=== PATIENT | female | born 1985 | race Caucasian/White ===

== ENCOUNTER 2023-10-16 02:13 | Emergency (ER) | payer SELFPAY ==
[2023-10-16] MEDS ORDERED: ZIPRASIDONE MESYLA 20 MG/VIAL IM ONE (02:52)
[2023-10-16] MEDS ORDERED: LORazepam 2 MG/ML VIAL ONE (03:14)
[2023-10-16 04:13] LABS: Absolute Basophils 0.1 K/uL (0-0.5); Absolute Lymphocytes (CBC) 1.8 K/uL (0.7-4.9); Absolute Monocytes 0.8 K/uL (0.1-1.3); Absolute Neutrophil 9.4 K/uL (1.8-8.0); Basophils % 0.6 % (0-1.3); Eosinophils % 0.3 % (0-4.4); Hematocrit 39.1 % (36.0-45.0); Hemoglobin 13.6 g/dL (12.0-15.0); MCHC 34.8 g/dL (32.0-36.0); MCV 94.9 fL (80-100); MPV 8.8 fL (7.6-11.3); Monocytes % 6.5 % (3.3-12.3); Neutrophils % 77.6 % (41.7-73.7); Platelets 242 thou/uL (152-406); RBC Red Blood Cell Count 4.12 M/uL (3.86-4.86); Red Cell Distribution Width 12.9 % (12.1-15.2)
[2023-10-16 04:16] LABS: Specific Gravity 1.014 (1.005-1.030)
[2023-10-16 04:17] LABS: PT Prothrombin Time 12.1 SECONDS (9.5-12.5); PTT, Activated Partial Thromb 27.4 SECONDS (24.3-36.9); Protime INR 1.1; Specific Gravity 1.014 (1.005-1.030); Urine Bacteria None Seen /HPF (<20); Urine Bilirubin NEGATIVE (Negative); Urine Blood Negative (Negative); Urine Clarity Extremely Turbid (Clear); Urine Color Yellow (Yellow); Urine Culture Reflex Order NOT NEEDED; Urine Glucose NEGATIVE (Negative); Urine Ketones 1+ (Negative); Urine Microscopic Reflex YN ORDER UMIC; Urine Mucus Slight /HPF (None Seen); Urine Nitrite NEGATIVE (Negative); Urine Protein NEGATIVE (Negative); Urine RBC <5 /HPF (None Seen); Urine Urobilinogen Normal (Normal); Urine WBC <5 /HPF (<5)
[2023-10-16] MEDS ORDERED: ONDANSETRON 4 MG/2 ML VIAL ONE (04:22)
[2023-10-16] MEDS ORDERED: THIAMINE 200 MG/2 ML INJ ONE (04:22)
[2023-10-16] MEDS ORDERED: NA CHLORIDE 0.9% 2,000 ML ONE (04:23)
[2023-10-16 04:29] LABS: ALT/SGPT 16 U/L (13-56); AST/SGOT 23 U/L (15-37); Alkaline Phosphatase 69 U/L (45-117); Anion Gap 11.5 mEq/L (5.0-15.0); BUN Blood Urea Nitrogen 12 mg/dL (7-18); Barbiturates NEGATIVE (NEGATIVE); Benzodiazepines NEGATIVE (NEGATIVE); Bicarbonate 22 mEq/L (21-32); Bilirubin Direct 0.2 mg/dL (0-0.2); Bilirubin Indirect, Calculated 0.6 mg/dL (0.2-0.8); Bilirubin Total 0.8 mg/dL (0.2-1.0); Cocaine NEGATIVE (NEGATIVE); Globulin 4.1 g/dL (2.3-3.5); Glomerular Filtration Rate 110 ml/min (=/>90); Glucose Level 98 mg/dL (74-106); METHAMPHETAM POSITIVE (NEGATIVE); Methadone NEGATIVE (NEGATIVE); Opiates NEGATIVE (NEGATIVE); Phencyclidine NEGATIVE (NEGATIVE); Potassium 3.5 mEq/L (3.5-5.1); Protein, Total 8.1 g/dL (6.4-8.2); Sodium Level 134 mEq/L (136-145); THC Cannibis POSITIVE (NEGATIVE)
--- NOTE | 2023-10-16 11:32 | EDPHYS ---
Physician Documentation [facility] Name: Carolyn Aguirre Age: 38 yrs Sex: Female : 1985 Arrival Date: 10/16/2023 Time: 02:13 Bed 3 Private MD: ED Physician Igor Jackson HPI: 10/15 02:18 This 38 yrs old Female presents to ER via Unassigned with complaints of sp4 confusion . 02:18 38-year-old female brought in by EMS for primary complaint of confusion. Patient was sp4 found by bystander on the study and determined to be in incoherent condition. Bystander brought patient to the police department where patient was found confused and unaware of her age. She states she is 13. Patient also states she needs a place to lay down and get some rest. Patient states she does not have a place of residence. Patient states she does not know where she came from. . Historical: - Allergies: 02:22 No Known Allergies; jj7 - PMHx: 02:15 Unable to Obtain; jj7 - Immunization history:: Client reports having NOT received the Covid vaccine. Flu vaccine is not up to date. - Infectious Disease History:: Denies. - Family history:: not pertinent. - Social history:: Smoking status: Patient reports the use of cigarette tobacco products, smokes one pack cigarettes per day. Patient uses alcohol, on a daily basis. " A LOT". ROS: 02:18 Constitutional: ROS not available secondary to disorientation and confusion sp4 02:18 All other systems are negative, 02:18 Unable to obtain ROS due to patient's inability to understand questions, Exam: 02:18 Constitutional: This is a well developed, well nourished patient who is awake, alert, sp4 appears sunburned, moderate confusion and disorientation. Oriented to self and others. Head/Face: Normocephalic, atraumatic. Eyes: Pupils equal round and reactive to light, extra-ocular motions intact. Lids and lashes normal. Conjunctiva and sclera are not injected. Cornea within normal limits. Periorbital areas with no swelling, redness, or edema. ENT: Nares patent. No nasal discharge, no septal abnormalities noted. Tympanic membranes are normal and external auditory canals are clear. Oropharynx with no redness, swelling, or masses, exudates, or evidence of obstruction, uvula midline. Mucous membranes moist. Neck: Trachea midline, no thyromegaly or masses palpated, and no cervical lymphadenopathy. Supple, full range of motion without nuchal rigidity, or vertebral point tenderness. Chest/axilla: Normal chest wall appearance and motion. Nontender with no deformity. No lesions are appreciated. Cardiovascular: Regular rate and rhythm with a normal S1 and S2. No gallops, murmurs, or rubs. Normal PMI, no JVD. No pulse deficits. Respiratory: Lungs have equal breath sounds bilaterally, clear to auscultation and percussion. No rales, rhonchi or wheezes noted. No increased work of breathing, no retractions or nasal flaring. Abdomen/GI: Soft, with normal bowel sounds. No distension or tympany. No guarding or rebound. No evidence of tenderness throughout. Back: No spinal tenderness. No costovertebral tenderness. Skin: Warm, dry with normal turgor. Normal color with no rashes, no lesions, and no evidence of cellulitis. MS/ Extremity: Pulses equal, no cyanosis. Neurovascular intact. Full, normal range of motion. Neuro: Awake and alert, GCS 14, oriented to person and to others . Cranial nerves II-XII grossly intact. Motor strength 5/5 in all extremities. Sensory grossly intact. Psych: Awake, alert, with orientation to self and others. Appears intoxicated 10:42 ECG was reviewed by the Attending Physician. rn Vital Signs: 02:15 BP 118 / 76; Pulse 95; Resp 20; Temp 98.3; Pulse Ox 100% on R/A; Weight 95 kg; Height 5 jj7 ft. 7 in. ; 07:48 BP 106 / 76; Pulse 105; Resp 16; Pulse Ox 98% ; kn 08:45 BP 100 / 74; Pulse 103; Resp 16; kn 11:55 kn 02:15 Body Mass Index 32.80 (95.00 kg, 170.18 cm) j7 11:55 pt refused vital signs Estel[place] Coma Score: 02:18 Eye Response: spontaneous(4). Motor Response: obeys commands(6). Verbal Response: sp4 confused(4). Total: 14. MDM: 02:16 Patient medically screened. sp4 07:09 Differential Diagnosis altered mental status, sepsis, flu, Intoxication . Data sp4 reviewed: vital signs, lab test result(s), CBC, electrolytes, hepatic panel. Consideration of Admission/Observation Escalation of care including admission/observation considered. Transition of care: After a detail discussion of the patient's case, care is transferred to Glenn Etienne MD. ED course: Patient was allowed to rest and relax. Acute confusion stems from methamphetamine intoxication also cannabis intoxication. . 10/15 02:15 Order name: Acetaminophen; Complete Time: 04:58 sp4 10/15 02:15 Order name: Basic Metabolic Panel; Complete Time: 04:58 sp4 10/15 02:15 Order name: CBC with Diff; Complete Time: 04:58 sp4 10/15 02:15 Order name: ETOH Level; Complete Time: 04:58 sp4 10/15 02:15 Order name: Hepatic Function; Complete Time: 04:58 sp4 10/15 02:15 Order name: PT-INR; Complete Time: 04:58 sp4 10/15 02:15 Order name: Test, Urine; Complete Time: 04:58 sp4 10/15 02:15 Order name: Ptt, Activated; Complete Time: 04:58 sp4 10/15 02:15 Order name: Salicylate; Complete Time: 04:58 sp4 10/15 02:15 Order name: Urinalysis w/ reflexes; Complete Time: 04:58 sp4 10/15 02:15 Order name: Urine Drug Screen; Complete Time: 04:58 sp4 10/15 03:01 Order name: CK; Complete Time: 04:58 sp4 10/15 03:01 Order name: TSH; Complete Time: 04:58 sp4 10/15 03:02 Order name: T4 Free; Complete Time: 04:58 sp4 10/15 02:15 Order name: EKG; Complete Time: 02:16 sp4 10/15 02:15 Order name: EKG - Nurse/Tech; Complete Time: 07:53 sp4 10/15 02:15 Order name: IV Saline Lock; Complete Time: 04:34 sp4 10/15 02:15 Order name: Labs collected and sent; Complete Time: 03:39 sp4 10/15 02:15 Order name: Suicide Screening ([place]); Complete Time: 07:53 sp4 EC:42 Rate is 95 beats/min. Rhythm is regular. QRS [place] is Normal. [place] interval is normal. QRS rn interval is normal. QT interval is normal. No Q waves. T waves are Normal. No ST changes noted. Clinical impression: Normal ECG. Interpreted by me. Reviewed by me. Administered Medications: 02:22 Drug: Geodon IM 40 mg IM once Route: IM; Site: right deltoid; rv 12:04 Follow up: Response: No adverse reaction kn 03:19 Drug: LORazepam IM 4 mg IM once Route: IM; Site: left deltoid; rv 12:03 Follow up: Response: No adverse reaction kn 04:25 Drug: Ondansetron IVP 4 mg IVP once; over 2 minutes Route: IVP; Site: right forearm; rv 12:03 Follow up: Response: No adverse reaction kn 04:25 Drug: Thiamine IV 100 mg IV at bolus once Route: IV; Rate: bolus; Site: right forearm; rv 12:02 Follow up: Response: No adverse reaction; IV Status: Completed infusion kn 04:26 Drug: NS 0.9% IV 1000 ml IV at 1 bolus Per protocol; 1000 mL bolus Route: IV; Rate: 1 rv bolus; Site: right forearm; 12:04 Follow up: Response: No adverse reaction; IV Status: Completed infusion; IV Intake: kn 1000ml 04:26 Drug: NS 0.9% IV 1000 ml IV at 1 bolus Per protocol; 1000 mL bolus Route: IV; Rate: 1 rv bolus; Site: right forearm; 12:03 Follow up: Response: No adverse reaction; IV Status: Completed infusion; IV Intake: kn 1000ml Disposition Summary: 10/16/23 11:31 Discharge Ordered Notes: Location: Home rn Problem: new rn Symptoms: have improved rn Condition: Stable rn Diagnosis - Adverse effect of amphetamines rn Followup: rn - With: Private Physician - When: As needed - Reason: Recheck today's complaints, Re-evaluation by your physician Discharge Instructions: - Discharge Summary Sheet rn - Methamphetamines Use Disorder rn Forms: - Medication Reconciliation Form rn - Thank You Letter rn - Antibiotic emergency room rn - Prescription Opioid Use rn - Patient Portal Instructions rn - Leadership Thank You Letter rn Signatures: Dispatcher [employer] Glenn Healy MD MD rn Vicente, Ronaldo, RN RN rv Johnson, Juwairiyah, RN RN jj7 Igor Jackson MD MD sp4 TAMIA GEE RN kn Corrections: (The following items were deleted from the chart) 02:16 02:16 ACETAMINOPHEN+C.LAB.BRZ ordered. EDMS EDMS 02:16 02:16 BASIC METABOLIC PANEL+C.LAB.BRZ ordered. EDMS EDMS 02:16 02:16 CBC+H.LAB.BRZ ordered. EDMS EDMS 02:16 02:16 ETHANOL+C.LAB.BRZ ordered. EDMS EDMS 02:16 02:16 HEPATIC FUNCTION+C.LAB.BRZ ordered. EDMS EDMS 02:16 02:16 PROTIME (+INR)+COAG.LAB.BRZ ordered. EDMS EDMS 02:16 02:16 Test, Urine+UC.LAB.BRZ ordered. EDMS EDMS 02:16 02:16 PTT, ACTIVATED+COAG.LAB.BRZ ordered. EDMS EDMS 02:16 02:16 SALICYLATE+C.LAB.BRZ ordered. EDMS EDMS 02:16 02:16 Urinalysis+U.LAB.BRZ ordered. EDMS EDMS 02:16 02:16 URINE DRUG SCREEN+UC.LAB.BRZ ordered. EDMS EDMS 03:02 03:02 THYROID STIMULAT HORMONE+C.LAB.BRZ ordered. EDMS EDMS
--- NOTE | 2023-10-16 11:32 | ER ---
Nurse's Notes [facility] Name: Carolyn Aguirre Age: 38 yrs Sex: Female : 1985 Arrival Date: 10/16/2023 Time: 02:13 Bed 3 Private MD: Diagnosis: Adverse effect of amphetamines Presentation: 10/15 02:15 Chief complaint: EMS states: PT WAS WAS FOUND WONDERING ON THE STREETS A [employer] jj7 TOOK HER TO THE PD OFFICE. PT CALLED EMS. PT IS CONFUSED. Coronavirus screen: At this time, the client does not indicate any symptoms associated with coronavirus-19. Ebola Screen: No symptoms or risks identified at this time. Initial Sepsis Screen: Does the patient meet any 2 criteria? No. Patient's initial sepsis screen is negative. Does the patient have a suspected source of infection? No. Patient's initial sepsis screen is negative. Risk Assessment: Do you want to hurt yourself or someone else? Unable to obtain. Onset of symptoms is unknown. 02:15 Method Of Arrival: EMS: [facility] jj7 02:15 Acuity: [place] 3 jj7 Triage Assessment: 02:15 General: Appears in no apparent distress. well groomed, Behavior is agitated, anxious, jj7 uncooperative. Pain: Denies pain. Neuro: No deficits noted. Neuro: No deficits noted. Level of Consciousness is awake, alert, confused, Oriented to person. Cardiovascular: No deficits noted. Respiratory: No deficits noted. GI: No deficits noted. : No deficits noted. Historical: - Allergies: :22 No Known Allergies; jj7 - PMHx: 02:15 Unable to Obtain; jj7 - Immunization history:: Client reports having NOT received the Covid vaccine. Flu vaccine is not up to date. - Infectious Disease History:: Denies. - Family history:: not pertinent. - Social history:: Smoking status: Patient reports the use of cigarette tobacco products, smokes one pack cigarettes per day. Patient uses alcohol, on a daily basis. " A LOT". Screenin:22 [facility] ED Fall Risk Assessment (Adult) History of falling in the last 3 months, rv including since admission No falls in past 3 months (0 pts) Confusion or Disorientation Yes (5 pts) Score/Fall Risk Level 3 or more points = High Risk Oriented to surroundings, Maintained a safe environment, Educated pt \\T\\ family on fall prevention, incl call for assistance when getting out of bed, Assessed \\T\\ reinforced patient's understanding of fall precautions. Abuse screen: Denies threats or abuse. Denies injuries from another. Nutritional screening: No deficits noted. Tuberculosis screening: No symptoms or risk factors identified. Assessment: 02:15 Reassessment: SEE TRIAGE ASSESSMENT. [facility] 03:40 Reassessment: unable to establish IV, blood specimen collected and sent to lab, pt is rv refusing IV insertion at this time. 07:27 Reassessment: Pt remains sleeping, but awakens when called. cm10 07:56 Reassessment: Patient appears in no apparent distress at this time. pt able to wake up kn with verbal stimuli, is in no acute distress, vss. pt informed to be d/c soon. pt verbalizes understanding. Patient denies pain at this time. 08:15 Reassessment: Patient appears in no apparent distress at this time. Patient and/or db family updated on plan of care and expected duration. Pain level reassessed. Patient is alert, oriented x 3, equal unlabored respirations, skin warm/dry/pink. PT SITTING UP TALKING WITH STAFF. STATES IS HOMELESS. 11:59 Reassessment: Patient appears in no apparent distress at this time. Patient is alert, kn oriented x 3, equal unlabored respirations, skin warm/dry/pink. Patient states symptoms have improved. Vital Signs: 02:15 BP 118 / 76; Pulse 95; Resp 20; Temp 98.3; Pulse Ox 100% on R/A; Weight 95 kg; Height 5 jj7 ft. 7 in. ; 07:48 BP 106 / 76; Pulse 105; Resp 16; Pulse Ox 98% ; kn 08:45 BP 100 / 74; Pulse 103; Resp 16; kn 11:55 kn 02:15 Body Mass Index 32.80 (95.00 kg, 170.18 cm) [facility] 11:55 pt refused vital signs [place] Coma Score: 02:18 Eye Response: spontaneous(4). Motor Response: obeys commands(6). Verbal Response: sp4 confused(4). Total: 14. ED Course: 02:14 Patient arrived in ED. vk 02:14 Igor Jackson MD is Attending Physician. sp4 02:15 Arm band placed on right wrist. Patient placed in an exam room, on a stretcher, on jj7 pulse oximetry. 02:22 Nato Salguero, SYLVIE is Primary Nurse. rv 02:22 Triage completed. jj7 02:22 Patient has correct armband on for positive identification. Client placed on continuous rv cardiac and pulse oximetry monitoring. NIBP monitoring applied. thread grinder on. 02:22 No provider procedures requiring assistance completed. rv 03:39 T4 Free Sent. rv 03:39 TSH Sent. rv 03:39 CK Sent. rv 03:39 Acetaminophen Sent. rv 03:39 Basic Metabolic Panel Sent. rv 03:39 CBC with Diff Sent. rv 03:39 ETOH Level Sent. rv 03:39 Hepatic Function Sent. rv 03:39 PT-INR Sent. rv 03:39 Test, Urine Sent. rv 03:39 Ptt, Activated Sent. rv 03:39 Salicylate Sent. rv 03:39 Urinalysis w/ reflexes Sent. rv 03:39 Urine Drug Screen Sent. rv 03:39 Initial lab(s) drawn, by me, sent to lab. Missed attempt(s): 20 gauge in right rv antecubital area. 04:26 Inserted saline lock: 22 gauge in right forearm, using aseptic technique. rv 07:48 EKG completed in triage. Results shown to MD. kn 11:15 No apparent distress. Resting quietly. Appears to be sleeping. kn 11:59 Provided Education on: methamphetamines use disorder . kn 11:59 Accessed IV discontinued, intact, bleeding controlled, No redness/swelling at site. kn Administered Medications: 02:22 Drug: Geodon IM 40 mg IM once Route: IM; Site: right deltoid; rv 12:04 Follow up: Response: No adverse reaction kn 03:19 Drug: LORazepam IM 4 mg IM once Route: IM; Site: left deltoid; rv 12:03 Follow up: Response: No adverse reaction kn 04:25 Drug: Ondansetron IVP 4 mg IVP once; over 2 minutes Route: IVP; Site: right forearm; rv 12:03 Follow up: Response: No adverse reaction kn 04:25 Drug: Thiamine IV 100 mg IV at bolus once Route: IV; Rate: bolus; Site: right forearm; rv 12:02 Follow up: Response: No adverse reaction; IV Status: Completed infusion kn 04:26 Drug: NS 0.9% IV 1000 ml IV at 1 bolus Per protocol; 1000 mL bolus Route: IV; Rate: 1 rv bolus; Site: right forearm; 12:04 Follow up: Response: No adverse reaction; IV Status: Completed infusion; IV Intake: kn 1000ml 04:26 Drug: NS 0.9% IV 1000 ml IV at 1 bolus Per protocol; 1000 mL bolus Route: IV; Rate: 1 rv bolus; Site: right forearm; 12:03 Follow up: Response: No adverse reaction; IV Status: Completed infusion; IV Intake: kn 1000ml Medication: 02:22 VIS not applicable for this client. rv Intake: 12:03 IV: 1000ml; Total: 1000ml. kn 12:04 IV: 1000ml; Total: 2000ml. kn Outcome: 08:45 Condition: stable kn 11:31 Discharge ordered by . rn 11:59 Discharged to home kn 11:59 Discharged to home ambulatory, 11:59 Discharge instructions given to patient, 12:04 Patient left the ED. db Signatures: Glenn Etienne MD MD rn Vicente, Ronaldo RN RN Toña Shah RN RN jj7 Umu Valdes RN RN Igor Leung MD MD sp4 Emily Naik, RN RN cm10 Sandy Walker KARLENE, SYLVIE RN martha
[2023-10-16 15:06] VITALS: BP 100/74; TEMP 98.3; O2SAT 98
== END 2023-10-16 12:04 | disposition home or self-care (01) ==
LOC: ER 02:13
DX: R41.0 Disorientation, unspecified (principal); T43.625A Adverse effect of amphetamines, initial encounter
CPT/HCPCS: 36415; 80048; 80076; 80143; 80179; 80307; 81001; 81025; 82077; 82550; 84439; 84443; 85025; 85610; 85730; 93005; 96365; 96366; 96372; 96375; 99285; J2405; J3411; J3486; J7030

== ENCOUNTER 2023-10-17 22:06 | Emergency (ER) | payer SELFPAY ==
--- OUTSIDE RECORDS SUMMARY | 2023-10-17 22:10 | XMS REPORT | Continuity of Care Document ---
Author Name Unknown Address [address] [facility] [address] [place] [address] [facility] Address [address] [facility] [address] [place] [address] Care Team Providers Care Pv Design Engineer Name Role Phone PCP, PATIENT DOES NOT HAVE A Primary Care Physic sahil Unavailable Zain FERNÁNDEZ, Maicol No Attending Clinician [phone] Virgil Small MD Attending Clinician [phone] VIRGIL SMALL Attending Clinician Unavailab Ian Tripp Attending Clinician Unavaila Mervin Brown Attending Clinician Unavailable Nain Nuñez Attending Clinician Unavailable Kelly Weaver Attending Clinician Unavailable Fanta Brannon Attending Clinician Unavailable BAKARI_ Attending Clinician Unavail able PAOLA CORNELL Attending Clinician Unavailab Bandar Bell Attending Clinician Unavailable UNDEFINED Admitting Clinician Unavailable Physician, No Primary or Family Admitting Clinic sahil Unavailable BAKARI_ Admitting Clinician Unavail able PAOLA CORNELL Admitting Clinician Unavailab le Payers Payer Name Policy Type Policy Number Effective Date Expirati on Date Source [facility] [id number] [facility] (O) [id number] Problems Condition Name Condition Details Condition Category Status Onset Date Resolution Date Last Treatment Date Treating Clinician Comments Source Boil of vulva Boil of vulva Disease Active 09-26 00:00: 00 [facility] Depression Depression Disease Active 08-03 00:00: 00 Overview: Formattin g of this note might be different from the original. bipolor [facility] Morbid obesity, unspecifie d obesity type Morbid obesity, unspecifie d obesity type Disease Active 08-03 00:00: 00 [facility] Allergies, Adverse Reactions, Alerts Allergy Name Allergy Type Status Severity Reaction(s) Onset Date Inactive Date Treating Clinician Comments Source No Known Allergie s DA Active U 2022-07 0-17 00:00: 00 [facility] No Known Drug Allergie s DA Active U 4-26 00:00: 00 [facility] No Known Allergie s DA Active U 8-23 00:00: 00 [facility] No Known Allergie s DA Active U 0 8-23 00:00: 00 [facility] NO KNOWN ALLERGIE S Drug Class Active [facility] Social History Social Habit Start Date Stop Date Quantity Comments Source History of tobacco use Cigarette Smoker [facility] of Social function 2019-01-09 00:00:00 2019-01-09 00:00:00 [facility] Alcohol intake 2018-10-30 00:00:00 2018-10-30 00:00:00 Current drinker of alcohol (finding) [facility] Alcohol Comment 2017-10-26 00:00:00 2017-10-26 00:00:00 social [facility] Cigarettes smoked current (pack per day) - Reported 2016-08-03 00:00:00 2016-08-03 00:00:00 [facility] Tobacco use and exposure 2016-08-03 00:00:00 2016-08-03 00:00:00 Smokeless tobacco non-user [facility] Sex Assigned At 1985 00:00:00 1985 00:00:00 [facility] Smoking Status Start Date Stop Date Source Smokes tobacco daily 2016-08-03 00:00:00 [facility] Medications Ordered Medication Name Filled Medication Name Start Date Stop Date Current Medication? Ordering Clinician Indication Dosage Frequency Signature (SIG) Comments Components Source ALPRAZolam (XANAX) tablet 2 mg 09-24 16:15: 00 09-24 16:18 :00 No 2mg 2 mg, Oral, ONCE, 1 dose, On Sun09/25/23 at 1115, JEF [facility] nicotine (NICODERM) 21 mg/24 hr patch 1 Patch 09-24 15:15: 00 Yes 1{patch } 1 Patch, Topical, Administer over 24 Hours, Q24H, First dose on Sun09/25/23 at 1015, Until Discontinu ed, Routine [facility] hydrOXYzine (ATARAX) tablet 50 mg 09-24 15:00: 00 09-24 15:12 :00 No 50mg 50 mg, Oral, ONCE, 1 dose, On Sun09/25/23 at 1000, JEF [facility] LURASIDONE HCL (LATUDA ORAL) 10-30 13:49: 15 Yes Take by mouth. [facility] hydrOXYzine 50 mg tablet 10-30 13:49: 15 Yes 837 50mg Take 50 mg by mouth daily. [facility] medroxyPROG ESTERone (DEPO-PROVE RA) injection 150 mg 10-26 16:15: 00 Yes [id number] 150mg [facility] Immunizations Ordered Immunization Name Filled Immunization Name Date Status Comments Source Influenza Virus Vaccine Quad .5 mL IM 6+ MO (FLUZONE/FLULAVAL/FL UARIX) Unknown Completed [facility] Vital Signs Vital Name Observation Time Observation Value Comments S nicky Systolic blood pressure 2023-09-26 08:43:00 136 mm[Hg] [facility] Diastolic blood pressure 2023-09-26 08:43:00 78 mm[Hg] [facility] Heart rate 2023-09-26 08:43:00 84 /min [facility] Respiratory rate 2023-09-26 08:43:00 20 /min [facility] Oxygen saturation in Arterial blood by Pulse oximetry 2023-09-26 08:43:00 99 /min [place] [facility] Body temperature 2023-09-25 23:20:00 36.67 Rossy [facility] Body weight 2023-09-25 08:57:00 98.884 kg [facility] BMI 2023-09-25 08:57:00 36.28 kg/m2 [facility] Procedures Procedure Date / Time Performed Performing Clinician Source POCT TEST 2023-09-25 10:41:00 David Pittman [facility] URINALYSIS 2023-09-25 10:30:00 Maicol Pittman Un [facility] URINE DRUG (IMMUNOASSAY) - COMPREHENSIVE DRUG SCREEN W/O REFLEX 2023-09-25 10:30:00 Maicol Pittman [facility] COMP. METABOLIC PANEL ([id number]) 2023-09-25 10:18:00 Maicol Pittman [facility] SALICYLATE 2023-09-25 10:18:00 [facility] 2023-09-25 10:18:00 Maicol Pittman Un [facility] COVID-19 (ID NOW RAPID TESTING) 2023-09-25 10:18:00 Maicol Pittman [facility] LAB ONLY COVID INTERPRETATION 2023-09-25 10:18:00 Maicol Pittman [facility] Encounters Start Date/Time End Date/Time Encounter Type Admission Type Attending Clinicians Care Facility Care Department Encounter ID Source 2021-10-25 20:50:00 Inpatient [facility] [id number] [facility] 2021-10-25 20:50:00 Inpatient [facility] [id number] [facility] 2023-09-25 03:59:00 2023-09-26 03:59:00 Emergency Maicol Pittman Lynda [facility] [id number] [facility] 2023-09-25 03:59:00 2023-09-26 03:59:00 Emergency X VIRGIL SMALL [facility] ERT [id number] [facility] 2023-04-17 14:38:00 2023-04-19 11:18:00 Emergency EM Ian Llanes [facility] [id number] [facility] 2023-03-19 13:30:05 2023-03-19 13:30:05 Outpatient [facility] [id number] [place] 2023-01-04 11:17:49 2023-01-04 11:17:49 Outpatient [facility] [id number] [place] 2023-01-01 15:12:05 2023-01-01 15:12:05 Outpatient [facility] [id number] Han Gerald [place] 2022-11-26 17:44:00 2022-11-27 09:04:00 Emergency EM Mervin Tadeo [facility] [id number] [facility] 2022-09-21 06:59:00 2022-09-21 07:50:00 Emergency EM Nain Nuñez [facility] [id number] 23 [facility] 2022-09-20 23:00:00 2022-09-21 04:30:00 Emergency EM Kelly Weaver [facility] [id number] 68 [facility] 2022-09-20 17:22:00 2022-09-20 18:45:00 Emergency EM Fanta Brannon [facility] [id number] [facility] 2021-11-16 05:24:00 2021-11-16 05:24:00 Outpatient MARTITA_DO HOPKINS__ [facility] [id number] [facility] 2021-11-16 05:24:00 2021-11-16 05:24:00 Outpatient ELZA HOPKINS__ [facility] [id number] [facility] 2021-10-26 00:00:00 2021-10-26 00:00:00 Outpatient R PAOLA CORNE[address] [facility] [id number] [facility] 2021-02-21 14:27:00 2021-02-24 20:00:00 Emergency EM [id number] [facility] Results Test Description Test Time Test Comments Results Result Comments Source Salicylate 10:47:14 SALICYLATE<10mg/L2023 5:47 AM [facility] LABORATORY SERVICESTherapeutic Range: ? Analgesic and Antipyretic Use ? 20-100 mg/L ? ? Anti-Inflammatory Use ? 100-250 mg/L Toxic Range: ? Greater than 300 mg/L [facility] ETHANOL 10:47:09 ALCOHOL<10mg/dL09/25/19 5:47 AM [facility] LABORATORY SERVICESToxic Greater than or equal to 80 mg/dL. NOTE: Whole blood values are approximately 10% to 15% lower than serum and plasma. [facility] ([id number][facility]2023-09-25 10:46:48* Test Item Value Reference Range Interpretation Comme nts NA (test code = 8183174594) 137 mmol/L 135-145 K (test code = 4502741131) 3.6 mmol/L 3.5-5.0 CL (test code = 2106320212) 101 mmol/L 98-108 CO2 TOTAL (test code = 0228685004) 26 mmol/L 23-31 AGAP (test code = 9011915581) 10 2-16 BUN (test code = 6940372379) 5 mg/dL 7-23 L GLUCOSE (test code = 4171120113) 93 mg/dL 70-110 CREATININE (test code = 2160-0) 0.64 mg/dL 0.50-1.04 TOTAL BILI (test code = 4823020975) 0.7 mg/dL 0.1-1.1 CALCIUM (test code = 0561750641) 10.0 mg/dL 8.6-10.6 T PROTEIN (test code = 2119885799) 8.0 g/dL 6.3-8.2 ALBUMIN (test code = 2612394835) 5.0 g/dL 3.5-5.0 ALK PHOS (test code = 3060658451) 58 U/L 34-122 ALTv (test code = 1742-6) 15 U/L 5-35 AST(SGOT) (test code = 5124665003) 32 U/L 13-40 eGFR (test code = 20131-6) 116.9 mL/min/1.73m2 CKD-EPI eGFR (2020). Assuming creatinine has been stable day-to-day for at least three months, the eGFR indicates Category G1 (>= 90 mL/min/1.73 m2) Lab Interpretation (test code = 56333-9) Abnormal [facility] [id number] 10:43:00* Test Item Value Reference Range Interpretation Comme nts POCT PREG (test code = 1605) Negative On board controls acceptable with C Line (test code = 3574) Yes POCT PREG LOT # (test code = 3575) [id number] POCT PREG TEST DATE ( test code = 3576) 08/06/2024 Lab Interpretation (test cod e = 45628-2) Normal [facility] [id number] 18:48:00* Test Item Value Reference Range Interpretation Comme nts COVID 19 INHOUSE AG (test co de = [id number]) NEGATIVE NEGATIVE URINALYSIS [id number] 16:30:00* Test Item Value Reference Range Interpretation Comme nts UA COLOR (test code = COLU) Light-Yellow YELLOW UA APPEARANCE (test code = APPU) Cloudy CLEAR A IS THE SAMPLE FROM ER OR L&D?Y IF THE ANSWER IS NO,PLEASE DOCUMENT TWO RN SIGNATURES HERE- by [email or web address] 04/17/23 1629 UA BILIRUBIN DIPSTICK (test code = BILU) NEGATIVE mg/dL NEGATIVE UA SPECIFIC GRAVITY (test code = SGU) 1.008 1.001-1.035 UA PH DIPSTICK (test code = BILLY) 5.5 5.0-8.0 UA UROBILINIOGEN DIPSTICK (test code = URO) Normal mg/dL NEGATIVE UA NITRITE DIPSTICK (test code = RANDA) NEGATIVE NEGATIVE UA LEUKOCYTE ESTERASE W REFLEX (test code = LEUUR) 25 Alicia/uL (Trace) Alicia/uL NEGATIVE A UA WBC (test code = WBCU) 0-5 per HPF 0-5 UA RBC (test code = RBCU) 0-2 #/HPF 0-5 UA EPITHELIAL CELLS (test code = EPIU) MOD per HPF FEW UA BACTERIA (test code = BACU) NONE SEEN #/HPF NONE UA GLUCOSE DIPSTICK (test code = DGLUU) NEGATIVE mg/dL NEGATIVE UA KETONE DIPSTICK (test code = KETU) NEGATIVE mg/dL NEGATIVE UA BLOOD DIPSTICK (test code = MARTINEZ) Negative mg/dL NEGATIVE UA PROTEIN DIPSTICK (test code = PROU) NEGATIVE mg/dL NEGATIVE UA MUCUS (test code = MUCU) FEW #/LPF FEW Urine Source? Clean CatchUR HCG [id number] 16:30:00* Test Item Value Reference Range Interpretation Comme nts UR HCG QUAL (test code = HCGQLU) NEGATIVE This HCGQL test is NOT applicable for MALE patients.Check with nurse about probable order error.If Tumor Marker Test needed, nurse should order test "HCGTU"(Test #550.83142) Urine Source? Clean CatchDRUGS OF ABUSE SCREEN [id number] 16:30:00* Test Item Value Reference Range Interpretation Comme nts URN COCAINE (test code = COCAURN) NEGATIVE See_Comment [Automated kidthing] The system which generated this result transmitted reference range: <300 ng/mL. The reference range was not used to interpret this result as normal/abnormal. URN CANNABINOIDS (test code = CANNABURN) NEGATIVE See_Comment [Automated [employer]] The system which generated this result transmitted reference range: <50 ng/mL. The reference range was not used to interpret this result as normal/abnormal. URN AMPHETAMINE (test code = AMPHETURN) NEGATIVE See_Comment [Automated mes jv] The system which generated this result transmitted reference range: <1000 ng/mL. The reference range was not used to interpret this result as normal/abnormal. URN BARBITURATE (test code = BARBITURN) NEGATIVE See_Comment [Automated [employer] jv] The system which generated this result transmitted reference range: <200 ng/mL. The reference range was not used to interpret this result as normal/abnormal. URN BENZODIAZEPINE (test code = BENZOURN) NEGATIVE See_Comment [Automated mess age] The system which generated this result transmitted reference range: <200 ng/mL. The reference range was not used to interpret this result as normal/abnormal. URN OPIATES (test code = OPIATURN) NEGATIVE See_Comment [Automated [employer] ge] The system which generated this result transmitted reference range: <300 ng/mL. The reference range was not used to interpret this result as normal/abnormal. URN PHENCYCLIDINE (PCP) (test code = PHENCURN) NEGATIVE See_Comment [Automate d message] The system which generated this result transmitted reference range: <25 ng/mL. The reference range was not used to interpret this result as normal/abnormal. URN METHADONE (test code = METHAURN) NEGATIVE See_Comment [Automated messa ge] The system which generated this result transmitted reference range: <300 ng/mL. The reference range was not used to interpret this result as normal/abnormal. Urine Source? Clean CatchBASIC METABOLIC [id number] 16:07:00* Test Item Value Reference Range Interpretation Comme nts SODIUM (test code = NA) 138 mmol/L 136-145 N POTASSIUM (test code = K) 3.7 mmol/L 3.5-5.1 N CHLORIDE (test code = CL) 109.0 mmol/L 98-107 H CARBON DIOXIDE (test code = CO2) 21.0 mmol/L 21-32 N ANION GAP (test code = GAP) 11.7 10-20 N GLUCOSE (test code = GLU) 72 mg/dL 74-106 L BLOOD UREA NITROGEN (test code = BUN) < 5 mg/dL 7-18 L GLOMERULAR FILTRATION RATE (test code = GFR) > 60 mL/min >=60 The Glomerular Filtration Rate is a calculated parameterbased on serum Creatinine, patient age and sex. GFR valuesless than 60 mL/min/1.73 square meters are indicative ofChronic Kidney Disease. Values less than 15 mL/min/1.73square meters indicate Kidney failure. The calculation forGFR is based on the CKD-EPI (2020) calculation. This formulais race indifferent and is the recommended formula for GFRby the National Kidney Foundation for Adults.The GFR will not calculate if the sex is unknown or if thepatient's age is <18 years. CREATININE (test code = CREAT) 0.70 mg/dL 0.55-1.02 N Note change in reference range due to change in reagent. BUN/CREATININE RATIO (test code = BUN/CREA) 6.8 10-20 L CALCIUM (test code = CA) 8.9 mg/dL 8.5-10.1 N HEPATIC FUNCTION [id number] 16:07:00* Test Item Value Reference Range Interpretation Comme nts TOTAL PROTEIN (test code = PROT) 7.7 gram/dL 6.4-8.2 N ALBUMIN (test code = ALB) 3.8 g/dL 3.4-5.0 N GLOBULIN (test code = GLOB) 3.9 gram/dL 2.7-4.2 N ALBUMIN/GLOBULIN RATIO (test code = A/G) 1.0 0.75-1.50 N BILIRUBIN TOTAL (test code = BILT) 0.40 mg/dL 0.0-1.0 N BILIRUBIN DIRECT (test code = BILD) 0.10 mg/dL 0.0-0.20 N SGOT/AST (test code = AST) 30 IUnit/L 15-37 N SGPT/ALT (test code = ALT) 27 IUnit/L 12-78 N ALKALINE PHOSPHATASE TOTAL (test code = ALKP) 51 IUnit/L 45-117 N Note change in reference range due to change in reagent. [id number] 16:07:00* Test Item Value Reference Range Interpretation Comme nts ALCOHOL (test code = ALC) 26 mg/dL 0.0-3.0 H -INTERPRE TIVE DATA NOTE: POSITIVE SCREENING RESULTS SHOULD BE CONSIDERED PRESUMPTIVE.WHEN COLLECTED FOR MEDICAL PURPOSES ONLY. SPECIMEN WILL NOTBE COLLECTED BY CHAIN OF CUSTODY.IF A CONFIRMATION OF POSITIVE RESULTS IS DESIRED, ACONFIRMATION TEST MUST BE REQUESTED BY THE PHYSICIAN AT ANADDITIONAL CHARGE TO THE PATIENT. CBC W/O [id number] 15:53:00* Test Item Value Reference Range Interpretation Comme nts WHITE BLOOD CELL (test code = WBC) 6.9 K/mm3 4.5-12.5 N RED BLOOD CELL (test code = RBC) 4.50 mill/mm3 3.7-5.2 N HEMOGLOBIN (test code = HGB) 15.5 gram/dL 11.5-15.5 N HEMATOCRIT (test code = HCT) 46.1 % 36.0-46.0 H MEAN CELL VOLUME (test code = MCV) 102.4 fL 80-98 H MEAN CELL HGB (test code = MCH) 34.4 picogram 27.0-33.0 H MEAN CELL HGB CONCETRATION (test code = MCHC) 33.6 gram/dL 33.0-36.0 N RED CELL DISTRIBUTION WIDTH (test code = RDW) 12.6 % 11.6-16.2 N PLATELET COUNT (test code = PLT) 228 K/mm3 150-450 N MEAN PLATELET VOLUME (test c ode = MPV) 10.0 fL 6.7-11.0 N VAGINAL PATHOGENS DNA [id number] 14:00:43* Test Item Value Reference Range Interpretation Comme nts BROOKE SPECIES (test code = 73606) NEGATIVE NEGATIVE G. VAGINALIS (test code = 60432) POSITIVE NEGATIVE A T. VAGINALIS (test code = 66563) NEGATIVE NEGATIVE Note: The [facility] VPIII Microbial Identification Testis a DNA probe test intended for use in the detectionand identification of Brooke species, Gardnerellavaginalis and Trichomonas vaginalis nucleic acid. UNLESS OTHERWISE INDICATED, ALL TESTING PERFORMED AT [facility] [address] [place] [address], [place] [address] SHELL FREEZING MACHINE OPERATOR: FINN CUEVAS M.D. CLIA NUMBER [id number] [facility] [place] [id number] HEPATIC FUNCTION [id number] 19:32:00* Test Item Value Reference Range Interpretation Comme nts TOTAL PROTEIN (test code = PROT) 8.1 G/DL 6.4-8.2 N ALBUMIN (test code = ALB) 3.4 G/DL 3.4-5.0 N BILIRUBIN TOTAL (test code = BILT) 0.40 MG/DL 0.2-1.2 N BILIRUBIN DIRECT (test code = BILD) 0.10 MG/DL 0.00-0.30 N BILIRUBIN INDIRECT (test cod e = BILIND) 0.30 MG/DL 0.2-1.2 N SGOT/AST (test code = AST) 19 Unit/L 15-37 N SGPT/ALT (test code = ALT) 53 Unit/L 12-78 N ALKALINE PHOSPHATASE TOTAL ( test code = ALKP) 65 Unit/L 45-117 N [id number] 19:32:00* Test Item Value Reference Range Interpretation Comme nts ALCOHOL (test code = ALC) < 3 MG/DL 0-10 N BASIC METABOLIC [id number] 19:32:00* Test Item Value Reference Range Interpretation Comme nts SODIUM (test code = NA) 135 mmol/L 134-147 N POTASSIUM (test code = K) 4.4 mmol/L 3.4-5.0 N CHLORIDE (test code = CL) 104 mmol/L 100-108 N CARBON DIOXIDE (test code = CO2) 29 mmol/L 21-32 N ANION GAP (test code = GAP) 2.0 GAP calc 4.0-15.0 L GLUCOSE (test code = GLU) 191 MG/DL 70-110 H BLOOD UREA NITROGEN (test code = BUN) 26 MG/DL 7-18 H GLOMERULAR FILTRATION RATE (test code = GFR) >=60 max estimate estGFR >60 The Glomerular Filtration Rate is a calculated parameterbased on serum Creatinine, patient age and sex. GFR valuesless than 60 mL/min/1.73 square meters are indicative ofChronic Kidney Disease. Values less than 15 mL/min/1.73square meters indicate Kidney failure. The calculation forGFR is based on the CKD-EPI (2020) calculation. This formulais race indifferent and is the recommended formula for GFRby the National Kidney Foundation for Adults.The GFR will not calculate if the sex is unknown or if thepatient's age is <18 years. CREATININE (test code = CREAT) 0.9 MG/DL 0.6-1.0 N CALCIUM (test code = CA) 8.9 MG/DL 8.5-10.1 N UA RFLX MICR CULT IF [id number] 19:23:00* Test Item Value Reference Range Interpretation Comme nts UA COLOR (test code = COLU) STRAW discript YEL/STRAW UA APPEARANCE (test code = APPU) CLEAR discript CLEAR UA GLUCOSE DIPSTICK (test code = DGLUU) NEGATIVE mg/dL NEG UA BILIRUBIN DIPSTICK (test code = BILU) NEGATIVE mg/dL NEG UA KETONE DIPSTICK (test code = KETU) NEGATIVE mg/dL NEG UA SPECIFIC GRAVITY (test code = SGU) <=1.005 SG 1.005-1.030 UA BLOOD DIPSTICK (test code = MARTINEZ) NEGATIVE mg/DL NEG UA PH DIPSTICK (test code = BILLY) 6.5 pH UNITS 5.0-7.0 UA PROTEIN DIPSTICK (test code = PROU) NEGATIVE mg/dL NEG UA UROBILINIOGEN DIPSTICK (test code = URO) 0.2 mg/dL <2.0 UA NITRITE DIPSTICK (test code = RANDA) NEGATIVE SCREEN NEG UA LEUKOCYTE ESTERASE DIPSTICK (test code = LEUU) NEGATIVE Leuk/mcL NEGATIVE Indication for culture: Gross HematuriaSOURCE OF URINE: CLEAN CATCHDRUGS OF ABUSE SCREEN [id number] 19:23:00* Test Item Value Reference Range Interpretation Comme nts URN COCAINE (test code = COCAURN) NEGATIVE SCcutoff See_Comment UNCONFIRMED SCREENING RESULTS SHOULD NOT BE USED FORNON-MEDICAL PURPOSES. [Automated message] The system which generated this result transmitted reference range: <300 NG/ML. The reference range was not used to interpret this result as normal/abnormal. URN CANNABINOIDS (test code = CANNABURN) NEGATIVE SCcutoff See_Comment UNCONFIRMED SCREENING RESULTS SHOULD NOT BE USED FORNON-MEDICAL PURPOSES. [Automated message] The system which generated this result transmitted reference range: <50 NG/ML. The reference range was not used to interpret this result as normal/abnormal. URN AMPHETAMINE (test code = AMPHETURN) NEGATIVE SCcutoff See_Comment UNCONFIRMED SCREENING RESULTS SHOULD NOT BE USED FORNON-MEDICAL PURPOSES. [Automated message] The system which generated this result transmitted reference range: <1000 NG/ML. The reference range was not used to interpret this result as normal/abnormal. URN BARBITURATE (test code = BARBITURN) NEGATIVE SCcutoff See_Comment UNCONFIRMED SCREENING RESULTS SHOULD NOT BE USED FORNON-MEDICAL PURPOSES. [Automated message] The system which generated this result transmitted reference range: <200 NG/ML. The reference range was not used to interpret this result as normal/abnormal. URN BENZODIAZEPINE (test code = BENZOURN) NEGATIVE SCcutoff See_Comment UNCONFIRMED SCREENING RESULTS SHOULD NOT BE USED FORNON-MEDICAL PURPOSES. [Automated message] The system which generated this result transmitted reference range: <200 NG/ML. The reference range was not used to interpret this result as normal/abnormal. URN OPIATES (test code = OPIATURN) POSITIVE SCcutoff See_Comment A UNCONFIRMED SCREENING RESULTS SHOULD NOT BE USED FORNON-MEDICAL PURPOSES. [Automated message] The system which generated this result transmitted reference range: <300 NG/ML. The reference range was not used to interpret this result as normal/abnormal. URN PHENCYCLIDINE (PCP) (test code = PHENCURN) NEGATIVE SCcutoff See_Comment UNCONFIRMED SCREENING RESULTS SHOULD NOT BE USED FORNON-MEDICAL PURPOSES. [Automated message] The system which generated this result transmitted reference range: <25 NG/ML. The reference range was not used to interpret this result as normal/abnormal. URN METHADONE (test code = METHAURN) NEGATIVE SCcutoff See_Comment UNCONFIRMED SCREENING RESULTS SHOULD NOT BE USED FORNON-MEDICAL PURPOSES. [Automated message] The system which generated this result transmitted reference range: <300 NG/ML. The reference range was not used to interpret this result as normal/abnormal. Indication for culture: Gross HematuriaSOURCE OF URINE: CLEAN CATCHHCG SERUM 2022-11-26 19:10:00* Test Item Value Reference Range Interpretation Comme nts HCG SERUM (test code = HCG) < 1 mi-IU/ML 0-6 N 0 - 6 NOT PREGNA NT > 6 SUGGESTIVE OF EARLY RISES TWO FOLD EVERY 2 DAYS; SUGGEST RECONFIRMING AFTER 2 DAYS. 150,000-200,[address] TRIME[address] 10,000 - 50,000 2ND & 3RD TRIMESTER [id number] 19:10:00* Test Item Value Reference Range Interpretation Comme nts MAGNESIUM (test code = MAG) 1.7 MG/DL 1.8-2.4 L CBC W/AUTO [id number] 18:58:00* Test Item Value Reference Range Interpretation Comme nts WHITE BLOOD CELL (test code = WBC) 10.1 K/mm3 3.5-11.0 N RED BLOOD CELL (test code = RBC) 4.16 M/mm3 4.70-6.10 L HEMOGLOBIN (test code = HGB) 13.6 G/DL 10.4-14.9 N HEMATOCRIT (test code = HCT) 38.8 % 31.5-44.1 N MEAN CELL VOLUME (test code = MCV) 93.3 Fl 84.5-98.6 N MEAN CELL HGB (test code = MCH) 32.7 pg 27.0-34.2 N MEAN CELL HGB CONCETRATION (test code = MCHC) 35.1 G/DL 31.5-34.0 H RED CELL DISTRIBUTION WIDTH (test code = RDW) 12.3 SD 11.5-14.5 N PLATELET COUNT (test code = PLT) 245 K/mm3 150-450 N MEAN PLATELET VOLUME (test c ode = MPV) 10.50 fL 7.0-10.5 N NEUTROPHIL % (test code = NT%) 71.6 % 40-76 N IMMATURE GRANULOCYTE % (test code = IG%) 0.3 % 0.0-5.0 N LYMPHOCYTE % (test code = LY%) 22.0 % 20.5-51.1 N MONOCYTE % (test code = MO%) 5.4 % 1.7-9.3 N EOSINOPHIL % (test code = EO%) 0.4 % 0.0-6.0 N BASOPHIL % (test code = BA%) 0.3 % 0.0-2.0 N NUCLEATED RBC % (test code = NRBC%) 0.0 /100WBC% 0.0-1.0 N NEUTROPHIL # (test code = NT#) 7.3 K/mm3 1.8-7.6 N IMMATURE GRANULOCYTE # (test code = IG#) 0.03 x10 3/uL 0.00-0.03 N LYMPHOCYTE # (test code = LY#) 2.2 K/mm3 0.6-3.2 N MONOCYTE # (test code = MO#) 0.6 K/mm3 0.3-1.1 N EOSINOPHIL # (test code = EO#) 0.0 K/mm3 0.0-0.4 N BASOPHIL # (test code = BA#) 0.0 K/mm3 0.0-0.1 N NUCLEATED RBC # (test code = NRBC#) 0.0 K/mm3 0.0-0.1 N MANUAL DIFF REQUIRED (test c ode = MDIFF) NO DIFF/SCN CRITERIA - CT HEAD/BRAIN W/O [id number] 02:38:[address] [facility] [place] LUIS ENRIQUE MARSHALL : 1985 Sex: F Patient Name: LUIS ENRIQUE MARSHALL Unit No: [id number] EXAMS: CPT CODE: [id number] CT HEAD/BRAIN W/O CONT [id number]: - CT HEAD/BRAIN W/O CONT HISTORY: Headache. TECHNIQUE: Axial tomograms through the brain were obtained without intravenous contrast. This exam was performed according to our departmental dose-optimization program, which includes automated exposure control, adjustment of the mA and/or kV accor ding to patient size and/or use of iterative reconstruction technique. COMPARISON: None available time of interpretation. FINDINGS: There is no intracranial hemorrhage, or mass effect. The ventricular system and sulci are age-appropriate. The osseous structures and orbits, show no significant abnor malities. The visualized sinuses are relatively clear. The soft tissues are unremarkable. IMPRESSION: No evidence of acute intracranial abnormality or hemorrhage. at 0238 Reported and signed by: Temo Bowden MD CC: Kelly Weaver MD Technologist: Jim Hurd CTDI: DLP: Trnscrpt: 09/21/2022 (0238) [email or web address] [facility] NAME: LUIS ENRIUQE MARSHALL [id number] PHYS: SHUN. [place] [address] : 1985 AGE: 36SEX: F LOC: [facility] PHONE #: [phone] EXAM DATE: 09/21/2022 STATUS: REG ER FAX #: [phone] RAD #: D/C DT PAGE 1 Signed Report Patient Name: LUIS ENRIQUE MARSHALL Unit No: [id number] EXAMS: CPT CODE: [id number] CT HEAD/BRAIN W/O CONT 99911 (Continued) Orig Print D/T: S: 09/21/2022 (0241) [facility] NAME: LUIS ENRIQUE MARSHALL [id number] PHYS: SHUN. [place] [address] : 1985 AGE: 36 SEX: F LOC: [facility] PHONE #: [phone] EXAM DATE: 09/21/2022 STATUS: REG ER FAX #: [phone] RAD #: D/C DT PAGE 2 Signed ReportComplete Blood Count Auto [id number] 23:10:00* Test Item Value Reference Range Interpretation Comme nts White Blood Count (test code = WBCT) 8.9 x10 3/uL 4.4-10.5 N Red Blood Count (test code = RBC) 4.36 x10 6/uL 3.75-5.20 N Hemoglobin (test code = HGBT) 14.3 g/dL 12.2-14.8 N Hematocrit (test code = HCTT) 42.1 % 36.5-44.4 N Mean Corpuscular Volume (kalpana t code = MCV) 96.60 fL 80.00-100.00 N Mean Corpuscular Hemoglobin (test code = MCH) 32.8 pg 27.0-32.5 H Mean Corpuscular HGB Conc (test code = MCHC) 34.00 g/dL 32.00-37.50 N RDW Coefficient of Variation (test code = RDWCV) 12.0 % 11.5-14.5 N Platelet Count (test code = PLTT) 248.0 x10 3/uL 140.0-440.0 N Mean Platelet Volume (test code = MPV) 10.4 fL Immature Granulocytes % (Aut o) (test code = IMMGRAN%) 0.2 % 0.0-5.0 N Neutrophils % (Auto) (test code = NE%) 70.7 % 36.0-70.0 H Lymphocytes % (Auto) (test code = LY%) 21.9 % 12.0-44.0 N Monocytes % (Auto) (test cod e = MO%) 5.9 % 0.0-11.0 N Eosinophils % (Auto) (test code = EO%) 0.9 % 0.0-7.0 N Basophils % (Auto) (test cod e = BA%) 0.4 % 0.0-2.0 N Immature Granulocytes # (Aut o) (test code = IMMGRAN#) 0.02 x10 3/uL Neutrophils # (Auto) (test code = NE#) 6.3 x10 3/uL 1.6-7.4 N Lymphocytes # (Auto) (test code = LY#) 1.96 x10 3/uL 0.50-4.60 N Monocytes # (Auto) (test cod e = MO#) 0.53 x10 3/uL 0.00-1.20 N Eosinophils # (Auto) (test code = EO#) 0.08 x10 3/uL 0.00-0.74 N Basophils # (Auto) (test cod e = BA#) 0.04 x10 3/uL 0.00-0.21 N nRBC Abs (test code = NRBCA) 0 nRBC Pct (test code = NRBCP) 0 % Comprehensive Metabolic [id number] 23:10:00* Test Item Value Reference Range Interpretation Comme nts SODIUM (test code = NA) 143.0 mmol/L 136.0-145.0 N Potassium,K (test code = K) 3.3 mmol/L 3.0-5.1 N Chloride (test code = CL) 107 mmol/L 98-107 N Carbon Dioxide (test code = CO2) 29 mmol/L 20-31 N Anion Gap (test code = GAP) 7 mmol/L 5-15 N Blood Urea Nitrogen (test co de = BUN) 18 mg/dL 9-23 N Creatinine (test code = CREATT) 0.86 mg/dL 0.55-1.02 N Creatinine Clr Calc Pharmacy (test code = CRCLPHA) 84.18 mL/min Estimated GFR ( Amer[place] ca (test code = EGFRAA) > 60 mL/min/1.73m2 Estimated GFR (Non Afr Amer[place] ca (test code = EGFRNAA) > 60 mL/min/1.73m2 BUN/Creatinine Ratio (test c ode = BCRATIO) 21 ratio 10-20 H Glucose (test code = GLU) 99 mg/dL 74-106 N Osmolality,Calculated (test code = OSMOC) 297.4 Calcium (test code = CA) 9.4 mg/dL 8.3-10.6 N Bilirubin,Total (test code = BILIT) 0.3 mg/dL 0.2-1.1 N Aspartate Amino Transferase (test code = AST) 11 U/L 0-34 N Alanine Aminotransferase (te st code = ALT) 12 U/L 10-49 N Total Protein (test code = TP) 6.6 g/dL 5.7-8.2 N Albumin Level (test code = ALB) 4.2 g/dL 3.2-4.8 N Globulin (test code = GLOB) 2.4 mg/dL 2.3-3.5 N Albumin/Globulin Ratio (test code = AGRATIO) 1.8 ratio 0.8-2.0 N Alkaline Phosphatase (test c ode = ALP) 56 U/L 46-116 N [id number] 23:10:00* Test Item Value Reference Range Interpretation Comme nts Acetaminophen (test code = ACET) < 0.2 mg/dL Interpretive Com ment: Therapeutic range: 1.0-2.0 mg/dl Toxic concentration 4 hours post ingestion: >15.0 mg/dl Toxic concentration 12 hours post ingestion: >4.0 mg/dl Ethanol [id number] 23:10:00* Test Item Value Reference Range Interpretation Comme nts Ethanol (test code = ETOH) 4 mg/dL The pharmacologi jonn response to blood alcohol levels mayvary from individual to individual. The fatal concentrationhas been reported to be >400mg/dL. [id number] 23:10:00* Test Item Value Reference Range Interpretation Comme nts Salicylate (test code = ELOY) < 3.0 mg/dL 0.3-10.0 N Salicylate is to xic above 30 mg/dL for adults. UA, Urinalysis Rflx Cult/[id number] 22:42:00* Test Item Value Reference Range Interpretation Comme nts Color,Urine (test code = UCOL) Yellow Yellow Clarity,Urine (test code = UCLAR) Clear Clear Ph, Urine (test code = UPH) 6.5 5.0-9.0 N Specific [place],Urine (test code = USG) >= 1.030 1.005-1.030 N Blood,Urine (test code = UBLD) Negative mg/dL Negative Protein,Urine (test code = UPRO) Trace mg/dL Negative A Glucose,Urine (UA) (test cod e = UGLU) Negative mg/dL Negative Ketones,Urine (test code = UKET) Trace mg/dL Negative A Nitrate,Urine (test code = UNIT) Negative Negative Bilirubin,Urine (test code = UBIL) Negative mg/dL Negative Urobilinogen,Urine (test cod e = UURO) 1.0 E.U./dL Normal Leukocyte Esterase,Urine (te st code = ULEU) Small mg/dL Negative A UF REFLEXUF REFLEXHCG, Urine Qual (LAB)[id number] 22:42:00* Test Item Value Reference Range Interpretation Comme nts HCG, Urine, Qual (test code = HCGU) Negative Negative Urine [id number] 22:42:00* Test Item Value Reference Range Interpretation Comme nts RBC,Urine (test code = URBCUF) None Seen /HPF 0-2 WBC,Urine (test code = UWBCUF) 6-10 /HPF 0-5 A Epithelial Cell,Urine (test code = UECUF) 0-5 /HPF 0-5 Casts,Urine (test code = UCASTUF) 0-5 /LPF None Seen Bacteria,Urine (test code = UBACTUF) None Seen /hpf None Seen UF REFLEXUF REFLEXDrug Screen,[id number] 22:42:00* Test Item Value Reference Range Interpretation Comme nts PCP Phencyclidine Screen,Uri ne (test code = PCPU) Negative Negative Amphetamine Screen,Urine (te st code = AMPU) Negative Negative Methadone Screen,Urine (test code = METHU) Negative Negative Opiate Screen,Urine (test co de = UOPIS) Negative Negative Barbituates Screen,Urine (te st code = BARBU) Negative Negative Benzodiazepines Screen,Urine (test code = UBENZS) Negative Negative Cocaine Screen,Urine (test c ode = UCOCS) Negative Negative Cannabinoid Screen,Urine (te st code = UTHCS) Negative Negative Propoxyphene Screen, Urine ( test code = UPROP) Negative Negative Sars-CoV-2/FLU A/B RSV [id number] 20:38:00* Test Item Value Reference Range Interpretation Comme nts Sars-CoV-2/FLU A/B RSV PCR (test code = SARSFLURSVPCR) For use under Emergency Use Authorization (EUA) only. Sars-CoV-2/FLU A/B RSV PCR (test code = SARSFLURSVPCR1.1) Reference Range: Negative Influenza A PCR: (test code = Influenza A PCR:) Negative by Nucleic Acid Amplification Influenza B PCR: (test code = Influenza B PCR:) Negative by Nucleic Acid Amplification RSV PCR Result: (test code = RSV PCR Result:) Negative by Nucleic Acid Amplification SARS-CoV-2 PCR Result: (test code = SARS-CoV-2 PCR Result:) Negative by RT-PCR COVID 19 INHOUSE [id number] 21:02:00* Test Item Value Reference Range Interpretation Comme nts COVID 19 INHOUSE AG (test co de = [id number]) NEGATIVE NEGATIVE BASIC METABOLIC [id number] 16:13:00* Test Item Value Reference Range Interpretation Comme nts SODIUM (test code = NA) 137 mmol/L 136-145 N POTASSIUM (test code = K) 3.4 mmol/L 3.5-5.1 L CHLORIDE (test code = CL) 109.0 mmol/L 98-107 H CARBON DIOXIDE (test code = CO2) 22.0 mmol/L 21-32 N ANION GAP (test code = GAP) 9.4 10-20 L GLUCOSE (test code = GLU) 87 mg/dL 74-106 N BLOOD UREA NITROGEN (test code = BUN) 8 mg/dL 7-18 N GLOMERULAR FILTRATION RATE (test code = GFR) > 60 mL/min See_Comment Estimated GFR by using Modified MDRD formula.Chronic kidney disease is defined as either kidney damageor GFR <60 mL/min/1.73 m2 for >3 months. [Automated message] The system which generated this result transmitted reference range: >=60. The reference range was not used to interpret this result as normal/abnormal. CREATININE (test code = CREAT) 1.00 mg/dL 0.55-1.02 N Note change in reference range due to change in reagent. BUN/CREATININE RATIO (test code = BUN/CREA) 7.8 10-20 L CALCIUM (test code = CA) 8.9 mg/dL 8.5-10.1 N HEPATIC FUNCTION [id number] 16:13:00* Test Item Value Reference Range Interpretation Comme nts TOTAL PROTEIN (test code = PROT) 7.1 gram/dL 6.4-8.2 N ALBUMIN (test code = ALB) 3.9 g/dL 3.4-5.0 N GLOBULIN (test code = GLOB) 3.2 gram/dL 2.7-4.2 N ALBUMIN/GLOBULIN RATIO (test code = A/G) 1.2 0.75-1.50 N BILIRUBIN TOTAL (test code = BILT) 0.50 mg/dL 0.0-1.0 N BILIRUBIN DIRECT (test code = BILD) 0.20 mg/dL 0.0-0.20 N SGOT/AST (test code = AST) 48 IUnit/L 15-37 H SGPT/ALT (test code = ALT) 28 IUnit/L 12-78 N ALKALINE PHOSPHATASE TOTAL (test code = ALKP) 56 IUnit/L 45-117 N Note change in reference range due to change in reagent. HCG SERUM [id number] 16:13:00* Test Item Value Reference Range Interpretation Comme nts HCG SERUM QUAL (test code = HCGQL) NEGATIVE NEGATIVE This HCGQL test is NOT applicable for MALE patients.Check with nurse about probable order error.If Tumor Marker Test needed, nurse should order test "HCGTU"(Test #550.75127) [id number] 16:13:00* Test Item Value Reference Range Interpretation Comme nts ACETAMINOPHEN (test code = ACET) < 0.2 mg/dL 1.0-3.0 L [id number] 16:13:00* Test Item Value Reference Range Interpretation Comme nts SALICYLATE (test code = ELOY) < 3.0 mg/dL 2.8-20.0 N [id number] 16:13:00* Test Item Value Reference Range Interpretation Comme nts ALCOHOL (test code = ALC) 18 mg/dL 0.0-3.0 H -INTERPRE TIVE DATA NOTE: POSITIVE SCREENING RESULTS SHOULD BE CONSIDERED PRESUMPTIVE.WHEN COLLECTED FOR MEDICAL PURPOSES ONLY. SPECIMEN WILL NOTBE COLLECTED BY CHAIN OF CUSTODY.IF A CONFIRMATION OF POSITIVE RESULTS IS DESIRED, ACONFIRMATION TEST MUST BE REQUESTED BY THE PHYSICIAN AT ANADDITIONAL CHARGE TO THE PATIENT. BASIC METABOLIC [id number] 16:05:00* Test Item Value Reference Range Interpretation Comme nts SODIUM (test code = NA) mmol/L 136-145 POTASSIUM (test code = K) mmol/L 3.5-5.1 CHLORIDE (test code = CL) mmol/L 98-107 CARBON DIOXIDE (test code = CO2) mmol/L 21-32 ANION GAP (test code = GAP) 10-20 GLUCOSE (test code = GLU) mg/dL 74-106 BLOOD UREA NITROGEN (test code = BUN) mg/dL 7-18 GLOMERULAR FILTRATION RATE (test code = GFR) mL/min See_Comment [Automate d message] The system which generated this result transmitted reference range: >=60. The reference range was not used to interpret this result as normal/abnormal. CREATININE (test code = CREAT) mg/dL 0.55-1.02 BUN/CREATININE RATIO (test code = BUN/CREA) 10-20 CALCIUM (test code = CA) mg/dL 8.5-10.1 HEPATIC FUNCTION [id number] 16:05:00* Test Item Value Reference Range Interpretation Comme nts TOTAL PROTEIN (test code = PROT) gram/dL 6.4-8.2 ALBUMIN (test code = ALB) g/dL 3.4-5.0 GLOBULIN (test code = GLOB) gram/dL 2.7-4.2 ALBUMIN/GLOBULIN RATIO (test code = A/G) 0.75-1.50 BILIRUBIN TOTAL (test code = BILT) mg/dL 0.0-1.0 BILIRUBIN DIRECT (test code = BILD) mg/dL 0.0-0.20 SGOT/AST (test code = AST) IUnit/L 15-37 SGPT/ALT (test code = ALT) IUnit/L 12-78 ALKALINE PHOSPHATASE TOTAL ( test code = ALKP) IUnit/L 45-117 HCG SERUM [id number] 16:05:00* Test Item Value Reference Range Interpretation Comme nts HCG SERUM QUAL (test code = HCGQL) NEGATIVE NEGATIVE This HCGQL test is NOT applicable for MALE patients.Check with nurse about probable order error.If Tumor Marker Test needed, nurse should order test "HCGTU"(Test #550.94455) [id number] 16:05:00* Test Item Value Reference Range Interpretation Comme nts ACETAMINOPHEN (test code = ACET) mg/dL 1.0-3.0 [id number] 16:05:00* Test Item Value Reference Range Interpretation Comme nts SALICYLATE (test code = ELOY) mg/dL 2.8-20.0 [id number] 16:05:00* Test Item Value Reference Range Interpretation Comme nts ALCOHOL (test code = ALC) mg/dL 0.0-3.0 URINALYSIS [id number] 16:05:00* Test Item Value Reference Range Interpretation Comme nts UA COLOR (test code = COLU) COLORLESS YELLOW A UA APPEARANCE (test code = APPU) CLEAR CLEAR UA GLUCOSE DIPSTICK (test code = DGLUU) NEGATIVE mg/dL NEGATIVE UA BILIRUBIN DIPSTICK (test code = BILU) NEGATIVE mg/dL NEGATIVE UA KETONE DIPSTICK (test code = KETU) NEGATIVE mg/dL NEGATIVE UA SPECIFIC GRAVITY (test code = SGU) 1.001 1.001-1.035 UA BLOOD DIPSTICK (test code = MARTINEZ) 0.5 mg/dL (2+) mg/dL NEGATIVE A UA PH DIPSTICK (test code = BILLY) 6.5 5.0-8.0 UA PROTEIN DIPSTICK (test code = PROU) NEGATIVE mg/dL NEGATIVE UA UROBILINIOGEN DIPSTICK (test code = URO) Normal mg/dL NEGATIVE UA NITRITE DIPSTICK (test code = RANDA) NEGATIVE NEGATIVE UA LEUKOCYTE ESTERASE W REFLEX (test code = LEUUR) NEGATIVE Alicia/uL NEGATIVE UA WBC (test code = WBCU) 3-5 per HPF 0-5 UA RBC (test code = RBCU) 0-2 #/HPF 0-5 UA EPITHELIAL CELLS (test code = EPIU) Few (2-5/hpf) per HPF FEW UA BACTERIA (test code = BACU) FEW #/HPF NONE A Urine Source? Clean CatchDRUGS OF ABUSE SCREEN [id number] 16:05:00* Test Item Value Reference Range Interpretation Comme nts URN COCAINE (test code = COCAURN) NEGATIVE See_Comment [Automated [employer]] The system which generated this result transmitted reference range: <300 ng/mL. The reference range was not used to interpret this result as normal/abnormal. URN CANNABINOIDS (test code = CANNABURN) NEGATIVE See_Comment [Automated [employer] jv] The system which generated this result transmitted reference range: <50 ng/mL. The reference range was not used to interpret this result as normal/abnormal. URN AMPHETAMINE (test code = AMPHETURN) NEGATIVE See_Comment [Automated [employer] jv] The system which generated this result transmitted reference range: <1000 ng/mL. The reference range was not used to interpret this result as normal/abnormal. URN BARBITURATE (test code = BARBITURN) NEGATIVE See_Comment [Automated [employer] jv] The system which generated this result transmitted reference range: <200 ng/mL. The reference range was not used to interpret this result as normal/abnormal. URN BENZODIAZEPINE (test code = BENZOURN) NEGATIVE See_Comment [Automated mess age] The system which generated this result transmitted reference range: <200 ng/mL. The reference range was not used to interpret this result as normal/abnormal. URN OPIATES (test code = OPIATURN) NEGATIVE See_Comment [Automated [employer]] The system which generated this result transmitted reference range: <300 ng/mL. The reference range was not used to interpret this result as normal/abnormal. URN PHENCYCLIDINE (PCP) (test code = PHENCURN) NEGATIVE See_Comment [Automate d message] The system which generated this result transmitted reference range: <25 ng/mL. The reference range was not used to interpret this result as normal/abnormal. URN METHADONE (test code = METHAURN) NEGATIVE See_Comment [Automated [employer]] The system which generated this result transmitted reference range: <300 ng/mL. The reference range was not used to interpret this result as normal/abnormal. Urine Source? Clean CatchCBC W/O [id number] 16:01:00* Test Item Value Reference Range Interpretation Comme nts WHITE BLOOD CELL (test code = WBC) 10.4 K/mm3 4.5-12.5 N RED BLOOD CELL (test code = RBC) 4.25 mill/mm3 3.7-5.2 N HEMOGLOBIN (test code = HGB) 13.9 gram/dL 11.5-15.5 N HEMATOCRIT (test code = HCT) 43.3 % 36.0-46.0 N MEAN CELL VOLUME (test code = MCV) 101.9 fL 80-98 H MEAN CELL HGB (test code = MCH) 32.7 picogram 27.0-33.0 N MEAN CELL HGB CONCETRATION (test code = MCHC) 32.1 gram/dL 33.0-36.0 L RED CELL DISTRIBUTION WIDTH (test code = RDW) 12.8 % 11.6-16.2 N PLATELET COUNT (test code = PLT) 244 K/mm3 150-450 N MEAN PLATELET VOLUME (test c ode = MPV) 10.6 fL 6.7-11.0 N URINALYSIS [id number] 15:58:00* Test Item Value Reference Range Interpretation Comme nts UA COLOR (test code = COLU) YELLOW UA APPEARANCE (test code = APPU) CLEAR UA BILIRUBIN DIPSTICK (test code = BILU) NEGATIVE UA SPECIFIC GRAVITY (test code = SGU) 1.001-1.0 35 UA PH DIPSTICK (test code = BILLY) 5.0-8.0 UA UROBILINIOGEN DIPSTICK (t est code = URO) mg/dL 0.0-0.2 UA NITRITE DIPSTICK (test co de = RANDA) NEGATIVE UA LEUKOCYTE ESTERASE W REFL EX (test code = LEUUR) NEGATIVE UA WBC (test code = WBCU) per HPF 0-5 UA RBC (test code = RBCU) per HPF 0-5 UA EPITHELIAL CELLS (test co de = EPIU) per HPF Few UA BACTERIA (test code = BACU) per HPF NONE Urine Source? Clean CatchDRUGS OF ABUSE SCREEN [id number] 15:58:00* Test Item Value Reference Range Interpretation Comme nts URN COCAINE (test code = COCAURN) NEGATIVE See_Comment [Automated messa ge] The system which generated this result transmitted reference range: <300 ng/mL. The reference range was not used to interpret this result as normal/abnormal. URN CANNABINOIDS (test code = CANNABURN) NEGATIVE See_Comment [Automated mes jv] The system which generated this result transmitted reference range: <50 ng/mL. The reference range was not used to interpret this result as normal/abnormal. URN AMPHETAMINE (test code = AMPHETURN) NEGATIVE See_Comment [Automated mes jv] The system which generated this result transmitted reference range: <1000 ng/mL. The reference range was not used to interpret this result as normal/abnormal. URN BARBITURATE (test code = BARBITURN) NEGATIVE See_Comment [Automated mes jv] The system which generated this result transmitted reference range: <200 ng/mL. The reference range was not used to interpret this result as normal/abnormal. URN BENZODIAZEPINE (test code = BENZOURN) NEGATIVE See_Comment [Automated mess age] The system which generated this result transmitted reference range: <200 ng/mL. The reference range was not used to interpret this result as normal/abnormal. URN OPIATES (test code = OPIATURN) NEGATIVE See_Comment [Automated messa ge] The system which generated this result transmitted reference range: <300 ng/mL. The reference range was not used to interpret this result as normal/abnormal. URN PHENCYCLIDINE (PCP) (test code = PHENCURN) NEGATIVE See_Comment [Automate d message] The system which generated this result transmitted reference range: <25 ng/mL. The reference range was not used to interpret this result as normal/abnormal. URN METHADONE (test code = METHAURN) NEGATIVE See_Comment [Automated messa ge] The system which generated this result transmitted reference range: <300 ng/mL. The reference range was not used to interpret this result as normal/abnormal. Urine Source? Clean Catch Notes Date/Time Note Provider Source 2023-09-26 03:40:45 nRiKD6FQ7MhzvyHD8sCzNh/9fBVrHsptxobHD71 F+yVsMrUqeLieyENHODroZNp+1677-53-57I55: 40:45 [facility] transporting pt to [facility]. Aox4, rr even and unlabored on ra, skin warm and dry. No IV access. Ambulatory with [place] [address]-4Jzptiiqca department RfsnIV8145-50-10Z27:43:11Emergency department NoteTXT1.2.840.305322.1.13.104.2.7.2.72 7879|[id number] for patient wriw41663-2AssqFRAXOHGLAVKTbiudmwrp C-CDA narrative [id number] Leon RN[address] Zt[id number] XEEDFVUVHPOARCEODUP4221-71-82T63:43:111 .2.840.658251.1.72.3.15|1.2.840.110430. 1.13.104.2.7.2.727879_[id number] Pepe Leon RN [facility] 2023-09-26 03:05:00 x+v4rF7yUcDy/w+g7/rHF7eTt3aJB+H6MWydIvH /gNYY0DEsha7dvRDfjwteYshF5856-89-26P14: 05:00 Per [facility], [place] route 466[address]-3Wpmkvxbpn department TsgzUU0619-86-22R67:23:24[facility] NoteTXT1.2.840.830879.1.13.104.2.7.2.72 7879|[id number] for patient idfu51668-5VneeAWENHNVWCJCOshpxhmay C-CDA narrative [id number] Sethi [facility] [address] Yo[id number] SQCMQQWVWRINNDKIHFT0721-31-89V04:23:241 .2.840.065494.1.72.3.15|1.2.840.666214. 1.13.104.2.7.2.727879_[id number] Nicky Sethi RN [facility] 2023-09-25 23:12:36 kKL3NhZKoZYFw0wrO9SUlSAcyYFsFHWLbDePWgF /QVycWqLfRT0JjAEcSBiWNXSs4874-97-49L08: 12:36 Images from the original note were not included.[facility] Case Note09/25/2023 11:12 PMSigned MOT faxed to [facility] SYLVIE Pickett notified of MONICA FoxSocynthia [facility] Office [email or web address] department EpbbLV1215-87-43I57:13:03[facility] NoteTXT1.2.840.529042.1.13.104.2.7.2.72 7879|[id number] for patient xvuq97152-7Edgaarfei department NoteLNNARRATIVEFormatted C-CDA narrative [id number] Howard [address] Kl[id number] PKJHUEQXQKGHWXJOWWG3770-32-02X30:13:031 .2.840.108974.1.72.3.15|1.2.840.440113. 1.13.104.2.7.2.727879_[id number] Mina ANDERSON [facility] 2023-09-25 23:00:04 90y2uGEvrOblufAFyd0yZvjdjDSOlPkIR7xRiFm +jIg1f0BhmUWO+YV9fkjFfqvm5946-02-66G69: 00:04 Images from the original note were not included.[facility] Case Note09/25/2023 11:00 PMGEMS Updated ETA:3 HoursDeGris Segal [facility] Office [email or web address] [id number] department FitmJW0924-88-91Y62:00:21[facility] NoteTXT1.2.840.920523.1.13.104.2.7.2.72 7879|[id number] for patient mebs42955-1Pfxggqftn department NoteLNNARRATIVEFormatted C-CDA narrative text[address]Sx[id number] HMVSQKEMASKRWZGLRWC7194-99-36O76:00:211 .2.840.884976.1.72.3.15|1.2.840.795331. 1.13.104.2.7.2.727879_[id number] [facility] 2023-09-25 22:56:13 hE39VNWzsBdIj1e2hJAS5R6HXBf/kNamJC+e51Z 0Nxt5Q9kRvTP0GMFl5HpSML151270-61-55W89: 56:13 Images from the original note were not included.[facility] Case Note:09/25/2023 10:56 PMTransportation arranged via [facility] .Patient name: Luis Enrique AndersonRN: [id number] date: 09/25/2023[facility] ETA: TBDAMBULANCE SCHEDULING FORMYour current date/time is: September 25, 2023 10:50 PMPlease choose the facility where the patient is currently located: [facility] what date does the patient need to be picked up? 4Does the patient need to be picked up as soon as possible? YesWhat time would you like the patient to be picked up? ASAPPatient's Name: Luis Enrique Martinez of : 1985Patient's Weight: 218 lb (98.9 kg)Room Number: 121/121Does the patient have an appointment time that must be met? NoWhat time is their appointment? N/ADoes the patient have any special needs?(check all that apply) N/AIs the patient alert and oriented? YesDoes the patient have any isolation precautions? YesPlease list the precaution(s). (VRE, MRSA, TB, etc.) Extended RespiratoryWho may we contact to follow up on this request? Christa Locke call-back number with extension, please: [phone] is the discharge diagnosis? R45.851 Suicidal ideation (primary encounter diagnosis)[facility] the [facility] 6City / State / Zip: [place], [place] [address]Xow phone number at this location: payment DetailsPlease select your form of payment: Contract-[facility] SERVICESPhysician Certification StatementSection I - General InformationWhat is the patient's contract number?Patient's WAN (pre-authorization number)?Transport Date: 09/25/2023Origin: [facility] 121Destination: [place] [address]Eawwhlm appropriate facility: YesIf no, why is transport to more distant facility required?N/AN/AIf hosp-hosp transfer, describe services needed at 2nd facility not available at 1st facility Higher level of service: Inpt psychiatric servicesIf hospice pt, is this transport related to pt's terminal illness? N/ADescribe:N/AN/ASection II - Medical Necessity QuestionnaireNon-Emergency Ambulance ServiceAmbulance services are covered in the absence of an emergency condition in either of the two general categories of circumstances that follow:The patient being transported has, at the time of ground transport, a condition such that all other methods of ground transportation (e.g., taxi, private automobile, wheelchair van or other vehicle) are contraindicated. In this circumstance, contraindicated means that the patient cannot be transported by any other means from the origin to the destination without endangering the individual s health. All statements about the patient s medical condition must be validated in the documentation using contemporaneous objective observations and findings.Describe the Medical Condition (physical or mental) of the patient at the time of ambulance transport that requires the patient to be transported in an ambulance and why transport by other means is contraindicated by the patient s condition:N/AORThe patient is before, during and after transportation, bed-confined. Bed-confined means the patient must meet all of the following three criteria:Unable to get up from bed without assistance.Unable to ambulate.Unable to sit in a chair (including a wheelchair).Is this patient "bed confined" as defined above? NoAs stated in the bullet above, statements about the patient s bed-bound status must be validated in the record with contemporaneous objective observations and findings as to the patient s functional physical and/or mental limitations that have rendered him bed-bound.Can this patient safely be transported by car or wheelchair van (i.e., seated during transport, without a medical laboratory specialist or monitoring?) NoIn addition to completing questions 1-3 above, please select any of the following conditions that apply*:*Note: supporting documentation for any selections must be maintained in the patient s medical recordsDanger to self/otherSection III - General InformationI certify that the above information is true and correct based on my evaluation of this patient, and represent that the patient requires transport by ambulance and that other forms of transport are contraindicated. I understand that this information will be used by the Centers for Medicare and Medicaid Services (CMS) to support the determination of medical necessity for ambulance services, and I represent that I have personal knowledge of the patient s condition at the time of transport.Is patient physically or mentally incapable of signing the ambulance service s claim: NoDischarge Lan Specialist Signature: Electronically signed by MONICA Locke 09/25/2023 10:53 PMIs there anything else you'd like us to know concerning this patient?N/ADeMONICA SegalSocial [facility] Office [email or web address] department EhidDN9451-39-95G04:57:02[facility] department NoteTXT1.2.840.493418.1.13.104.2.7.2.72 7879|[id number] for patient bibn21159-9Gotzcpdhp department NoteLNNARRATIVEFormatted C-CDA narrative [address] Qn[id number] QCAXSVJJFAWSPVFBQRW5523-61-60G01:57:021 .2.840.160085.1.72.3.15|1.2.840.910967. 1.13.104.2.7.2.727879_[id number] [facility] 2023-09-25 22:33:20 o4E50JaIpQlM7Iz5vZdLQE02tU/MksguukPzyAp dwPObp64y61db/keGorTbV3v+5688-99-82R07: 33:20 Nurse to nurse given to Valeria at [facility]. Pending acceptance 54874-8Nfmntzfss department DageBN9374-84-66H67:33:54[facility] department NoteTXT1.2.840.182074.1.13.104.2.7.2.72 7879|[id number] for patient wnnx35134-0IqbgNEQLIPTBOVXQkszebvlc C-CDA narrative FitBionic[id number] XPUERVEXTYQNEHNPMCS0276-80-69V66:33:541 .2.840.418699.1.72.3.15|1.2.840.684142. 1.13.104.2.7.2.727879_[id number] [facility] 2023-09-25 19:41:34 AJDCHMDjcmvbiZfrfPHFxz/QjXBfoCoz1ZZTAD0 tCYRjQGX9kotQTF1MNnqGkFnq5641-59-48L60: 41:34 Problem: Suicide, Risk ofGoal: Absence of self-harmOutcome: Progressing as expected 21436-8Jyqs of care jnoqVM1382-45-84U92:41:38Plan of care noteTXT1.2.840.067166.1.13.104.2.7.2.72 7879|[id number] for patient gfvl04086-5BzhlGCBGJCEVHZEWucjbxmxs C-CDA narrative [id number] GLHQHCAXFINTCUEQZMA3426-21-29R01:41:381 .2.840.998614.1.72.3.15|1.2.840.079946. 1.13.104.2.7.2.727879_[id number] [facility] 2023-09-25 18:53:39 81kiajxI4boxathHDIVuBH3ugq8Z16DGWjNAxaR tS1mGCAspbCG6xuC0/O5IJKpA6106-57-05G67: 53:39 Nurse ReportReport given to SYLVIE Victoria. Chief complaint, assessment findings, infusion verify and orders reviewed. Plan of care discussed at bedside with patient and both nurses. Patient/family [place] [address]-1Snwralrei department JmliAT9271-09-72O89:53:48[facility] department NoteTXT1.2.840.679820.1.13.104.2.7.2.72 7879|[id number] for patient lbln18888-6KicsMTFSAREKRHEGrrlioxyx C-CDA narrative olwg568860013Frcrer M Martin RN[address] AtjjZtpsxagldQiiavafzqWIJI1036416609TPV PQSSLYBKNWRIPOLUNSN6499-72-62C51:53:481 .2.840.857866.1.72.3.15|1.2.840.875562. 1.13.104.2.7.2.727879_[id number] Mali Adler RN [facility] 2023-09-25 11:36:33 FtNtI7zp1UnsYrkUaEFjPw3tanuGBEt+/[facility] wiGXWsfhNmzM/fPQpnAOI2WKB7680-96-23U53: 36:33 Pt returned to room [address] [place] [address] PD explaining to pt need for staying in pt room until placement can be found. 73763-0Bjwvyiypj department NvoaMZ6963-35-47X21:37:18[facility] department NoteTXT1.2.840.296958.1.13.104.2.7.2.72 7879|[id number] for patient oflx53140-2RpuzOMNWKLRIYGITntgxeuda C-CDA narrative cjgv511006821Uqawq Anibal Ashwin RN[id number] DVTMYLXSYZCKCGVFTKF6531-08-94Z82:37:181 .2.840.838471.1.72.3.15|1.2.840.353216. 1.13.104.2.7.2.727879_[id number] Carmenza Anibal Ashwin RN [facility] 2023-09-25 11:35:34 jfLFD6gJ3xqzQF4hF9DETW1iQVGJjb49D1P7Lyv mJeXf7Vgo8LqrH2B3BXJoanTV0634-17-29H90: 35:34 Pt walked out of room into [facility] and was non verbal when advised to return to room. Due to safety concerns I was advised to not follow patient. Pt was returned to [place] by [place] police. [address]-1Tjpggjipm department DuedVZ4098-30-07H46:39:46[facility] department NoteTXT1.2.840.010771.1.13.104.2.7.2.72 7879|[id number] for patient hqwx80843-6Wwndpitei department NoteLNNARRATIVEFormatted C-CDA narrative xiwu580253085EdkqwYamel Vela[address]TXTX[address]5577555USU MPRLWFIIXQWROEGPGDB8485-46-82V44:39:461 .2.840.690520.1.72.3.15|1.2.840.270454. 1.13.104.2.7.2.727879_[id number] Yamel Fernández [facility] 2023-09-25 11:33:00 DfS5GPP17C6IPv5zX41yc5XeIGnvfhw+rgJmdLK Pk7cGEcyjrUDywkZUhyysGL3F0403-90-99X05: 33:00 Pt ambulatory out of ED room at this time, not responding to verbal redirection. Pt. Refuses to stay in ED room per [facility] policy/procedures. [place] PD aware of difficulties with pt, not able to help due to no FILOMENA in place. [address]1696-1Qqgpdrrsm department KznqTH3086-17-39N57:36:56[facility] department NoteTXT1.2.840.818216.1.13.104.2.7.2.72 7879|[id number] for patient oqnn41010-9YvbeYLHCJDINRUGJcjenuyvk C-CDA narrative text[address] UiuwZkhdwsfsiVnjpjkfkdURGU7173163205BOR YGXBBGSPAPSKPHYPPHY5162-22-50C81:36:561 .2.840.637645.1.72.3.15|1.2.840.965180. 1.13.104.2.7.2.727879_[id number] [facility] 2023-09-25 09:50:55 T3PfLmv8yBYKhAdtn6jbYxbHEhdoCUOTCen3qle uhhctDzyBhe9CIyPC9AMbcnVy4074-58-23A63: 50:55 Psychiatric Re-Evaluation NoteEmergency DepartmentDate: September 25, 2023I have reassessed the patient on this shift.The patient states or demonstrates that they are still having:Suicidal ideation or thoughts: YesHomicidal ideation or thoughts: NoAuditory and/or visual hallucinations: NoPsychosis, paranoia, or other mental instability impairing normal decision making: NoSuggested risk level of [place]: LowOn reassessment, the patient should still be transferred for psychiatric assessment and care: YesIf no, explain:The patient remains medically stable for psychiatric transfer. Yes If no, explain:The patient remains {: Voluntary for psychiatric treatment.The patient is being treated for the following medical conditions:Other nicotine withdrawalThe patient has been given or is being treated with the following medications:Orders Placed This EncounterMedicationsnicotine (NICODERM) 21 mg/24 hr patch 1 PatchhydrOXYzine (ATARAX) tablet 50 mgLynda MD Geovanny 23254-9Ydzejdeil department JphaCO8016-02-62K43:52:15[facility] department NoteTXT1.2.840.036928.1.13.104.2.7.2.72 7879|[id number] for patient ctev70098-4LxtiRLYNWCVSQYIMdrxybfar C-CDA narrative textEMCARE EMERGENCY PHYSICIAN STAFFEMCARE EMERGENCY PHYSICIAN STAFF[address] UowiEjourcclqJaapfwcstZTXF1801967856KGW KVOKMAEGTGQYFLMFEEE5773-46-73K97:52:151 .2.840.377714.1.72.3.15|1.2.840.246899. 1.13.104.2.7.2.727879_[id number] [facility] 2023-09-25 07:09:37 n7D5gOWX0S2kjQ82R97L4LeUN8pbmPUJnVJtnCM sD3QlNcyvfCFHbN1IqIOuh6Jb0611-57-96R03: 09:37 Patient and family members educated on emergency department behavioral process and precautions. Educated on need for direct observation, removal of belongings, and clearing of room for patient and staff safety. Patient and family given community resources for outpatient treatment and care. 54431-3Hiym of care imdhVR4255-89-43P23:09:44Plan of care noteTXT1.2.840.104128.1.13.104.2.7.2.72 7879|[id number] for patient ooqa65912-9RhexOOYUGOPQUXIFxaifqvxg C-CDA narrative text[address]TXTX7755577555USU VVZTWDAHBRSUYVGZQWA8362-59-53W99:09:441 .2.840.078563.1.72.3.15|1.2.840.753253. 1.13.104.2.7.2.727879_[id number] [facility] 2023-09-25 06:58:37 TZ7XIuMFHD1rkvpdbeK00FjDzMj4B4x7nBipISa elRoFczJQt6WVdFXueIVQaSha6011-59-81E75: 58:37 [place] [address]-2Chmobkvto department PzauZY9379-90-89W14:58:44[facility] department NoteTXT1.2.840.468538.1.13.104.2.7.2.72 7879|[id number] for patient ufqs34791-9YroqLIGMPGYPLBXDdxvnkzzp C-CDA narrative rgtm720423910Ysphnknikolas De Jesus RNUT[address]TXTX7755577555USU LIXBLFXYBDWODBSNULS0328-81-93R49:58:441 .2.840.641239.1.72.3.15|1.2.840.100465. 1.13.104.2.7.2.727879_[id number] Mingo De Jesus RN [facility] 2023-09-25 06:52:00 N3YHmXktTz0fM+lF6ZPKGgEVYP257f8EF5SL6OM uK4B0lmfzg0a9b+3ZYWSKNkVP9144-56-94D01: 52:00 [place] June smalls MD states patient medically cleared, stated they will send out a screener. 81999-7Qexudvuwu department SwcaBT9733-95-51Q89:56:29Emergency department NoteTXT1.2.840.871895.1.13.104.2.7.2.72 7879|[id number] for patient jept50469-5XjkvDEASRWDZUPMMifjnbhow C-CDA narrative text[address] BpbaOebhhnpgySwhmkemptLGZE0135966751JKM VHFOHFZDHVAFXQCESFS8718-49-14U71:56:291 .2.840.485432.1.72.3.15|1.2.840.617197. 1.13.104.2.7.2.727879_[id number] [facility] 2023-09-25 06:15:00 q41WKXzuHqB+2jH+mnmpf87aU7RuUTeLRM6MDgc eGnM127BQBeLnKCXfughlX/yt9312-51-57S46: 15:00 Patient with plant safety engineer within direct view one on one basis. Patient continues to be cooperative with care. No safety needs identified at this time. Patient remains in ED stretcher, resting and calm. Patient remains in stringless paper scrubs. NAD noted. 67289-1Ygbzznbya department LipdYA0307-31-02O29:20:20[facility] department NoteTXT1.2.840.689830.1.13.104.2.7.2.72 7879|[id number] for patient mcsw29611-2CzraGHPIJMHVTUWLbzwkysix C-CDA narrative text[address]TXTX7755577555USU UBEELZFHQWLPPNKCHAX8158-98-52B41:20:201 .2.840.249955.1.72.3.15|1.2.840.378716. 1.13.104.2.7.2.727879_[id number] [facility] 2023-09-25 05:02:39 XytHmWxoLMmyd8g8vPkS4Uyfrb0igWNhYbU5cPt grYjmsHQ2zwQK2gBinRVCIx2s4942-28-08F12: 02:39 PT HAS ONE LG BLACK DUFFLE BAG AND ONE BLACK BOOK BAG IN DECON AREAPT HAS PERSONAL BELONGINGS BAG IN ED SAFE 50673-2Kctinnrhb department CnnfTH2201-81-48L45:03:54[facility] NoteTXT1.2.840.736248.1.13.104.2.7.2.72 7879|[id number] for patient bfcv33734-6BnjfKANNDAYRKRLBpysedivq C-CDA narrative rhga197932206Ysemw A Jones[address]TXTX[address]5577555USU YJIMSWVUHICWOAKIANU5258-31-56L36:03:541 .2.840.811214.1.72.3.15|1.2.840.717834. 1.13.104.2.7.2.727879_[id number] Serena Deleon [facility] 2023-09-25 04:56:38 cvPxOVfEMMx9jyDhy2cOo2Siu3EkfJaOzwmb/Tq iu9mpd1CdHK0Dm0LSQbiSiC3m9485-51-73U46: 56:38 Problem: Suicide, Risk ofGoal: Absence of self-harmOutcome: Progressing as expected 08364-4Gsai of care wmajRQ1627-73-65T47:57:01Plan of care noteTXT1.2.840.799409.1.13.104.2.7.2.72 7879|[id number] for patient dwdf96396-2GfkpAQXHCQQXTUDZxnhdyskk C-CDA narrative text[address] CdiaDnvxfoepdIzduwyijpLMWE2842737819BXP OIGWDWNWXMPGDRRNGRB1780-00-30C57:57:011 .2.840.401521.1.72.3.15|1.2.840.611058. 1.13.104.2.7.2.727879_[id number] [facility] 2023-09-25 04:32:54 o+PUeNMILN+5kbXb2diw3iQVwSHesIqJ08xYP90 ynwrtyLA+Ea6EyG3vo3xCwWK50868-53-14Z60: 32:54 Suicide Risk - Assessment and PlanColumbia:1) Have you wished you were or could go to sleep and not wake up?: No2) Have you had thoughts of killing yourself?: Yes3) Have you been thinking about how you might kill yourself?: No4) Suicidal ideation with some intent?: No5) Have you worked out the details of the plan AND intend to follow through?: No6) Suicidal Behavior or preparation for suicide?: NoColumbia Score:Suggested risk level: LowSAFE-T:Current and past psychiatric diagnoses: NonePresenting symptoms: NoneFamily history: Other (see comments)Activating Events: Other (see comments)Precipitants / stressors: None identifiedProtective factors: None identifiedAccess to Lethal Means:Does patient have access to a gun or access to guns?: NoSpecific Questions of Thoughts, Plans, Intent:Frequency- how many times have you had these thought?: Less than once a week2.Duration - When you have the thoughts, how long do they last?: Fleeting, a few seconds or minutes3.Controllability - could/can you stop thinking about killing yourself or wanting to if you want to? "Is it easy, a little hard, very hard, or are you unable?": Easily able to control thoughts"4.Deterrents - are there things, anyone or anything (family, mandaeism, pain of ) that have stopped you from wanting to or acting on thoughts of committing suicide?: Does not applyReasons for ideation - What are the reasons you have for wanting to or kill yourself? Was it to end pain, stop the way you are feeling, or to get attention, or get revenge and reaction from others?: Equally to get attention, revenge or a reaction from others and to end/stop the painBehavior Assessment:1.Were there preparatory acts like buying pills, guns, giving things away, or writing suicide note?: No2.Was an attempt aborted or self - interrupted?: No3.Was an attempt interrupted by someone else?: No4.Was there an actual attempt?: No5.Is there non suicidal self injury? Cutting, biting, skin picking: No7.Is there homicidal ideation: if so, describe: NoStratification:High Suicide Risk Moderate Suicide Risk Low Suicide Risk?? Suicidal ideation with intent or intent with plan in past month (C-SSRS Suicidal Ideation #4 or #5)Or?? Suicidal behavior within past 3 months (C-SSRS Suicidal Behavior) ?? Suicidal ideation with method, WITHOUT plan, intent or behaviorin past month (C-SSRS Suicidal Ideation #3)Or?? Suicidal behavior more than 3 months ago (C-SSRS Suicidal Behavior Lifetime)Or?? Multiple risk factors and few protective factors ?? Wish to or Suicidal Ideation WITHOUT method, intent, plan or behavior (C-SSRS Suicidal Ideation #1 or #2)Or?? Modifiable risk factors and strong protective factorsOr? No reported history of Suicidal Ideation or BehaviorLocation / Risk:Outpatient / Low:Wish to or suicidal ideation without method, intent, plan or behavior and no history of suicidal behavior.a. Consider referral to behavioral health resources.b. Follow-up with Pediatric provider within 2 weeks.c. Consider developing a safety plan. 11722-5Ryprepbacf + Plan cbqjNC1290-64-17T54:33:08Evaluation + Plan noteTXT1.2.840.343071.1.13.104.2.7.2.72 7879|[id number] for patient ellk09559-7CtmhAJPIEMIQXCDRyfuffkbk C-CDA narrative textEM-EMERGENCY MEDICINE STAFFEM-EMERGENCY MEDICINE STAFF[address] ZyxuLklhzcaieWufjlseduKROQ4708490417ALC TZEWRDFOZSKSIIVWPYI7224-41-51R00:33:081 .2.840.185614.1.72.3.15|1.2.840.436540. 1.13.104.2.7.2.727879_[id number] EM-EMERGENCY MEDICINE STAFF [facility] 2023-09-25 04:25:34 dYI3ldSJRLy2WLUNanr/3bqZwDsiezZ77AImBU3 6YhK17975OtXye3rVAHbp3TE73567-64-09O84: 25:34 Patient encouraged to use the restroom, denies the need to go at this time, informed on the need for a urine sample. 36353-6Kobrmspro department OherTA6645-68-18W59:26:02[facility] NoteTXT1.2.840.044450.1.13.104.2.7.2.72 7879|[id number] for patient poym99869-7LposWVLDWWTNDYAJkczteyvj C-CDA narrative text[address]TXTX7755577555USU GMJCXHOJMYDMHEDELID8704-92-38X59:26:021 .2.840.095894.1.72.3.15|1.2.840.360110. 1.13.104.2.7.2.727879_[id number] [facility] 2023-09-25 04:15:00 z5M4k8z7kJbe1WytiwgsocVVFdWSd0BsrJPLTpl UfHBz2VS6Mu/U+2QBAQPvJEAE0266-37-45O99: 15:00 Patient educated on emergency department behavioral process and precautions. Educated on need for direct observation, removal of belongings, and clearing of room for patient and staff safety. Patient given community resources for outpatient treatment and care. Patient verbalized understanding.Patient with plant safety engineer within direct view one on one basis. Patient continues to be cooperative with care. No safety needs identified at this time. Patient remains in ED stretcher, sitting upright. Patient placed in string less paper scrubs. 79199-5Nvbhjjzwk department VbflHO5914-74-74D38:38:15[facility] NoteTXT1.2.840.965706.1.13.104.2.7.2.72 7879|[id number] for patient dhkg96431-9LehiYIBLJZYUYBFTtunrvzjl C-CDA narrative [address]TXTX7755577555USU CAVDVSRJVJKRHEKGFCJ7763-75-73J18:38:151 .2.840.798714.1.72.3.15|1.2.840.411890. 1.13.104.2.7.2.727879_[id number] [facility] 2023-09-25 04:04:40 9dtW6CtO1q77qLkgRad81lxB/dijwLkCNs2u0SG 6KkLwplhDTOxmiOenaKKRvpfA3407-15-31S87: 04:40 Luis Enrique Marshall is a 37 year old female presenting to the ED via EMS with cc of wanting to self harm for the last 3 days. Patient denies any SI plans, reports being homeless, and denies SOB, pain, or physical complaints. Patient denies hx of depression. Patient reports previously wanting to self harm, denies HI. Patient reports no plan. 05903-3Shnvtxpzr department TbupEB7643-29-96O28:07:35Emergency department NoteTXT1.2.840.896391.1.13.104.2.7.2.72 7879|[id number] for patient ogjd91940-6KxyxFGRKFLCHJUHLbcdkwemb C-CDA narrative text[address] AmhhUfskfosnpXzfllvfjjJQIN8026657668YVV LBHZLTVSNFUFQLXGVLS1170-42-47Z56:07:351 .2.840.748531.1.72.3.15|1.2.840.619343. 1.13.104.2.7.2.727879_[id number] [facility] 2023-09-25 03:55:53 g0wJyfYJT1ccGuOGh6DOrhhYIOLwfTHP4FAkl2J bX21Hm49b0jvqjwb6ApixXCy48247-39-06E34: 55:53 Luis Enrique Marshall is a 37 year old female who reports to the ER with c/o SI. [facility] reports patient had someone call at a fast food restaurant. Pt originally c/o abd pain but under further investigation, pt states"I am homeless and I have no where to go". Pt then told [facility] she is suicidal to "come off the streets".Pt denies PMH. 68366-1Sfvqjtddi department Triage tkwlUP0733-69-63G74:57:00[facility] Triage noteTXT1.2.840.350644.1.13.104.2.7.2.72 7879|[id number] for patient ynfu75224-2Vfdljlyjt department NoteLNNARRATIVEFormatted C-CDA narrative psnx405575383Fudatm Norris RNUT[address] IislHgicptwnkQgaqrtpqzZSVK4384992287LNH XVIYKHRRSHDQIIPGRNJ8072-72-85F30:57:001 .2.840.213714.1.72.3.15|1.2.840.119975. 1.13.104.2.7.2.727879_[id number] Miranda Mccallum RN [facility] 2023-04-17 16:10:00 A18464683481TGsiQG5hEE2+j30L5Lto68ScJSg 25PH4KiDQnw7OKqZxISXJqRzTbDOhdhn+o9Og20 23-04-17T16:10:00 [facility] ([facility] PROVID[facility] REPORTREPORT#:[id number] REPORT STATUS: SignedDATE:04/17/23 TIME: 1609 PATIENT: LUIS ENRIQUE MARSHALL UNIT #: [id number]#: [id number] ROOM/BED:AGE: 37 SEX: F PCP PHYS: No Primary or Family PhysicianSERVICE AUTHOR: Ian Llanes MD * ALL edits or amendments must be made on the electronic/computer document * See AddendumHPI-General Illness Free Text HPI NotesFree Text HPI NotesCase of a 37-year-old female with reported past medical history of major depression (says that she is currently taking no medications), chronic back painwho comes to the ER with complaint of depression. Patient says that she has beenfeeling very depressed, emotional and is feeling out of options. Patient denies suicidal ideas, homicidal ideas, any type of hallucinations at this moment. Patient says she feels desperate and doesn't know what to do. Says that she feels out of control. Patient once psychiatric evaluation. GeneralConfirmed Patient YesInitial Greet Date/Time 04/17/23 1443 PresentationChief Complaint DepressionHx Obtained From Patient, EMS Review of Systems ROS StatementsAll systems rev neg except as marked. Review of SystemsPsychiatricReports: Depression. Denies: Agitation, Confusion, Delusional, Hallucinations, auditory, Hallucinations, visual, Homicidal ideation, Suicidal ideation. Free Text ROS NotesFree Text ROS NotesConstitutional Denies: Chills, Fatigue, Fever, Malaise, Weakness - generalized. Eyes Denies: Blurred bilat, Discharge bilat, Eye pain bilat, Redness bilat, Swelling bilat. Ears/Nose/Throat Denies:Earache bilat, Ear drainage bilat, Hearing loss bilat, Mouth pain, Nasal congestion, Nose bleeding, Sinus problem, Sore throat. Respiratory Denies: Cough, non-productive, Cough, productive, Shortness of breath. Cardiovascular Denies: Chest pain, Edema, Palpitations, Syncope. GI Denies: Abdominal pain, Diarrhea, Nausea, Vomiting. Female Denies: Dysuria, Flank pain, Urinary frequency, Urinary urgency, Urination decreased, Urination increased, Vaginal bleeding - abnl, Vaginal discharge. Musculoskeletal Denies: Extremity pain, Extremity swelling, Joint pain, Joint swelling, Neck pain. Hematologic Denies: Adenopathy. Skin Denies: Diaphoresis, Erythema, Itching, Jaundice, Rash, Swelling. Neurologic Denies: Change LOC, Confusion, Dizziness, Focal weakness, Headache, Lightheaded, Problem walking, Seizure, Slurred speech, Syncope. Past Medical History - AdultStated Complaint BACK PAIN, DEPRESSION, NEEDS PSYCHAllergiesCoded Allergies:No Known Allergies (04/17/23) Home MedicationsActive ScriptsIBUPROFEN (MOTRIN) 600 MG PO TID PRN PRN PAIN 5 Days #15 TABS Prov: 09/20/22IBUPROFEN (MOTRIN) 600 MG PO Q8H PRN PRN PAIN/FEVER IBUPROFEN (MOTRIN) 600 MG PO Q8H PRN PRN PAIN/FEVER #20 TABS Prov: 09/21/22ONDANSETRON ODT (ZOFRAN ODT) 4 MG PO Q6H PRN PRN NAUSEA/VOMITING ONDANSETRON ODT (ZOFRAN ODT) 4 MG PO Q6H PRN PRN NAUSEA/VOMITING #15 TABS Prov: 09/21/22diphenhydrAMINE (BENADRYL) 50 MG PO Q6H PRN PRN HEADACHE diphenhydrAMINE (BENADRYL) 50 MG PO Q6H PRN PRN HEADACHE #30 CAPS Prov: 09/21/22 Additional Medical HistoryBehavioral healthSmoking status for patients 13 years old or older: Unknown,if ever smoked Physical Exam Vital SignsVital SignsFirst Documented: Result Date Time Pulse Ox 99 04/17 1439 B/P 116/80 04/17 1439 B/P Mean 92 04/17 1439 O2 Delivery Room air 04/17 1439 Temp 36.7 04/17 1439 Pulse 92 04/17 1439 Resp 16 04/17 1439 Last Documented: Result Date Time Pulse Ox 100 04/17 1940 B/P 127/78 04/17 1940 B/P Mean 94.6 04/17 1940 O2 Delivery Room air 04/17 1940 Temp 37.2 04/17 1940 Pulse 86 04/17 1940 Resp 18 04/17 1940 Review of Vital Signs Reviewed Free Text PE NotesFree Text PE NotesGeneral/Const Awake, Alert, No acute distress, Well appearing, Cooperative, Not toxic appearingMS Head NormocephalicEyes PERRL, EOMIEars/Nose/Throat Airway patent, Mucous membranes moist, Pharynx NLMS Neck Supple, No meningismus, Full range of motion, No adenopathyResp/Chest Breath sounds NL, Breath sounds = bilat, No respiratory distressCardiovascular Heart rate NL, Regular rhythm, Heart sounds NL, Cap refill not delayed, Peripheral circulation NLAbdomen/GI Soft, Non-tender, BS normoactive, No distentionMS Back Inspection NLLymphatic No gross adenopathyMS Upper Extrem Inspection NL, Full range of motion, No swellingMS Lower Extrem Inspection NL, Full range of motion, No swellingSkin Color NL, No rash, Warm, DryNeurologic Oriented X3, Speech NL, No motor deficits, No sensory deficitsPsychiatric Depressed, not suicidal, not homicidal, no hallucinations Interpretation Diagnostics Lab Results InterpretationResultsLaboratory Tests 04/17/23 1530:[Embedded Image Not Available]Laboratory Tests: 04/17 04/17 1743 1530 Serology SARS-CoV-2 Ag (Rapid) (NEGATIVE) NEGATIVE Toxicology Urine Opiates Screen (<300 ng/mL) NEGATIVE Urine Methadone Screen (<300 ng/mL) NEGATIVE Urine Barbiturates (<200 ng/mL) NEGATIVE Ur Phencyclidine Scrn (<25 ng/mL) NEGATIVE Ur Amphetamines Screen (<1000 ng/mL) NEGATIVE U Benzodiazepines Scrn (<200 ng/mL) NEGATIVE Urine Cocaine Screen (<300 ng/mL) NEGATIVE Urine Cannabinoids (<50 ng/mL) NEGATIVE 04/17 1530 Chemistry Sodium (136 - 145 mmol/L) 138 Potassium (3.5 - 5.1 mmol/L) 3.7 Chloride (98 - 107 mmol/L) 109.0 H Carbon Dioxide (21 - 32 mmol/L) 21.0 Anion Gap (10 - 20) 11.7 BUN (7 - 18 mg/dL) < 5 L Creatinine (0.55 - 1.02 mg/dL) 0.70 Glomerular Filtr Rate (>=60 mL/min) > 60 BUN/Creatinine Ratio (10 - 20) 6.8 L Glucose (74 - 106 mg/dL) 72 L Calcium (8.5 - 10.1 mg/dL) 8.9 Total Bilirubin (0.0 - 1.0 mg/dL) 0.40 Direct Bilirubin (0.0 - 0.20 mg/dL) 0.10 AST (15 - 37 IUnit/L) 30 ALT (12 - 78 IUnit/L) 27 Total Alk Phosphatase (45 - 117 IUnit/L) 51 Total Protein (6.4 - 8.2 gram/dL) 7.7 Albumin (3.4 - 5.0 g/dL) 3.8 Globulin (2.7 - 4.2 gram/dL) 3.9 Albumin/Globulin Ratio (0.75 - 1.50) 1.0 Hematology WBC (4.5 - 12.5 K/mm3) 6.9 RBC (3.7 - 5.2 mill/mm3) 4.50 Hgb (11.5 - 15.5 gram/dL) 15.5 Hct (36.0 - 46.0 %) 46.1 H MCV (80 - 98 fL) 102.4 H MCH (27.0 - 33.0 picogram) 34.4 H MCHC (33.0 - 36.0 gram/dL) 33.6 RDW (11.6 - 16.2 %) 12.6 Plt Count (150 - 450 K/mm3) 228 MPV (6.7 - 11.0 fL) 10.0 Toxicology Ethyl Alcohol (0.0 - 3.0 mg/dL) 26 H Urines Urine Color (YELLOW) Light-Yellow Urine Appearance (CLEAR) Cloudy H Urine pH (5.0 - 8.0) 5.5 Ur Specific [place] (1.001 - 1.035) 1.008 Urine Protein (NEGATIVE mg/dL) NEGATIVE Urine Glucose (UA) (NEGATIVE mg/dL) NEGATIVE Urine Ketones (NEGATIVE mg/dL) NEGATIVE Urine Blood (NEGATIVE mg/dL) Negative Urine Nitrite (NEGATIVE) NEGATIVE Urine Bilirubin (NEGATIVE mg/dL) NEGATIVE Urine Urobilinogen (NEGATIVE mg/dL) Normal Ur Leukocyte Esterase (NEGATIVE Alicia/uL) 25 Alicia/uL (Trace) H Urine RBC (0 - 5 #/HPF) 0-2 Urine WBC (0 - 5 per HPF) 0-5 Ur Epithelial Cells (FEW per HPF) MOD Urine Bacteria (NONE #/HPF) NONE SEEN Urine Mucus (FEW #/LPF) FEW Urine HCG, Qual NEGATIVE ECG #1 InterpretationText/Dict NoteNormal sinus rhythm at 91 bpm, no axis deviation, no ST elevation, no acute ischemic changes, mild QT prolongationDate 04/17/23Time 1609Interpreted by and reviewed by me Re-Evaluation MDM Free Text MDM NotesFree Text MDM NotesPatient with complaint of feeling depressed and out of options. Physical exam isunremarkable. Will request laboratory analysis for adequate medical clearance. Re-Evaluation/Progress #1Text/Dict NotePatient resting on stretcher. Labs show adequate hemoglobin and white blood cellcount, normal renal function without major electrolyte derangements. Toxicology is negative. At this moment there are no signs of severe pathology or complication that would prevent safe transfer for psychiatric evaluation and management. Patient is medically cleared. [facility] contacted and patient pending psychiatric evaluation.Time of Re-Eval 1610Re-Eval Status Improved Re-Evaluation/Progress #2Text/Dict NoteHCAT personal recommended voluntary in patient psychiatric management. Patient stable.Time of Eval 1704Re-Eval Status Improved ED CourseMedication(s) OrderedMedication(s) Ordered:Antihistamine Drugs Sig/Afua Start time Last Medication Dose Route Stop Time Status Admin Diphenhydramine HCl 25 MG Q6H PRN PRN 04/17 1630 r PO 05/17 1629 Autonomic Drugs Sig/Afua Start time Last Medication Dose Route Stop Time Status Admin Albuterol/Ipratropium 3 ML RTQ4H PRN PRN 04/17 1630 r INH 05/17 1629 Nicotine 21 MG Q24H PRN PRN 04/17 1630 CKD TRANSDERM 05/17 1629 Central Nervous System Agents Sig/Afua Start time Last Medication Dose Route Stop Time Status Admin Acetaminophen 650 MG Q6H PRN PRN 04/17 1630 AC PO 05/17 1629 Chlordiazepoxide HCl 50 MG Q6H PRN PRN 04/17 1630 AC PO 05/17 1629 Ibuprofen 600 MG Q6H PRN PRN 04/17 1630 AC PO 05/17 1629 Lorazepam 2 MG Q6H PRN PRN 04/17 1630 AC PO 05/17 1629 Quetiapine Fumarate 50 MG Q4H PRN PRN 04/17 1630 AC PO 05/17 1629 Trazodone HCl 50 MG BEDTIME PRN PRN 04/17 1630 r PO 05/17 1629 Naproxen 500 MG ONCE ONE 04/17 1545 DC 04/17 PO 04/17 1546 1712 Electrolytic, Caloric, And Jaxson Sig/Afua Start time Last Medication Dose Route Stop Time Status Admin Potassium Chloride 40 MEQ Q12H PRN PRN 04/17 1630 AC PO 05/17 1629 Gastrointestinal Drugs Sig/Afua Start time Last Medication Dose Route Stop Time Status Admin Docusate Sodium 100 MG Q12H PRN PRN 04/17 1630 AC PO 05/17 1629 Famotidine 20 MG Q12H PRN PRN 04/17 1630 AC PO 05/17 1629 Ondansetron Base 4 MG Q6H PRN PRN 04/17 1630 r PO 05/17 1629 Patient Discharge Departure Vital Signs/ConditionVital SignsFirst Documented: Result Date Time Pulse Ox 99 04/17 143 B/P 116/80 04/17 143 B/P Mean 92 04/17 143 O2 Delivery Room air 04/17 1439 Temp 36.7 04/17 1439 Pulse 92 04/17 143 Resp 16 04/17 1439 Last Documented: Result Date Time Pulse Ox 100 04/17 1940 B/P 127/78 04/17 1940 B/P Mean 94.6 04/17 1940 O2 Delivery Room air 04/17 1940 Temp 37.2 04/17 1940 Pulse 86 04/17 1940 Resp 18 04/17 1940 All vital signs available at the time of this entry have been reviewed. Condition Stable Clinical ImpressionClinical ImpressionPrimary Impression: Depression Disposition DecisionOther )( Time 1610 )( Date 04/17/23 Text/Dict NoteMedically cleared for psychiatric evaluation and management. Discharge/Care PlanCounseled Regarding Diagnosis, Lab results, Need for psych eval at 2146 Addendum 1: 04/18/23 0433 by Erika Kelly MD Behavioral Health Addendum Detailed Suicide Risk)( Pos Mark Anthony Nasreen Risk Screen? YesOverall level suicide risk: moderate risk at 0433 Addendum 2: 04/19/23 1001 by David Barajas DO Patient AddendumAddendumPatient has been evaluated by psychiatric services and discharge is recommended. Patient's comorbidities and social factors such as living arrangements were considered during disposition decision. Patient's chart and previous visits were also reviewed during this patient encounter. History was obtained from: Patient Differential diagnosis included: Depression, anxiety, suicidal and homicidal ideation Patient was started on and given prescription for: Not applicable Provider Time Updates Greet Date/TimeDate/Time Seen by Provider 04/17/23 1443 DispositionDischarge )( Discharged to Home Yes )( Time 1001 )( Date 04/19/23 at 1001RPT #:[id number] OF REPORTEDEmergency department [id number]:10:00V.[id number] for patient [id number]:46:41 [facility] 2023-04-17 16:08:00 [id number]+[id number]/[id number] 23-04-176:08:182790-9981 [facility] PATIENT NAME: LUIS ENRIQUE MARSHALL ADMIT DATE: 04/17/23ACCOUNT NO: [id number] ROOM NO: AGE: 37 REPORT TYPE: eEKG REPORT SEX: F DATE OF : 85ADMITTING PHYSICIAN: ATTENDING PHYSICIAN: Order:[id number] Reason : Test Date/Time Stamp:SunApr 17 2023 16:08:28Blood Pressure : / mmHGVent. Rate : 091 BPM Atrial Rate : 091 BPM P-R Int : 128 ms QRS Dur : 090 ms QT Int : 404 ms P-R-T Axes : 045 000 006 degrees QTc Int : 496 ms Normal sinus rhythmNonspecific T wave abnormalityProlonged QTAbnormal ECGConfirmed by MD ANA, JOSE ([id number]) on 04/18/2023 10:23:16 AM Referred By: Self Referred Confirmed by:JOSE PEREZ MD at 1023 PATIENT NAME: LUIS ENRIQUE MARSHALL .[id number] for patient [id number]:23:32 [facility] 2022-09-21 07:19:00 [id number]+20 21-09-22T07:19:[address] [facility] ([facility])EMERGENCY PROVIDER REPORTREPORT#:[id number] REPORT STATUS: SignedDATE:09/21/22 TIME: 718 PATIENT: LUIS ENRIQUE MARSHALL UNIT #: [id number]#: [id number] ROOM/BED:AGE: 36 SEX: F PCP PHYS: No Primary or Family PhysicianSERVICE AUTHOR: Nain Nuñez MD LOCATION: [facility] * ALL edits or amendments must be made on the electronic/computer document * HPI-General Illness GeneralConfirmed Patient YesInitial Greet Date/Time 09/21/22 0659 PresentationChief Complaint __ (head pain)Hx Obtained From Patient Free Text HPI NotesFree Text HPI NotesNicgaby Marshall is a 36-year-old woman who presents ER with headache. She states she is in the head months ago. She had a CT scan of her head earlier today which was unremarkable. Patient seems to be somewhat homeless and is asking for assistance to get to another part of the city. I informed patient that she could talk to the police department about to social media project manager intake as they have had some luck transporting citizens across the city. Otherwise she has not tried herself or kill herself and is not suicidal or severely depressed. She has normal gait no deficits. No findings of mass or bleeding on recent work-up. Review of Systems ROS StatementsAll systems rev neg except as marked. Review of SystemsConstitutionalReports: Fatigue. RespiratoryDenies: Cough, non-productive, Cough, productive, Dyspnea on exertion, Hemoptysis, Parox nocturnal dyspnea, Pleuritic pain, Shortness of breath, Wheezing. CardiovascularDenies: Chest pain, Dyspnea on exertion, Edema, Orthopnea, Palpitations, Parox nocturnal dyspnea, Syncope. NeurologicReports: Headache. Past Medical History - AdultStated Complaint RJM-LYCBXNLK-YPYPVHCX-COUGH-DIARRHEAAll ergiesCoded Allergies:No Known Allergies (02/21/21) Home MedicationsActive ScriptsIBUPROFEN (MOTRIN) 600 MG PO TID PRN PRN PAIN 5 Days #15 TABS Prov: 09/20/22IBUPROFEN (MOTRIN) 600 MG PO Q8H PRN PRN PAIN/FEVER IBUPROFEN (MOTRIN) 600 MG PO Q8H PRN PRN PAIN/FEVER #20 TABS Prov: 09/21/22ONDANSETRON ODT (ZOFRAN ODT) 4 MG PO Q6H PRN PRN NAUSEA/VOMITING ONDANSETRON ODT (ZOFRAN ODT) 4 MG PO Q6H PRN PRN NAUSEA/VOMITING #15 TABS Prov: 09/21/22diphenhydrAMINE (BENADRYL) 50 MG PO Q6H PRN PRN HEADACHE diphenhydrAMINE (BENADRYL) 50 MG PO Q6H PRN PRN HEADACHE #30 CAPS Prov: 09/21/22 Review of Nursing Notes Rapid assess notes revPt reports no significant: Past medical history, Past surgical history, Family historyAdditional Medical HistoryBehavioral healthSmoking status for patients 13 years old or older: Current every day smoker Physical Exam Vital SignsVital SignsFirst Documented: Result Date Time Pulse Ox 98 09/21 0702 B/P 119/78 09/21 0702 B/P Mean 91 09/21 0702 O2 Delivery Room air 09/21 0702 Temp 98.1 09/21 0702 Pulse 104 09/21 0702 Resp 18 09/21 0702 Last Documented: Result Date Time Pulse Ox 98 09/21 0702 B/P 119/78 09/21 0702 B/P Mean 91 09/21 0702 O2 Delivery Room air 09/21 0702 Temp 98.1 09/21 0702 Pulse 104 09/21 0702 Resp 18 09/21 0702 Review of Vital Signs Reviewed Basic Physical ExamBasic PE GEN: Well appearing/NAD, HEAD: Atraumatic/NC, EYES: PERRL, conj clear, ENT: Membranes moist, NECK: Supple, RESP: No resp distress, CV: Reg rate rhythm, ABD: Soft/non-tender, EXT: No gross abnormality, SKIN: No rashes, warm/dry, NEURO: alert oriented, NEURO: gross movement NL, PSYCH: NL thought content Physical ExamEars/Nose/Throat Ears/Nose/Throat Airway patent, Mucous membranes moist, Pharynx NL Right Ear/Mastoid Negative: Tympanic membrane red, Tympanic membrane bulging, Tympanic memb perforated, Tympanic memb retracted, Bullous myringitis, Fluid behind TM clear, Fluid behind TM purulent, External canal red, External spinning frame tender, Ext canal foreign body, Discharge purulent, Discharge bloody, Ext canal cerumen impact, Mastoid area red, Mastoid area tender, [place] red, [place] tender. Left Ear/Mastoid Negative: Tympanic membrane red, Tympanic membrane bulging, Tympanic memb perforated, Tympanic memb retracted, Bullous myringitis, Fluid behind TM clear, Fluid behind TM purulent, External canal red, External spinning frame tender, Ext canal foreign body, Discharge purulent, Discharge bloody, Ext canal cerumen impact, Mastoid area red, Mastoid area tender, [place] red, [place] tender. Interpretation Diagnostics Lab Results InterpretationConsiderations Reviewed prior records Re-Evaluation MDM Free Text MDM NotesFree Text MDM NotesPrior records reviewed no emergent findings. No additional work-up indicated atthis time. Normal gait no deficits. Well for discharge home. Patient Discharge Departure Vital Signs/ConditionVital SignsFirst Documented: Result Date Time Pulse Ox 98 09/21 0702 B/P 119/78 09/21 0702 B/P Mean 91 09/21 0702 O2 Delivery Room air 09/21 0702 Temp 98.1 09/21 0702 Pulse 104 09/21 0702 Resp 18 09/21 0702 Last Documented: Result Date Time Pulse Ox 98 09/21 0702 B/P 119/78 09/21 0702 B/P Mean 91 09/21 0702 O2 Delivery Room air 09/21 0702 Temp 98.1 09/21 0702 Pulse 104 09/21 0702 Resp 18 09/21 0702 All vital signs available at the time of this entry have been reviewed. Condition Stable Clinical ImpressionClinical ImpressionPrimary Impression: Chronic headacheSecondary Impressions: SOCIAL ISSUES Disposition DecisionDischarge )( Discharged to Home Yes )( Time 07 )( Date 09/21/22 Discharge/Care PlanCounseled Regarding Need for follow-up, When to return to EDPatient Instructions ED Diarrhea, Unknown Cause, ED Earwax Removal, ED Headache Unspecified, Impacted EarwaxReferralsProvider Referral: Gita Christensen MD Address: [address] [place] [address] Departure FormsWEST PCP LISTWORK/SCHOOL EXCUSE-CAREGIVER 2 at 1037RPT #:[id number] OF REPORTEDEmergency department [id number]:19:00Z.[id number] for patient [id number]:37:35 [facility] 2022-09-21 01:57:00 [id number] 21-09-22T01:57:[address] [facility] ([facility])EMERGENCY PROVIDER REPORTREPORT#:[id number] REPORT STATUS: SignedDATE:09/21/22 TIME: 0157 PATIENT: LUIS ENRIQUE MARSHALL UNIT #: [id number]#: [id number] ROOM/BED:AGE: 36 SEX: F PCP PHYS: No Primary or Family PhysicianSERVICE AUTHOR: Kelly Weaver MD LOCATION: [facility] * ALL edits or amendments must be made on the electronic/computer document * HPI-Head Prob/Injury GeneralInitial Greet Date/Time 09/20/22 7195 PresentationChief Complaint HEADACHEHx Obtained From Patient)( Onset Occurred Gradual, Days agoSymptom Duration Waxes and wanesProgression since Onset Waxes and wanesCaused by No trauma by historyLocation DIFFUSEQuality AchingRadiation Does not radiateSeverity: Onset MildSeverity: Current MildAssociated withReports: Headache, Nausea. Denies: Abdominal pain, Dizziness, Neck pain, Vomiting. Associated Other Pt denies other symptomsExacerbated by NothingRelieved by Nothing Risk-Head Prob/Injury Risk Stratification)( Estelita Coma Score: Copyright Sir Bill Romero Copyright Sir Bill Romero Eye opening: (4) Spontaneous Verbal response: (5) Oriented Best motor response: (6) Obeys commands)( Intracranial Bleed Risk factors reviewed Review of Systems ROS StatementsAll systems rev neg except as marked. (AND PER HPI) Past Medical History - AdultStated Complaint MIGRAINEAllergiesCoded Allergies:No Known Allergies (02/21/21) Home MedicationsActive ScriptsIBUPROFEN (MOTRIN) 600 MG PO TID PRN PRN PAIN 5 Days #15 TABS Prov: 09/20/22 Physical Exam Vital SignsVital SignsFirst Documented: Result Date Time Pulse Ox 100 09/21 2307 B/P 122/73 09/21 2307 B/P Mean 89 09/21 2307 O2 Delivery Room air 09/21 2307 Temp 36.8 09/21 2307 Pulse 100 09/21 2307 Resp 18 09/21 2307 Last Documented: Result Date Time Pulse Ox 100 09/21 2307 B/P 122/73 09/21 2307 B/P Mean 89 09/21 2307 O2 Delivery Room air 09/21 2307 Temp 36.8 09/21 2307 Pulse 100 09/21 2307 Resp 18 09/21 2307 Review of Vital Signs Reviewed Focused PEGeneral/Const General/Const Awake, Alert, No acute distress, Not toxic appearingMS Head Head Atraumatic, NormocephalicEyes Eyes PERRL, EOMIEars/Nose/Throat Ears/Nose/Throat Airway patent, Pharynx NLMS Neck Neck No meningismus, Non-tenderResp/Chest Respiratory/Chest Breath sounds NL, Breath sounds = bilat, No respiratory distressCardiovascular Cardiovascular Heart rate NL, Regular rhythm, Heart sounds NLSkin Skin Warm, Dry, IntactNeurologic Neurologic Oriented X3, Speech NL, No motor deficits, No sensory deficitsPsychiatric Psychiatric Not suicidal, Not homicidal Interpretation Diagnostics Lab Results InterpretationResultsRecent Impressions:CAT SCAN - CT HEAD/BRAIN W/O CONT 09/21 0215 Report Impression - Status: SIGNED Entered: 09/21/2022 0241 IMPRESSION: No evidence of acute intracranial abnormality or hemorrhage. Impression By: Candis - Temo Bowden MD Imaging StatementRadiographic studies reviewed and considered in the medical decision-making. Re-Evaluation MDM Free Text MDM NotesFree Text MDM NotesPatient wound has poor personal hygiene presents complaining of headache in no visible distress with vital signs stable. CT head will be obtained to evaluate for possible intracranial abnormalities or pathology. Patient be medicated for headache and monitored while awaiting CT results. No signs of trauma no report of traumatic injury Re-Evaluation/Progress #1Text/Dict NoteCT head is within normal limits. Patient medicated for headache and will be discharged home in stable condition with prescription.Time of Re-Eval 326Re-Eval Status Improved ED CourseMedication(s) OrderedMedication(s) Ordered:Central Nervous System Agents Sig/Afua Start time Last Medication Dose Route Stop Time Status Admin Acetaminophen 1,000 MG X1ED STA 09/21 0156 DC 09/21 PO 09/21 156 0243 Gastrointestinal Drugs Sig/Afua Start time Last Medication Dose Route Stop Time Status Admin Ondansetron HCl 4 MG X1ED STA 09/21 0156 DC 09/21 PO 09/21 156 0242 Patient Discharge Departure Vital Signs/ConditionVital SignsFirst Documented: Result Date Time Pulse Ox 100 09/20 2308 B/P 122/73 09/20 2308 B/P Mean 89 09/20 2308 O2 Delivery Room air 09/20 2308 Temp 36.8 09/20 2308 Pulse 100 09/20 2308 Resp 18 09/20 2308 Last Documented: Result Date Time Pulse Ox 100 09/20 2308 B/P 122/73 09/20 2308 B/P Mean 89 09/20 2308 O2 Delivery Room air 09/20 2308 Temp 36.8 09/20 2308 Pulse 100 09/20 2308 Resp 18 09/20 2308 All vital signs available at the time of this entry have been reviewed. Condition Stable Clinical ImpressionClinical ImpressionPrimary Impression: Headache Disposition DecisionDischarge )( Discharged to Home Yes )( Time 326 )( Date 09/21/22 Discharge/Care PlanCounseled Regarding Diagnosis, Imaging studies, Prescriptions, Need for follow-up, When to return to ED(Auto) PrescriptionsCurrent Visit ScriptsIBUPROFEN (MOTRIN) 600 MG PO Q8H PRN PRN PAIN/FEVER IBUPROFEN (MOTRIN) 600 MG PO Q8H PRN PRN PAIN/FEVER #20 TABS ONDANSETRON ODT (ZOFRAN ODT) 4 MG PO Q6H PRN PRN NAUSEA/VOMITING ONDANSETRON ODT (ZOFRAN ODT) 4 MG PO Q6H PRN PRN NAUSEA/VOMITING #15 TABS diphenhydrAMINE (BENADRYL) 50 MG PO Q6H PRN PRN HEADACHE diphenhydrAMINE (BENADRYL) 50 MG PO Q6H PRN PRN HEADACHE #30 CAPS Patient Instructions ED Headache UnspecifiedAdditional InstructionsReturn to ER for acute or worsening symptoms.Drink lots of fluids and rest as much as possible.Take prescription medications as directed and neededFollow-up with primary physician in 1 to 2 days or with physician of your choiceReferralsProvider Group: [facility] Follow-Up: 2-3 Days Address: [address] [place] [address] [place] [address] Discharge NoteI have spoken with the patient and/or caregivers. I have explained the patient'scondition, diagnoses and treatment plan based on the information available to meat this time. I have answered the patient's and/or caregiver's questions and addressed any concerns. The patient and/or caregivers have as good an understanding of the patient's diagnosis, condition and treatment plan as can beexpected at this point. The vital signs have been stable. The patient's condition is stable and appropriate for discharge from the emergency department. The patient will pursue further outpatient evaluation with the primary care physician or other designated or consulting physician as outlined in the discharge instructions. The patient and/or caregivers are agreeable to this planof care and follow-up instructions have been explained in detail. The patient and/or caregivers have received these instructions in written format and have expressed an understanding of the discharge instructions. The patient and/or caregivers are aware that any significant change in condition or worsening of symptoms should prompt an immediate return to this or the closest emergency department or a call to 911. at 0841RPT #:[id number] OF REPORTEDEmergency department [id number]:57:00Z.[id number] for patient [id number]:41:15 [facility] 18:30:00 [id number] 21-09-21T18:30:[address] [facility] ([facility])EMERGENCY PROVIDER REPORTREPORT#:[id number] REPORT STATUS: SignedDATE:09/20/22 TIME: 1829 PATIENT: LUIS ENRIQUE MARSHALL UNIT #: [id number]#: [id number] ROOM/BED:AGE: 36 SEX: F PCP PHYS: No Primary or Family PhysicianSERVICE AUTHOR: Elvis Rodrigez NP LOCATION: [facility] * ALL edits or amendments must be made on the electronic/computer document * Elvis Rodrigez 09/20/221829:HPI-Dental/Mouth Prob GeneralConfirmed Patient YesPatient Type New patientInitial Greet Date/Time 09/20/221822 PresentationChief Complaint Tooth painHx Obtained From PatientSeverity: Current Pain level 6 out of 10 ContextRecent Healthcare No recent doctor visit, No recent hospitalization Free Text HPI NotesFree Text HPI NotesThis 36-year-old female presents emergency department with complaints of upper left tooth pain with headache for the last 2 days. Patient states has not takenany medication for pain today. Patient requesting to have a Tylenol 3 or [place] for pain. Patient denies past medical history and allergies to medications. Review of Systems ROS StatementsAll systems rev neg except as marked. Focused Review of SystemsEars/Nose/ThroatReports: Toothache. Additional Review of SystemsNeurologicReports: Headache. Past Medical History - AdultStated Complaint HEADACHEAllergiesCoded Allergies:No Known Allergies (02/21/21) Pt reports no significant: Past medical history, Past surgical historyAdditional Medical HistoryBehavioral healthSmoking status for patients 13 years old or older: Unknown,if ever smoked Physical Exam Vital SignsVital SignsFirst Documented: Result Date Time Pulse Ox 100 09/20 1724 B/P 116/64 09/20 1724 B/P Mean 81 09/20 172 O2 Delivery Room air 09/20 172 Temp 36.9 09/20 172 Pulse 120 09/21 1723 Resp 16 09/21 1723 Last Documented: Result Date Time Pulse Ox 100 09/21 1723 B/P 116/64 09/21 1723 B/P Mean 81 09/21 1723 O2 Delivery Room air 09/21 1723 Temp 36.9 09/21 1723 Pulse 120 09/21 1723 Resp 16 09/21 1723 Review of Vital Signs Reviewed Focused PEGeneral/Const General/Const Awake, Alert, No acute distress, Well appearing, Well developed, Well hydrated, Well nourished, Cooperative, Not toxic appearingEars/Nose/Throat Ears/Nose/Throat Atraumatic, Airway patent, Mucous membranes moist, Pharynx NL, Tympanic membs NL Dental/Gums Dental caries present, Dentition poor. Negative: Gum bleeding present, Gum swelling, Gum ulcers present. MS Neck Neck Atraumatic, Supple, No meningismus, Full range of motionResp/Chest Respiratory/Chest Atraumatic, Breath sounds NL, Breath sounds = bilat, No respiratory distress, No rales, No rhonchi, No wheezing, No retractions, No stridor, No chest tenderness, No chest wall deformity, No crepitusCardiovascular Cardiovascular Heart rate NL, Regular rhythm, Heart sounds NLNeurologic Neurologic Oriented X3, Speech NL Interpretation Diagnostics Point of Care TestingPulse Oximetry Pulse Ox % 100 On: Room air Interpretation Interpreted by , Pulse oximetry normal Time 1723 Re-Evaluation MDM Free Text MDM NotesFree Text MDM Notes The patient is discharged home with supportive care, a plan for symptom management/medication(s), and follow-up instructions that detail what to expect over the next 48 hours and what symptoms should prompt immediate return to the ED. Follow-up instructions have been explained in detail to the patient, and theinstructions have been provided in written format. The patient is comfortable with the plan of care and has expressed an understanding of the discharge instructions. The patient and/or caregivers are aware that any significant change in condition or worsening of symptoms should prompt an immediate return to this or the closest emergency department or a call to 911. ED CourseMedication(s) OrderedMedication(s) Ordered:Central Nervous System Agents Sig/Afua Start time Last Medication Dose Route Stop Time Status Admin Ibuprofen 600 MG X1ED STA 09/20 1829 DC 09/20 PO 03/22 1831 1833 Patient Discharge Departure Vital Signs/ConditionVital SignsFirst Documented: Result Date Time Pulse Ox 100 09/20 1724 B/P 116/64 09/20 1724 B/P Mean 81 09/20 1724 O2 Delivery Room air 09/20 1724 Temp 36.9 09/20 1724 Pulse 120 09/20 1724 Resp 16 09/20 1724 Last Documented: Result Date Time Pulse Ox 100 09/20 1724 B/P 116/64 09/20 1724 B/P Mean 81 09/20 1724 O2 Delivery Room air 09/20 172 Temp 36.9 09/20 1724 Pulse 120 09/20 1724 Resp 16 09/20 172 All vital signs available at the time of this entry have been reviewed. Condition Stable Clinical ImpressionClinical ImpressionPrimary Impression: Dental cariesSecondary Impressions: Pain, dental Disposition DecisionDischarge )( Discharged to Home Yes )( Time 1842 )( Date 09/20/22 Discharge/Care PlanCounseled Regarding Diagnosis, Prescriptions, Need for follow-up, When to returnto ED(Auto) PrescriptionsCurrent Visit ScriptsIBUPROFEN (MOTRIN) 600 MG PO TID PRN PRN PAIN 5 Days #15 TABS Prescriptions Reviewed Risks, Benefits, Alternative treatmentPatient Instructions ED Dental Cavity, ED Dental PainDeparture FormsLOW COST OR [facility]ICSPENOB[facility] Discharge NoteI have spoken with the patient and/or caregivers. I have explained the patient'scondition, diagnoses and treatment plan based on the information available to meat this time. I have answered the patient's and/or caregiver's questions and addressed any concerns. The patient and/or caregivers have as good an understanding of the patient's diagnosis, condition and treatment plan as can beexpected at this point. The vital signs have been stable. The patient's condition is stable and appropriate for discharge from the emergency department. The patient will pursue further outpatient evaluation with the primary care physician or other designated or consulting physician as outlined in the discharge instructions. The patient and/or caregivers are agreeable to this planof care and follow-up instructions have been explained in detail. The patient and/or caregivers have received these instructions in written format and have expressed an understanding of the discharge instructions. The patient and/or caregivers are aware that any significant change in condition or worsening of symptoms should prompt an immediate return to this or the closest emergency department or a call to 911. Quality MeasuresBP F/U for HTN Referred for BP f/u < 4wk Fanta Brannon 09/22/227:Past Medical History - AdultHome MedicationsActive ScriptsIBUPROFEN (MOTRIN) 600 MG PO Q8H PRN PRN PAIN/FEVER IBUPROFEN (MOTRIN) 600 MG PO Q8H PRN PRN PAIN/FEVER #20 TABS Prov: 09/21/22ONDANSETRON ODT (ZOFRAN ODT) 4 MG PO Q6H PRN PRN NAUSEA/VOMITING ONDANSETRON ODT (ZOFRAN ODT) 4 MG PO Q6H PRN PRN NAUSEA/VOMITING #15 TABS Prov: 09/21/22diphenhydrAMINE (BENADRYL) 50 MG PO Q6H PRN PRN HEADACHE diphenhydrAMINE (BENADRYL) 50 MG PO Q6H PRN PRN HEADACHE #30 CAPS Prov: 09/21/22 Patient Discharge Departure Discharge/Care PlanReferralsResource Referral: [facility] Address: [address] [place] [address] Supervising Physician Note MidLv Saw Pt AloneI have reviewed the PA/CNA HOSPICE's note and plan of care. I was available for consultation as needed at all times during the patient's visit in the emergency department. I agree with the clinical impression, plan and disposition. at [phone] at 2208RPT #:[id number] OF REPORTEDEmergency department [id number] for patient [id number] HCAWU
[2023-10-17] MEDS ORDERED: LORazepam 2 MG/ML VIAL ONE (23:05)
[2023-10-17] MEDS ORDERED: LORAZEPAM 1 MG TABLET ONE (23:20)
[2023-10-18] MEDS ORDERED: ZIPRASIDONE MESYLA 20 MG/VIAL IM ONE ×2 (00:22→00:23)
[2023-10-18] MEDS ORDERED: WATER FOR INJ,STERILE 10 ML ONE (00:23)
[2023-10-18] MEDS ORDERED: MULTIVITAMINS 10 ML VIAL (INJ) IV ONE (00:56)
[2023-10-18] MEDS ORDERED: THIAMINE 200 MG/2 ML INJ ONE (00:56)
[2023-10-18] MEDS ORDERED: FOLIC ACID 5 MG/ML VIAL ONE (00:56)
[2023-10-18] MEDS ORDERED: NA CHLORIDE 0.9% 2,000 ML ONE (00:57)
[2023-10-18 01:11] LABS: Absolute Basophils 0.1 K/uL (0-0.5); Absolute Lymphocytes (CBC) 2.9 K/uL (0.7-4.9); Absolute Monocytes 0.5 K/uL (0.1-1.3); Absolute Neutrophil 7.1 K/uL (1.8-8.0); Basophils % 1.3 % (0-1.3); Eosinophils % 0.4 % (0-4.4); Hematocrit 40.2 % (36.0-45.0); Lymphocytes % 26.9 % (15.3-44.8); MCH 33.5 pg (27.0-35.0); MCHC 34.7 g/dL (32.0-36.0); MCV 96.4 fL (80-100); MPV 9.2 fL (7.6-11.3); Neutrophils % 66.4 % (41.7-73.7); Platelets 296 thou/uL (152-406); RBC Red Blood Cell Count 4.17 M/uL (3.86-4.86); Red Cell Distribution Width 13.1 % (12.1-15.2)
[2023-10-18 01:12] LABS: PT Prothrombin Time 11.1 SECONDS (9.5-12.5); PTT, Activated Partial Thromb 21.3 SECONDS (24.3-36.9); Protime INR 1.01
[2023-10-18 01:26] LABS: ALT/SGPT 27 U/L (13-56); AST/SGOT 33 U/L (15-37); Albumin 4.1 g/dL (3.4-5.0); Albumin/Globulin Ratio 0.9 (1.1-1.8); Alkaline Phosphatase 75 U/L (45-117); Anion Gap 11.3 mEq/L (5.0-15.0); BUN Blood Urea Nitrogen 9 mg/dL (7-18); Bicarbonate 23 mEq/L (21-32); Bilirubin Direct 0.1 mg/dL (0-0.2); Bilirubin Indirect, Calculated 0.4 mg/dL (0.2-0.8); Bilirubin Total 0.5 mg/dL (0.2-1.0); Globulin 4.6 g/dL (2.3-3.5); Glomerular Filtration Rate 94 ml/min (=/>90); Glucose Level 76 mg/dL (74-106); Potassium 3.3 mEq/L (3.5-5.1); Protein, Total 8.7 g/dL (6.4-8.2); Sodium Level 135 mEq/L (136-145)
--- NOTE | 2023-10-18 07:23 | EDPHYS ---
Physician Documentation [facility] Name: Carolyn Aguirre Age: 38 yrs Sex: Female : 1985 Arrival Date: 10/17/2023 Time: 22:06 Bed 5 Private MD: ED Physician Chaz Maloney HPI: 10/16 22:26 This 38 yrs old Female presents to ER via Unassigned with complaints of Psych sp4 Problem. 10/17 01:11 Patient is 38-year-old female with history of bipolar disorder and methamphetamine sp4 abuse who presents with police escort. Police brought patient with FILOME[place] stating that patient was wandering streets aimlessly and walking [place] and [place]. She is not able to state where she is going and not able to state her name and not able to state her age. Appears intoxicated and mildly agitated. Historical: - Allergies: 10/16 22:30 No Known Allergies; vc1 - Home Meds: 22:30 None [Active]; vc1 - PMHx: 22:30 Bipolar disorder; vc1 - PSHx: 22:30 Unable to Obtain; vc1 - Immunization history:: Adult Immunizations unknown. - Infectious Disease History:: Denies. - Social history:: Smoking status: Patient reports the use of cigarette tobacco products, smokes one pack cigarettes per day. - Family history:: not pertinent. ROS: 10/17 01:11 Constitutional: ROS not available secondary to agitation and intoxication sp4 All other systems are negative, Unable to obtain ROS due to patient being uncooperative, Exam: 01:11 Constitutional: This is a well developed, well nourished patient who is awake, patient sp4 is visibly intoxicated and agitated secondary to stimulant intoxication. Patient appears homeless and unkempt Head/Face: Normocephalic, atraumatic. Eyes: Pupils equal round and reactive to light, extra-ocular motions intact. Lids and lashes normal. Conjunctiva and sclera are not injected. Cornea within normal limits. Periorbital areas with no swelling, redness, or edema. ENT: Nares patent. No nasal discharge, no septal abnormalities noted. Tympanic membranes are normal and external auditory canals are clear. Oropharynx with no redness, swelling, or masses, exudates, or evidence of obstruction, uvula midline. Mucous membranes moist. Neck: Trachea midline, no thyromegaly or masses palpated, and no cervical lymphadenopathy. Supple, full range of motion without nuchal rigidity, or vertebral point tenderness. Chest/axilla: Normal chest wall appearance and motion. Nontender with no deformity. No lesions are appreciated. Cardiovascular: Regular rate and rhythm with a normal S1 and S2. No gallops, murmurs, or rubs. Normal PMI, no JVD. No pulse deficits. Respiratory: Lungs have equal breath sounds bilaterally, clear to auscultation and percussion. No rales, rhonchi or wheezes noted. No increased work of breathing, no retractions or nasal flaring. Abdomen/GI: Soft, with normal bowel sounds. No distension or tympany. No guarding or rebound. No evidence of tenderness throughout. Back: No spinal tenderness. No costovertebral tenderness. Skin: Warm, dry with normal turgor. Normal color with no rashes, no lesions, and no evidence of cellulitis. MS/ Extremity: Pulses equal, no cyanosis. Neurovascular intact. Full, normal range of motion. Neuro: Awake and alert, GCS 15, oriented to person, place, time, and situation. Cranial nerves II-XII grossly intact. Motor strength 5/5 in all extremities. Sensory grossly intact. Psych: Awake, alert, with orientation to person, place and time. Behavior, mood, and affect are within normal limits 01:11 ECG was reviewed by the Attending Physician. EKG at 0032 normal sinus rhythm at a rate of 94 prolonged QT otherwise normal Vital Signs: 10/16 22:28 BP 98 / 73; Pulse 101; Resp 14; Temp 97.3; Pulse Ox 98% ; Weight 82.5 kg; vc1 18 03:00 BP 132 / 182; Pulse 97; Resp 16; Pulse Ox 99% ; vc1 04:00 BP 99 / 66; Pulse 94; Resp 14; Pulse Ox 99% ; vc1 05:00 BP 89 / 61; Pulse 87; Resp 14; Pulse Ox 99% ; vc1 06:00 BP 98 / 70; Pulse 87; Resp 15; Pulse Ox 97% ; vc1 08:18 BP 106 / 81 LA Supine (auto/reg); Pulse 83 MON; Resp 15 S; Pulse Ox 99% on R/A; jg11 10:51 BP 119 / 76; Pulse 84; Resp 18; Temp 98(TE); Pulse Ox 100% on R/A; ld1 Estelita Coma Score: 01:11 Eye Response: spontaneous(4). Motor Response: obeys commands(6). Verbal Response: sp4 confused(4). Total: 14. MDM: 10/16 22:36 Patient medically screened. sp4 10/17 01:11 Differential diagnosis: drug withdrawal. acute psychotic break, depression, psychosis sp4 secondary to non-compliance. Data reviewed: vital signs, nurses notes, old medical records, lab test result(s), EKG. ED course: Patient manifested with persistent significant agitation and had to be given Geodon 40 IM. Patient was here for the same problem on 10/16/2023 and was released from the emergency room after she improved. Patient has been found positive for methamphetamine and THC. . 07:11 Transition of care: After a detail discussion of the patient's case, care is sp4 transferred to Chaz Maloney MD. 10/16 22:24 Order name: Acetaminophen; Complete Time: 03:21 sp4 10/16 22:24 Order name: Basic Metabolic Panel; Complete Time: 03:21 sp4 10/16 22:24 Order name: CBC with Diff; Complete Time: 01:23 sp4 10/16 22:24 Order name: ETOH Level; Complete Time: 03:21 sp4 10/16 22:24 Order name: Hepatic Function; Complete Time: 03:21 sp4 10/16 22:24 Order name: PT-INR; Complete Time: 01:23 sp4 10/16 22:24 Order name: Ptt, Activated; Complete Time: 01:23 sp4 10/16 22:24 Order name: Salicylate; Complete Time: :23 sp4 10/16 22:24 Order name: EKG; Complete Time: 22:25 sp4 10/16 22:24 Order name: EKG - Nurse/Tech; Complete Time: :18 sp4 10/16 22:24 Order name: IV Saline Lock; Complete Time: :18 sp4 10/16 22:24 Order name: Labs collected and sent; Complete Time: :18 sp4 10/16 22:24 Order name: Suicide Screening ([place]); Complete Time: 06:21 sp4 EC:11 Rate is 94 beats/min. Rhythm is regular, Normal Sinus Rhythm. QRS [place] is Normal. [place] sp4 interval is normal. QRS interval is normal. QT interval is prolonged. No Q waves. T waves are Normal. No ST changes noted. Clinical impression: No evidence of ischemia. Interpreted by me. Reviewed by me. Administered Medications: 10/16 23:40 CANCELLED (Patient Refused): lorazepam4 mg IM once vc1 23:40 Drug: LORazepam PO 4 mg PO once Route: PO; vc1 10/17 06:18 Follow up: Response: No adverse reaction; Marked relief of symptoms vc1 00:20 Drug: Geodon IM 40 mg IM once Route: IM; Site: right vastus lateralis; vc1 06:18 Follow up: Response: No adverse reaction; Marked relief of symptoms vc1 01:15 Drug: NS 0.9% IV 1000 ml IV at 1 bolus Per protocol; 1000 mL bolus Route: IV; Rate: 1 vc1 bolus; Site: right wrist; 01:20 Follow up: Rate change bolus; IV Status: IV infiltrated vc1 01:16 Drug: Banana Bag - (Multivitamin IV 1 amp, NS 0.9% IV 1000 ml, Thiamine IV 100 mg, vc1 foLIC Acid IVPB 1 mg) IV at calculated rate once Route: IV; Rate: calculated rate; Site: right wrist; 01:20 Follow up: IV Status: IV infiltrated vc1 Disposition Summary: 10/18/23 10:30 Discharge Ordered Notes: Location: Home garry Problem: new(10/18/23 10:30) garry Symptoms: have improved(10/18/23 10:30) garry Condition: Stable(10/18/23 10:30) garry Diagnosis - Abuse of other non-psychoactive substances(10/18/23 10:30) garry - Adverse effect of amphetamines(10/18/23 10:30) garry - Bipolar disorder, unspecified(10/18/23 10:30) garry - Homelessness(10/18/23 10:30) garry Followup: garry - With: Private Physician - When: 2 - 3 days - Reason: Recheck today's complaints, Continuance of care, Re-evaluation by your physician Followup: garry - With: Brian Plata MD - When: 2 - 3 days - Reason: Recheck today's complaints, Re-evaluation by your physician Discharge Instructions: - Discharge Summary Sheet garry - Finding Treatment for Addiction garry - Substance Use Disorder garry - Supporting Someone With an Addiction garry - Methamphetamines Use Disorder garry - Managing Bipolar Disorder garry - Supporting Someone With Bipolar Disorder garry - Substance Use Disorder and Mental Illness garry Forms: - Medication Reconciliation Form garry - Thank You Letter garry - Antibiotic Education garry - Prescription Opioid Use garry - Patient Portal Instructions garry - Leadership Thank You Letter garry Signatures: Dispatcher [employer] EDMS Chaz Maloney MD MD cha Calcote, Vanessa, RN RN vc1 Igor Jackson MD MD sp4 Corrections: (The following items were deleted from the chart) 10/16 23:40 22:24 LORazepam IM 4 mg IM once ordered. sp4 vc1 10/17 07:22 10/16 22:25 Test, Urine+UC.LAB.BRZ ordered. EDNJ EDNJ 10/17 07:22 10/16 22:25 Urinalysis+U.LAB.BRZ ordered. EDNJ EDNJ 10/17 07:23 10/16 22:25 URINE DRUG SCREEN+UC.LAB.BRZ ordered. EDNJ EDNJ 10/17 10:27 07:23 to psych garry garry 10:27 07:23 [facility] garry garry 10:27 07:23 Higher level of care garry garry 10:27 07:23 Stable garry garry 10:27 07:23 new garry garry 10:27 07:23 have improved garry garry 10:27 07:23 Bipolar disorder, unspecified garry garry 10:27 07:23 Suicidal ideations garry garry 10:27 07:23 Homelessness garry garry 10:27 07:23 Abuse of other non-psychoactive substances garry garry 10:27 07:23 Adverse effect of amphetamines garry garry
--- NOTE | 2023-10-18 07:23 | ER ---
Nurse's Notes [facility] Name: Carolyn Aguirre Age: 38 yrs Sex: Female : 1985 Arrival Date: 10/17/2023 Time: 22:06 Bed 5 Private MD: Diagnosis: Abuse of other non-psychoactive substances;Adverse effect of amphetamines;Bipolar disorder, unspecified;Homelessness Presentation: 10/16 22:28 Chief complaint: [place] [employer]; Pt found walking through apartment complex could not vc1 remember her name or birthday, or what year it is. Coronavirus screen: At this time, the client does not indicate any symptoms associated with coronavirus-19. Coronavirus screen: Vaccine status:. Ebola Screen: Patient negative for fever greater than or equal to 101.5 degrees Fahrenheit, and additional compatible Ebola Virus Disease symptoms Patient denies exposure to infectious person. Patient denies travel to an Ebola-affected area in the 21 days before illness onset. No symptoms or risks identified at this time. Initial Sepsis Screen: Does the patient meet any 2 criteria? No. Patient's initial sepsis screen is negative. Does the patient have a suspected source of infection? No. Patient's initial sepsis screen is negative. Risk Assessment: Do you want to hurt yourself or someone else? Patient reports no desire to harm self or others. Onset of symptoms is unknown. Care prior to arrival: None. Activity prior to arrival: confused. Mechanism of Injury: No Mechanism of Injury. Transition of care: patient was not received from another setting of care. 22:28 Method Of Arrival: Law Enforcement: Alexy KINNEY vc1 22:28 Acuity: [place] 2 vc1 Triage Assessment: 22:35 General: Appears in no apparent distress. Behavior is flat, uncooperative, Smells of vc1 alcohol. Pain: Denies pain. EENT: No deficits noted. No signs and/or symptoms were reported regarding the EENT system. Historical: - Allergies: 22:30 No Known Allergies; vc1 - Home Meds: 22:30 None [Active]; vc1 - PMHx: 22:30 Bipolar disorder; vc1 - PSHx: 22:30 Unable to Obtain; vc1 - Immunization history:: Adult Immunizations unknown. - Infectious Disease History:: Denies. - Social history:: Smoking status: Patient reports the use of cigarette tobacco products, smokes one pack cigarettes per day. - Family history:: not pertinent. Screenin:19 [facility] ED Fall Risk Assessment (Adult) History of falling in the last 3 months, vc1 including since admission No falls in past 3 months (0 pts) Confusion or Disorientation No (0 pts) Intoxicated or Sedated No (0 pts) Impaired Gait No (0 pts) Mobility Assist Device Used No (0 pt) Altered Elimination No (0 pt) Score/Fall Risk Level 0 - 2 = Low Risk Oriented to surroundings, Maintained a safe environment, Educated pt \\T\\ family on fall prevention, incl call for assistance when getting out of bed. Abuse screen: Denies threats or abuse. Nutritional screening: No deficits noted. Tuberculosis screening: No symptoms or risk factors identified. Assessment: 10/17 00:18 General: Pt refuses IV or blood work. Pt refuse to stay in room. Pt would like vc1 something to relax.. 01:00 Reassessment: Patient appears in no apparent distress at this time. No changes from vc1 previously documented assessment. Pt refuses vitals. 01:20 Reassessment: Pt IV infiltrated. Pt refuses new IV. Provider notified, no IV needed. vc1 02:00 Reassessment: Patient appears in no apparent distress at this time. No changes from vc1 previously documented assessment. Patient and/or family updated on plan of care and expected duration. Pain level reassessed. Pt refuses vitals.. 03:00 Reassessment: Patient appears in no apparent distress at this time. No changes from vc1 previously documented assessment. Patient and/or family updated on plan of care and expected duration. Pain level reassessed. PT resting comfortable. Allowed aide to take blood pressure and put pulse ox back on her finger. 04:00 Reassessment: Patient appears in no apparent distress at this time. No changes from vc1 previously documented assessment. Patient and/or family updated on plan of care and expected duration. Pain level reassessed. 05:00 Reassessment: Patient appears in no apparent distress at this time. No changes from vc1 previously documented assessment. Patient and/or family updated on plan of care and expected duration. Pain level reassessed. 06:00 Reassessment: Patient appears in no apparent distress at this time. No changes from vc1 previously documented assessment. Patient and/or family updated on plan of care and expected duration. Pain level reassessed. 07:00 Reassessment: Patient appears in no apparent distress at this time. Patient and/or ko1 family updated on plan of care and expected duration. Pain level reassessed. patient is sleeping, awakens easily, answers some questions, refused to urinate for labs. 08:00 Reassessment: Patient appears in no apparent distress at this time. No changes from ko1 previously documented assessment. Patient and/or family updated on plan of care and expected duration. Pain level reassessed. Patient is alert, oriented x 3, equal unlabored respirations, skin warm/dry/pink. 09:00 Reassessment: Patient appears in no apparent distress at this time. No changes from ko1 previously documented assessment. Patient and/or family updated on plan of care and expected duration. Pain level reassessed. Patient is alert, oriented x 3, equal unlabored respirations, skin warm/dry/pink. 10:00 Reassessment: Patient appears in no apparent distress at this time. No changes from ko1 previously documented assessment. Patient and/or family updated on plan of care and expected duration. Pain level reassessed. Patient is alert, oriented x 3, equal unlabored respirations, skin warm/dry/pink. 10:51 Reassessment: Patient appears in no apparent distress at this time. No changes from ld1 previously documented assessment. Patient and/or family updated on plan of care and expected duration. Pain level reassessed. Psych: 10/16 22:19 Berger Suicide Severity Screening: In the past month, have you wished you were vc1 or wished you could go to sleep and not wake up? Patient responds "No." "In the past month, have you actually had any thoughts of killing yourself?" Patient responds "no." "In your lifetime, have you ever done anything, started to do anything, or prepared to do anything to end your life?" Patient responds "no.". 22:19 Subjective: Patient's mood is irritable, Delusions are denied, Hallucinations are vc1 denied. Objective: Patient is uncooperative, guarded, irritable, Speech is soft. Interventions: Removed personal items and placed in bag. Searched person for dangerous items. Safety Checks: Personal items have not been removed. Door is open. No visitors are present at this time. Patient uses Patient uses methamphetamines. Commitment: Patient will be an involuntary commitment. Commitment papers completed. Vital Signs: 22:28 BP 98 / 73; Pulse 101; Resp 14; Temp 97.3; Pulse Ox 98% ; Weight 82.5 kg; vc1 18 03:00 BP 132 / 182; Pulse 97; Resp 16; Pulse Ox 99% ; vc1 04:00 BP 99 / 66; Pulse 94; Resp 14; Pulse Ox 99% ; vc1 05:00 BP 89 / 61; Pulse 87; Resp 14; Pulse Ox 99% ; vc1 06:00 BP 98 / 70; Pulse 87; Resp 15; Pulse Ox 97% ; vc1 08:18 BP 106 / 81 LA Supine (auto/reg); Pulse 83 MON; Resp 15 S; Pulse Ox 99% on R/A; [id number] 10:51 BP 119 / 76; Pulse 84; Resp 18; Temp 98(TE); Pulse Ox 100% on R/A; ld1 [place] Coma Score: 01:11 Eye Response: spontaneous(4). Motor Response: obeys commands(6). Verbal Response: sp4 confused(4). Total: 14. ED Course: 10/16 22:19 Patient arrived in ED. wm 22:19 Arm band placed on right wrist. vc1 22:19 Patient has correct armband on for positive identification. Bed in low position. Call vc1 light in reach. Pulse ox on. NIBP on. 22:19 No provider procedures requiring assistance completed. vc1 22:24 Igor aJckson MD is Attending Physician. sp4 22:30 Triage completed. vc1 10/17 00:19 Jing Juan RN informed me to call [facility]. Officer en route. wm 07:07 Christen Cruz, RN is Primary Nurse. ko1 07:11 Report given to CHRISTEN MERCER. [email or web address] 07:15 Attending Physician role handed off by Igor Jackson MD garry 07:15 Chaz Maloney MD is Attending Physician. garry 08:31 contacted [facility] to have a screener evaluate pt. bd 09:53 faxed chart to jadwin . bd 10:28 Brian Plata MD is Referral Physician. garry 10:50 Provided Education on: safety plan. ld1 10:50 Patient did not have IV access during this emergency room visit. ld1 Administered Medications: 10/16 23:40 CANCELLED (Patient Refused): lorazepam4 mg IM once vc1 23:40 Drug: LORazepam PO 4 mg PO once Route: PO; vc1 10/17 06:18 Follow up: Response: No adverse reaction; Marked relief of symptoms vc1 00:20 Drug: Geodon IM 40 mg IM once Route: IM; Site: right vastus lateralis; vc1 06:18 Follow up: Response: No adverse reaction; Marked relief of symptoms vc1 01:15 Drug: NS 0.9% IV 1000 ml IV at 1 bolus Per protocol; 1000 mL bolus Route: IV; Rate: 1 vc1 bolus; Site: right wrist; 01:20 Follow up: Rate change bolus; IV Status: IV infiltrated vc1 01:16 Drug: Banana Bag - (Multivitamin IV 1 amp, NS 0.9% IV 1000 ml, Thiamine IV 100 mg, vc1 foLIC Acid IVPB 1 mg) IV at calculated rate once Route: IV; Rate: calculated rate; Site: right wrist; 01:20 Follow up: IV Status: IV infiltrated vc1 Medication: 06:20 VIS not applicable for this client. vc1 Outcome: 07:23 ER care complete, transfer ordered by MD. garry 10:30 Discharge ordered by . garry 10:50 Discharged to home ambulatory, ld1 10:50 Condition: stable 10:50 Discharge instructions given to patient, Instructed on discharge instructions, follow up and referral plans. Demonstrated understanding of instructions, follow-up care, 10:52 Patient left the ED. ld1 Signatures: Elizabeth Rubin Corey, MD MD cha Sims, Lauren RN RN ld1 Regi Waddell Jing Juan RN RN vc1 Christen Cruz RN RN ko1 Toña Yan RN RN [email or web address] Igor Jackson MD MD sp4 Ryan Patterson [email or web address] Corrections: (The following items were deleted from the chart) 04: 04 22:55 Arm band placed on right wrist. vc1 vc1 10/17 07:22 07:10 Test, Urine+UC.LAB.BRZ drawn and sent. ko1 EDMS 07:22 07:10 Urinalysis+U.LAB.BRZ drawn and sent. allison EDMS 07:23 07:10 URINE DRUG SCREEN+UC.LAB.BRZ drawn and sent. tristen1 EDMS 07:38 07:36 Reassessment: Patient appears in no apparent distress at this time. Patient ko1 and/or family updated on plan of care and expected duration. Pain level reassessed. patient is sleeping, awakens easily, answers some questions, refused to urinate for labs. ko1
[2023-10-18 16:25] VITALS: BP 119/76; TEMP 98; O2SAT 100
== END 2023-10-18 10:52 | disposition home or self-care (01) ==
LOC: ER 22:06
DX: F31.9 Bipolar disorder, unspecified (principal); R45.851 Suicidal ideations; F55.8 Abuse of other non-psychoactive substances; T43.625A Adverse effect of amphetamines, initial encounter; Z59.00 Homelessness unspecified
CPT/HCPCS: 36415; 80048; 80076; 80143; 80179; 82077; 85025; 85610; 85730; 93005; J3411; J3486; J7030

== ENCOUNTER 2023-10-18 23:03 | Emergency (ER) | payer SELFPAY ==
--- OUTSIDE RECORDS SUMMARY | 2023-10-18 23:07 | XMS REPORT | Continuity of Care Document ---
Author Name Unknown Address [address] [facility] [place] [address] [facility] Address [address] [facility] [place] [address] Care Team Providers Care Continuous Improvement Coach Name Role Phone PCP, PATIENT DOES NOT HAVE A Primary Care Physic sahil Unavailable Maicol Pittman MD Attending Clinician [phone] Virgil Small MD Attending Clinician [phone] VIRGIL SMALL Attending Clinician Unavailab Ian Tripp Attending Clinician UnavailMervin Jennings Attending Clinician Unavailable Nain Nuñez Attending Clinician Unavailable Kelly Weaver Attending Clinician Unavailable Fanta Brannon Attending Clinician Unavailable SOFY ARITA Attending Clinician Unavaila olga GIBSON__ Attending Clinician Unavail able PAOLA CORNELL Attending Clinician Unavailab AMILCAR Mckinney Attending Clinician UnavailBandar Devi Attending Clinician Unavailable ELY BOCANEGRA Attending Clinician Un available BELKYS LOPEZ Attending Clinician Unavail able SHAREE MIDDLETON Attending Clinician Unavailable BERHANE DUENAS Attending Clinician Unava ilable ORLIN BURTON Attending Clinician Unavailab DOE Graf Attending Clinician Unava ilable SANDEE STEPHEN Attending Clinician Unava ilable JAYCE IRWIN Attending Clinician Unavailable UNDEFINED Admitting Clinician Unavailable Physician, No Primary or Family Admitting Clinic sahil Unavailable MARTITA_WALLACE__ Admitting Clinician Unavail able PAOLA CORNELL Admitting Clinician Unavailab DUNCAN John Admitting Clinician Unavailable Payers Payer Name Policy Type Policy Number Effective Date Expirati on Date Source [facility] [id number] [facility] [id number] Problems Condition Name Condition Details Condition Category Status Onset Date Resolution Date Last Treatment Date Treating Clinician Comments Source Boil of vulva Boil of vulva Disease Active 09-26 00:00: 00 [facility] Depression Depression Disease Active 08-03 00:00: 00 Overview: Formattin g of this note might be different from the original. bipolor [facility] Morbid obesity, unspecifie d obesity type Morbid obesity, unspecifie d obesity type Disease Active 08-03 00:00: 00 [facility] Allergies, Adverse Reactions, Alerts Allergy Name Allergy Type Status Severity Reaction(s) Onset Date Inactive Date Treating Clinician Comments Source No Known Allergie s DA Active U 2022-07 017 00:00: 00 [facility] No Known Drug Allergie s DA Active U 10-25 00:00: 00 [facility] No Known Allergie s DA Active U 02-21 00:00: 00 [facility] No Known Allergie s DA Active U 02-21 00:00: 00 [facility] NO KNOWN ALLERGIE S Drug Class Active [facility] Social History Social Habit Start Date Stop Date Quantity Comments Source History of tobacco use Cigarette Smoker [facility] of Social function 2019-01-09 00:00:00 2019-01-09 00:00:00 [facility] Alcohol intake 2018-10-30 00:00:00 2018-10-30 00:00:00 Current drinker of alcohol (finding) [facility] Alcohol Comment 2017-10-26 00:00:00 2017-10-26 00:00:00 social [facility] Cigarettes smoked current (pack per day) - Reported 2016-08-03 00:00:00 2016-08-03 00:00:00 [facility] Tobacco use and exposure 2016-08-03 00:00:00 2016-08-03 00:00:00 Smokeless tobacco non-user [facility] Sex Ass[birth year] At 1985 00:00:00 1985 00:00:00 [facility] Smoking Status Start Date Stop Date Source Smokes tobacco daily 2016-08-03 00:00:00 [facility] Medications Ordered Medication Name Filled Medication Name Start Date Stop Date Current Medication? Ordering Clinician Indication Dosage Frequency Signature (SIG) Comments Components Source ALPRAZolam (XANAX) tablet 2 mg 09-24 16:15: 00 09-24 16:18 :00 No 2mg 2 mg, Oral, ONCE, 1 dose, On Sun09/25/23 at 1115, JEF [facility] nicotine (NICODERM) 21 mg/24 hr patch 1 Patch 09-24 15:15: 00 Yes 1{patch } 1 Patch, Topical, Administer over 24 Hours, Q24H, First dose on Sun09/25/23 at 1015, Until Discontinu ed, Routine [facility] hydrOXYzine (ATARAX) tablet 50 mg 09-24 15:00: 00 09-24 15:12 :00 No 50mg 50 mg, Oral, ONCE, 1 dose, On Sun09/25/23 at 1000, JEF [facility] LURASIDONE HCL (LATUDA ORAL) 10-30 13:49: 15 Yes Take by mouth. [facility] hydrOXYzine 50 mg tablet 10-30 13:49: 15 Yes 837 50mg Take 50 mg by mouth daily. [facility] medroxyPROG ESTERone (DEPO-PROVE RA) injection 150 mg 10-26 16:15: 00 Yes [id number] 150mg [facility] Immunizations Ordered Immunization Name Filled Immunization Name Date Status Comments Source Influenza Virus Vaccine Quad .5 mL IM 6+ MO (FLUZONE/FLULAVAL/FL UARIX) Unknown Completed [facility] Vital Signs Vital Name Observation Time Observation Value Comments S lilian Systolic blood pressure 2023-09-26 08:43:00 136 mm[Hg] [facility] Diastolic blood pressure 2023-09-26 08:43:00 78 mm[Hg] [facility] Heart rate 2023-09-26 08:43:00 84 /min [facility] Respiratory rate 2023-09-26 08:43:00 20 /min [facility] Oxygen saturation in Arterial blood by Pulse oximetry 2023-09-26 08:43:00 99 /min [facility] Body temperature 2023-09-25 23:20:00 36.67 Rossy [facility] Body weight 2023-09-25 08:57:00 98.884 kg [facility] BMI 2023-09-25 08:57:00 36.28 kg/m2 [facility] Procedures Procedure Date / Time Performed Performing Clinician Source POCT TEST 2023-09-25 10:41:00 David Pittman [facility] URINALYSIS 2023-09-25 10:30:[address] [facility] URINE DRUG (IMMUNOASSAY) - COMPREHENSIVE DRUG SCREEN W/O REFLEX 2023-09-25 10:30:00 Maicol Pittman [facility] COMP. METABOLIC PANEL ([id number]) 2023-09-25 10:18:00 Maicol Pittman [facility] SALICYLATE 2023-09-25 10:18:00 [facility] 2023-09-25 10:18:00 [facility] COVID-19 (ID NOW RAPID TESTING) 2023-09-25 10:18:00 Maicol Pittman [facility] LAB ONLY COVID INTERPRETATION 2023-09-25 10:18:00 Maicol Pittman [facility] Encounters Start Date/Time End Date/Time Encounter Type Admission Type Attending [facility] Care Department Encounter ID Source 2021-10-25 20:50:00 Inpatient [facility] [id number] [facility] 2021-10-25 20:50:00 Inpatient [facility] [id number] [facility] 2023-09-25 03:59:00 2023-09-26 03:59:00 Emergency Maicol Pittman [facility] [id number] [facility] 2023-09-25 03:59:00 2023-09-26 03:59:00 Emergency X VIRGIL SMALL [facility] ERT [id number] [facility] 2023-04-17 14:38:00 2023-04-19 11:18:00 Emergency EM Ian Llanes [facility] [id number] [facility] 2023-03-19 13:30:05 2023-03-19 13:30:05 Outpatient SFA SFA [id number] Han Hardy 2023-01-04 11:17:49 2023-01-04 11:17:49 Outpatient SFA SFA [id number] Han Hardy 2023-01-01 15:12:05 2023-01-01 15:12:05 Outpatient SFA SFA [id number] Han Hardy 2022-11-26 17:44:00 2022-11-27 09:04:00 Emergency EM Mervin Tadeo [facility] KAI [id number] [facility] 2022-09-21 06:59:00 2022-09-21 07:50:00 Emergency EM Nain Nuñez [facility] [id number] [facility] 2022-09-20 23:00:00 2022-09-21 04:30:00 Emergency EM Kelly Weaver [facility] [id number] [facility] 2022-09-20 17:22:00 2022-09-20 18:45:00 Emergency EM Fanta Brannon [facility] [id number] [facility] 2022-09-19 21:59:00 2022-09-20 06:49:00 Emergency E SOFY REED [facility] [id number] [facility] 2021-11-16 05:24:00 2021-11-16 05:24:00 Outpatient MARTITA_DO [facility] [id number] [facility] 2021-11-16 05:24:00 2021-11-16 05:24:00 Outpatient GONZALEZ_DO SANDEEP__ [facility] [id number] [facility] 2021-10-26 00:00:00 2021-10-26 00:00:00 Outpatient PAOLA COLBERT [facility] [id number] [facility] 2021-08-11 23:37:00 2021-08-12 12:17:00 Emergency E AMILCAR RYAN [facility] [id number] [facility] 2021-02-21 14:27:00 2021-02-24 20:00:00 Emergency [facility] [id number] [facility] 2021-02-18 17:31:00 2021-02-18 18:33:00 Emergency E ELY BOCANEGRA [facility] [id number] [facility] 2021-02-17 18:45:00 2021-02-17 22:21:00 Emergency E BELKYS LOPEZ [facility] 7525 [facility] 2020-11-27 07:31:00 2020-11-27 10:45:00 Emergency E SHAREE MIDDLETON [facility] 7523 [facility] 2020-08-26 08:19:00 2020-08-26 10:57:00 Emergency E BERHANE DUENAS BL [facility] 7522 [facility] 2020-08-02 09:11:00 2020-08-02 15:53:00 Emergency E ORLIN BURTON BL [address] 75[address] [facility] 2020-04-04 09:44:00 2020-04-04 13:26:00 Emergency E DOE OGDEN BL [facility] 7520 [facility] 2019-11-21 09:08:00 2019-11-21 09:40:00 Emergency E SANDEE STEPHEN [facility] 7519 [facility] 2019-11-20 15:16:00 2019-11-20 19:11:00 Emergency E JAYCE IRWIN BL BL 75[address] [facility] 2019-11-04 13:36:00 2019-11-04 15:40:00 Emergency E JAYCE IRWIN [facility] 7517 [facility] 2019-08-11 10:44:00 2019-08-11 10:44:00 Emergency E BL [facility] 7516 [facility] 2019-02-04 08:19:00 2019-02-04 08:19:00 Emergency E [facility] 7515 [facility] 2019-01-14 10:54:00 2019-01-14 10:54:00 Emergency E BL BL 7514 [facility] 2018-10-29 08:32:00 2018-10-29 08:32:00 Emergency E [facility] 7513 [facility] Results Test Description Test Time Test Comments Results Result Comments Source Salicylate 10:47:14 SALICYLATE<10mg/L2023 5:47 AM CDTUTMB LABORATORY SERVICESTherapeutic Range: ? Analgesic and Antipyretic Use ? 20-100 mg/L ? ? Anti-Inflammatory Use ? 100-250 mg/L Toxic Range: ? Greater than 300 mg/L [facility] ETHANOL 10:47:09 ALCOHOL<10mg/dL09/25/19 5:47 AM CDTUTMB LABORATORY SERVICESToxic Greater than or equal to 80 mg/dL. NOTE: Whole blood values are approximately 10% to 15% lower than serum and plasma. [facility] ([id number])2023-09-25 10:46:48* Test Item Value Reference Range Interpretation Comme nts NA (test code = 6310073365) 137 mmol/L 135-145 K (test code = 9453129334) 3.6 mmol/L 3.5-5.0 CL (test code = 3828424578) 101 mmol/L 98-108 CO2 TOTAL (test code = 5829191474) 26 mmol/L 23-31 AGAP (test code = 3160490434) 10 2-16 BUN (test code = 3777184217) 5 mg/dL 7-23 L GLUCOSE (test code = 6032766780) 93 mg/dL 70-110 CREATININE (test code = 2160-0) 0.64 mg/dL 0.50-1.04 TOTAL BILI (test code = 0558199787) 0.7 mg/dL 0.1-1.1 CALCIUM (test code = 5359790728) 10.0 mg/dL 8.6-10.6 T PROTEIN (test code = 3910286892) 8.0 g/dL 6.3-8.2 ALBUMIN (test code = 8291088273) 5.0 g/dL 3.5-5.0 ALK PHOS (test code = 4604616852) 58 U/L 34-122 ALTv (test code = 1742-6) 15 U/L 5-35 AST(SGOT) (test code = 7405179929) 32 U/L 13-40 eGFR (test code = 76179-8) 116.9 mL/min/1.73m2 CKD-EPI eGFR (2020). Assuming creatinine has been stable day-to-day for at least three months, the eGFR indicates Category G1 (>= 90 mL/min/1.73 m2) Lab Interpretation (test code = 45108-3) Abnormal [facility] [id number] 10:43:00* Test Item Value Reference Range Interpretation Comme nts POCT PREG (test code = 1605) Negative On board controls acceptable with C Line (test code = 3574) Yes POCT PREG LOT # (test code = 3579) 130451 POCT PREG TEST DATE ( test code = 3576) 08/06/2024 Lab Interpretation (test cod e = 41792-7) Normal [facility] [id number] 18:48:00* Test Item Value Reference Range Interpretation Comme nts COVID 19 INHOUSE AG (test co de = [id number]) NEGATIVE NEGATIVE URINALYSIS [id number] 16:30:00* Test Item Value Reference Range Interpretation Comme nts UA COLOR (test code = COLU) Light-Yellow YELLOW UA APPEARANCE (test code = APPU) Cloudy CLEAR A IS THE SAMPLE FROM ER OR L&D?Y IF THE ANSWER IS NO,PLEASE DOCUMENT TWO RN SIGNATURES HERE- by WERNER.LL 04/17/23 1629 UA BILIRUBIN DIPSTICK (test code [...] #/LPF FEW Urine Source? Clean CatchUR HCG [id number] 16:30:00* Test Item Value Reference Range Interpretation Comme nts UR HCG QUAL (test code = HCGQLU) NEGATIVE This HCGQL test is NOT applicable for MALE patients.Check with nurse about probable order error.If Tumor Marker Test needed, nurse should order test "HCGTU"(Test #550.09695) Urine Source? Clean CatchDRUGS OF ABUSE SCREEN [id number] 16:30:00* Test Item Value Reference Range Interpretation Comme nts URN COCAINE (test code = COCAURN) NEGATIVE See_Comment [Automated Pocket Videoa ge] The system which generated this result [...] (test code = OPIATURN) NEGATIVE See_Comment [Automated [employer]ocket Video[employer] ge] The system which generated this result [...] as normal/abnormal. Urine Source? Clean CatchBASIC METABOLIC [id number] 16:07:00* Test Item Value Reference Range Interpretation [...] calculation forGFR is based on the CKD-EPI (202) calculation. This formulais race indifferent and is [...] CA) 8.9 mg/dL 8.5-10.1 N HEPATIC FUNCTION [id number] 16:07:00* Test Item Value Reference Range Interpretation [...] reference range due to change in reagent. [id number] 16:07:00* Test Item Value Reference Range Interpretation [...] ANADDITIONAL CHARGE TO THE PATIENT. CBC W/O [id number] 15:53:00* Test Item Value Reference Range Interpretation [...] 10.0 fL 6.7-11.0 N VAGINAL PATHOGENS DNA [id number] 14:00:43* Test Item Value Reference Range Interpretation Comme nts BROOKE SPECIES (test code = ) NEGATIVE NEGATIVE G. VAGINALIS (test code = ) POSITIVE NEGATIVE A T. VAGINALIS (test code = ) NEGATIVE NEGATIVE Note: The BD Counts Include [facility] irm VPIII Microbial Identification Testis a DNA probe test intended for use in the detectionand identification of Brooke species, Gardnerellavaginalis and Trichomonas vaginalis nucleic acid. UNLESS OTHERWISE INDICATED, ALL TESTING PERFORMED AT [facility] [address] [place] [address] DATA WAREHOUSE ADMINISTRATOR: FINN CUEVAS M.D. CLIA NUMBER [id number] [facility] [place]. [id number] HEPATIC FUNCTION [id number] 19:32:00* Test Item Value Reference Range Interpretation [...] code = ALKP) 65 Unit/L 45-117 N [id number] 19:32:00* Test Item Value Reference Range Interpretation Comme nts ALCOHOL (test code = ALC) < 3 MG/DL 0-10 N BASIC METABOLIC [id number] 19:32:00* Test Item Value Reference Range Interpretation [...] 8.5-10.1 N UA RFLX MICR CULT IF [id number] 19:23:00* Test Item Value Reference Range Interpretation [...] OF URINE: CLEAN CATCHDRUGS OF ABUSE SCREEN [id number] 19:23:00* Test Item Value Reference Range Interpretation [...] 10,000 - 50,000 2ND & 3RD TRIMESTER [id number] 19:10:00* Test Item Value Reference Range Interpretation Comme nts MAGNESIUM (test code = MAG) 1.7 MG/DL 1.8-2.4 L CBC W/AUTO [id number] 18:58:00* Test Item Value Reference Range Interpretation [...] NO DIFF/SCN CRITERIA - CT HEAD/BRAIN W/O [id number] 02:38:00 [facility] 1985 Sex: F Patient Name: MARSHALL,LUIS ENRIQUE Unit No: [id number] EXAMS: CPT CODE: [id number] CT HEAD/BRAIN W/O CONT 25170HMJF: - CT HEAD/BRAIN W/O CONT HISTORY: Headache. TECHNIQUE: Axial tomograms through the brain wereobtained without intravenous contrast. This exam was performed according to our departmental dose-optimization program, which includes automated exposure control, adjustment of the mA and/or kV according to patient size and/or use of iterative reconstruction technique. COMPARISON: None available time of interpretation. FINDINGS: There is no intracranial hemorrhage, or mass effect. The ventricularsystem and sulci are age-appropriate. The osseous structures and orbits, show no significant abnormalities. The visualized sinuses are relatively clear. The soft tissues are unremarkable. IMPRESSION:No evidence of acute intracranial abnormality or hemorrhage. at 0238 Reported and signed by: Temo Bowedn MD CC: Kelly Weaver MD Technologist: Jim Hurd CTDI: DLP: Trnscrpt: 09/21/2022 (0238) t.SDR.MKM4 [facility] NAME: LUIS ENRIQUE MARSHALL41 [address] PHYS: SHUN. - Kelly Weaver MD [place] [id number] : 1985 AGE: 36 SEX: F LOC: [facility] PHONE #: [phone] EXAM DATE: 09/21/2022 STATUS: REG ER FAX #: [phone] RAD #: D/C DT PAGE 1 Signed Report Patient Name: LUIS ENRIQUE MARSHALL Unit No: [id number] EXAMS: CPT CODE: [id number] CT HEAD/BRAIN W/O CONT 89446 (Continued) Orig Print D/T: S: 09/21/2022 (0241) [facility] NAME: LUIS ENRIQUE MARSHALL [id number] [address] PHYS: SHUN. [place] [address] : 1985 AGE: 36 SEX: F LOC: [facility] PHONE #: [phone] EXAM DATE: 09/21/2022 STATUS: REG ER FAX #: [phone] RAD #: D/C DT PAGE 2 Signed ReportComplete Blood Count Auto Diff 2021-10-25 23:10:00* Test Item Value Reference Range Interpretation [...] code = NRBCP) 0 % Comprehensive Metabolic [id number] 23:10:00* Test Item Value Reference Range Interpretation [...] ode = ALP) 56 U/L 46-116 N [id number] 23:10:00* Test Item Value Reference Range Interpretation Comme nts Acetaminophen (test code = ACET) < 0.2 mg/dL Interpretive Com ment: Therapeutic range: 1.0-2.0 mg/dl Toxic concentration 4 hours post ingestion: >15.0 mg/dl Toxic concentration 12 hours post ingestion: >4.0 mg/dl Ethanol [id number] 23:10:00* Test Item Value Reference Range Interpretation Comme nts Ethanol (test code = ETOH) 4 mg/dL The pharmacologi jonn response to blood alcohol levels mayvary from individual to individual. The fatal concentrationhas been reported to be >400mg/dL. [id number] 23:10:00* Test Item Value Reference Range Interpretation Comme nts Salicylate (test code = ELOY) < 3.0 mg/dL 0.3-10.0 N Salicylate is to xic above 30 mg/dL for adults. UA, Urinalysis Rflx [id number] 22:42:00* Test Item Value Reference Range Interpretation Comme nts Color,Urine (test code = UCOL) Yellow Yellow Clarity,Urine (test code = UCLAR) Clear Clear Ph, Urine (test code = UPH) 6.5 5.0-9.0 N Specific [place],Urine (test code = USG) >= 1.030 1.005-1.030 [...] (test code = HCGU) Negative Negative Urine [id number] 22:42:00* Test Item Value Reference Range Interpretation Comme nts RBC,Urine (test code = URBCUF) None Seen /HPF 0-2 WBC,Urine (test code = UWBCUF) 6-10 /HPF 0-5 A Epithelial Cell,Urine (test code = UECUF) 0-5 /HPF 0-5 Casts,Urine (test code = UCASTUF) 0-5 /LPF None Seen Bacteria,Urine (test code = UBACTUF) None Seen /hpf None Seen UF REFLEXUF REFLEXDrug Screen,[id number] 22:42:00* Test Item Value Reference Range Interpretation [...] = UPROP) Negative Negative Sars-CoV-2/FLU A/B RSV [id number] 20:38:00* Test Item Value Reference Range Interpretation [...] Result:) Negative by RT-PCR COVID 19 INHOUSE [id number] 21:02:00* Test Item Value Reference Range Interpretation Comme nts COVID 19 INHOUSE AG (test co de = [id number]) NEGATIVE NEGATIVE BASIC METABOLIC [id number] 16:13:00* Test Item Value Reference Range Interpretation [...] CA) 8.9 mg/dL 8.5-10.1 N HEPATIC FUNCTION [id number] 16:13:00* Test Item Value Reference Range Interpretation [...] due to change in reagent. HCG SERUM [id number] 16:13:00* Test Item Value Reference Range Interpretation Comme nts HCG SERUM QUAL (test code = HCGQL) NEGATIVE NEGATIVE This HCGQL test is NOT applicable for MALE patients.Check with nurse about probable order error.If Tumor Marker Test needed, nurse should order test "HCGTU"(Test #550.38669) [id number] 16:13:00* Test Item Value Reference Range Interpretation Comme nts ACETAMINOPHEN (test code = ACET) < 0.2 mg/dL 1.0-3.0 L [id number] 16:13:00* Test Item Value Reference Range Interpretation Comme nts SALICYLATE (test code = ELOY) < 3.0 mg/dL 2.8-20.0 N [id number] 16:13:00* Test Item Value Reference Range Interpretation [...] ANADDITIONAL CHARGE TO THE PATIENT. BASIC METABOLIC [id number] 16:05:00* Test Item Value Reference Range Interpretation [...] code = CA) mg/dL 8.5-10.1 HEPATIC FUNCTION [id number] 16:05:00* Test Item Value Reference Range Interpretation [...] code = ALKP) IUnit/L 45-117 HCG SERUM [id number] 16:05:00* Test Item Value Reference Range Interpretation Comme nts HCG SERUM QUAL (test code = HCGQL) NEGATIVE NEGATIVE This HCGQL test is NOT applicable for MALE patients.Check with nurse about probable order error.If Tumor Marker Test needed, nurse should order test "HCGTU"(Test #550.99279) [id number] 16:05:00* Test Item Value Reference Range Interpretation Comme nts ACETAMINOPHEN (test code = ACET) mg/dL 1.0-3.0 [id number] 16:05:00* Test Item Value Reference Range Interpretation Comme nts SALICYLATE (test code = ELOY) mg/dL 2.8-20.0 [id number] 16:05:00* Test Item Value Reference Range Interpretation Comme nts ALCOHOL (test code = ALC) mg/dL 0.0-3.0 URINALYSIS [id number] 16:05:00* Test Item Value Reference Range Interpretation [...] Urine Source? Clean CatchDRUGS OF ABUSE SCREEN [id number] 16:05:00* Test Item Value Reference Range Interpretation Comme nts URN COCAINE (test code = COCAURN) NEGATIVE See_Comment [Automated messa ge] The system which generated this result transmitted reference range: <300 ng/mL. The reference range was not used to interpret this result as normal/abnormal. URN CANNABINOIDS (test code = CANNABURN) NEGATIVE See_Comment [Automated [employer] jv] The system which generated this result transmitted reference range: <50 ng/mL. The reference range was not used to interpret this result as normal/abnormal. URN AMPHETAMINE (test code = AMPHETURN) NEGATIVE See_Comment [Automated [employer] vj] The system which generated this result transmitted reference range: <1000 ng/mL. The reference range was not used to interpret this result as normal/abnormal. URN BARBITURATE (test code = BARBITURN) NEGATIVE See_Comment [Automated [employer] jv] The system which generated this result [...] (test code = OPIATURN) NEGATIVE See_Comment [Automated [employer] ge] The system which generated this result [...] this result as normal/abnormal. Urine Source? [facility] W/O [id number] 16:01:00* Test Item Value Reference Range Interpretation [...] = MPV) 10.6 fL 6.7-11.0 N URINALYSIS [id number] 15:58:00* Test Item Value Reference Range Interpretation [...] Urine Source? Clean CatchDRUGS OF ABUSE SCREEN [id number] 15:58:00* Test Item Value Reference Range Interpretation Comme nts URN COCAINE (test code = COCAURN) NEGATIVE See_Comment [Automated [email or web address]] The system which generated this result transmitted reference range: <300 ng/mL. The reference range was not used to interpret this result as normal/abnormal. URN CANNABINOIDS (test code = CANNABURN) NEGATIVE See_Comment [[email or web address]] The system which generated this result transmitted [...] Notes Date/Time Note Provider Source 2023-09-26 03:40:45 tZyCH4XG0FjccdGB3kAgAn/0cHJcUsyuhgvLU41 F+yVsMrUqeLieyENHODroZNp+9089-15-45T05: 40:45 [facility] transporting pt to [facility]. Aox4, rr even and unlabored on ra, skin warm and dry. No IV access. Ambulatory with steady gait [place] [address]-8Psdtuexmw department QeixMQ2592-60-60X88:43:11[facility] NoteTXT1.2.840.216400.1.13.104.2.7.2.72 7879|[id number] for patient atbn95635-9YcotVCCIISZYJWBNjrdubhco C-CDA narrative [id number]'Nikwa T Dumes RN[id number] KRZWKWJFVLCVVGZCGCV6449-84-46C87:43:111 .2.840.151087.1.72.3.15|1.2.840.671721. 1.13.104.2.7.2.727879_[id number] Pepe Lara Iglesiatylor RN [facility] 2023-09-26 03:05:00 x+m3tO0kRoQh/w+g7/iRK8kCp7kNX+U9CDlrTuM /qEPK4LYxgm2mlGFucsrfFcsU3174-11-06S08: 05:00 Per [facility], ambulance is in route 35466-8Mwjzbolvx department SzolFN8342-84-15Y35:23:24Emergency department NoteTXT1.2.840.784355.1.13.104.2.7.2.72 7879|[id number] for patient fdjc09427-7SrzjWKJXFMWWEWUQfrtpdadg C-CDA narrative ikwc399529593Vmgak D Peterson RN[id number] VQVMRBFKHEBXCEGTCBD0781-02-02C46:23:241 .2.840.907845.1.72.3.15|1.2.840.380982. 1.13.104.2.7.2.727879_[id number] Nicky Sethi RN [facility] 2023-09-25 23:12:36 xGA8VwKRpSGYk4mrO8QSiUDfkRSkJQIMcNaLNoA /TSoiLlBqJI8FeRRsDQuOTVBd5429-83-68D18: 12:36 Images from the original note were not included.[facility] Case Note09/25/2023 11:12 PMSigned MOT faxed to [facility] SYLVIE Pickett notified of [facility] [email or web address] [address]-2Szdttvrpi department EzjqRJ6065-46-24V02:13:03[facility] department NoteTXT1.2.840.465377.1.13.104.2.7.2.72 7879|[id number] for patient fvpo59248-3Jlklvncin department NoteLNNARRATIVEFormatted C-CDA narrative giaj683710169Sazgyji Howard [address] VfuaSomxgzktlSkrklssttJHBC7838186936LLS XACURARYSVEKDDTPSEL1100-38-44T30:13:031 .2.840.820575.1.72.3.15|1.2.840.087772. 1.13.104.2.7.2.727879_[id number] Mina Modi [facility] 2023-09-25 23:00:04 77j1eQUgdTiprdQGfg4yTfgguXMVeOyQA4lZdNn +wCm2y0KacCGF+OD8qdiKbzmw4504-37-56Y74: 00:04 Images from the original note were not included.[facility] Case Note09/25/2023 11:00 PMGEMS Updated ETA:3 HoursMONICA LockeSocial [facility] Office [email or web address] [address]-4Lpvdyqokq department TeqaWZ0648-54-37C54:00:21[facility] department NoteTXT1.2.840.160852.1.13.104.2.7.2.72 7879|[id number] for patient pmal13079-4Jmgtsctrq department NoteLNNARRATIVEFormatted C-CDA narrative [address] WsbkJcsmfwheqGgpawpdlzKRLS5583712128FDV ZEQTNOVNAPUVYTNQZQM2953-76-69O28:00:211 .2.840.396143.1.72.3.15|1.2.840.236107. 1.13.104.2.7.2.727879_[id number] [facility] 2023-09-25 22:56:13 aF41DBFpoQoQv5r0zWPP9J7IAAr/kNamJC+e51Z 3Tiy3R3iRwTI8DGQq8EtMAA450325-26-66C29: 56:13 Images from the original note were not included.[facility] Case Note:09/25/2023 10:56 PMTransportation arranged via GEMS .Patient name: Luis Enrique AndersonRN: [id number] date: 09/25/2023GEMS ETA: TBDAMBULANCE SCHEDULING FORMYour current date/time is: September 25, 2023 10:50 PMPlease choose the facility where the patient is currently located: [facility] what date does the patient need to be picked up? 09/25/2023oes the patient need to be picked up [...] Christa Locke call-back number with extension, please: [phone] is the discharge diagnosis? R45.851 Suicidal ideation (primary encounter diagnosis)Where is the [facility] ([facility] [address] [place] [address] 6City / State / Zip: [place] [phone] phone number at this location: payment DetailsPlease select your form of payment: Contract-[facility] Hollywoodsician Certification StatementSection I - General InformationWhat is the patient's contract number?Patient's WAN (pre-authorization number)?Transport Date: 09/25/2023Origin: [facility] 121Destination: [employer] [address] [address]Faskjlh appropriate facility: YesIf no, why is transport [...] (i.e., seated during transport, without a medical staff services manager or monitoring?) NoIn addition to completing questions [...] signing the ambulance service s claim: NoDischarge Auxiliary Plant Operator Signature: Electronically signed by MONICA Locke 09/25/2023 10:53 PMIs there anything else you'd like us to know concerning this patient?N/MONICA RamirezSocial [facility] Office [email or web address] [address]-8Wrpkyftrg department NpzhOU0809-58-92B59:57:02[facility] NoteTXT1.2.840.658023.1.13.104.2.7.2.72 7879|[id number] for patient rfnx32170-2Dydqrmegw department NoteLNNARRATIVEFormatted C-CDA narrative text[id number] QCUQMTIVJPKZBGEPXDL3377-57-76A36:57:021 .2.840.983727.1.72.3.15|1.2.840.942709. 1.13.104.2.7.2.727879_[id number] [facility] 2023-09-25 22:33:20 b0E66BaPjJrZ0Ux2zXrMYG54dD/MksguukPzyAp erZLoy61s65zs/mcLyiHnO5u+2202-32-34U38: 33:20 Nurse to nurse given to Valeria at [facility]. Pending acceptance 69599-1Kgxfmptvj department TyyfSI0174-06-81K56:33:54[facility] NoteTXT1.2.840.322104.1.13.104.2.7.2.72 7879|[id number] for patient vpug76540-8ZbvcDDLAHHXXFMHKgsdpcvvj C-CDA narrative text[id number] KJUQIZINERNTKSEIDIS5727-72-84K32:33:541 .2.840.451077.1.72.3.15|1.2.840.375415. 1.13.104.2.7.2.727879_[id number] [facility] 2023-09-25 19:41:34 AJDCHMDjcmvbiZfrfPHFxz/OkANqiZhj0TLMEH0 jHJNtVNV4wuwJWX1OAyxNlIqr5115-01-88H71: 41:34 Problem: Suicide, Risk ofGoal: Absence of self-harmOutcome: Progressing as expected 40149-3Bphn of care enkbAU7188-92-10Q44:41:38Plan of care noteTXT1.2.840.427843.1.13.104.2.7.2.72 7879|[id number] for patient luxy61584-1GxweRSSAHHGOIYPRfxezjrll C-CDA narrative textUT[address] BngaNcgcundkqLjgucckhaRAUD1227351302JGR NVBCZAEAHOWCHROBFDT8054-45-45F54:41:381 .2.840.177156.1.72.3.15|1.2.840.830546. 1.13.104.2.7.2.727879_[id number] [facility] 2023-09-25 18:53:39 69jlovyQ3cxbbqcMQJPxGO7gdb2D01RZCqJImyH jW5wENManuTN6qhP0/S5CTJvB4368-08-46G93: 53:39 Nurse ReportReport given to SYLVIE Victoria. Chief complaint, assessment findings, infusion verify and orders reviewed. Plan of care discussed at bedside with patient and both nurses. Patient/family [place] [address]-3Ktmorkjiy department OamuIW0388-41-34A04:53:48Emergen department NoteTXT1.2.840.899177.1.13.104.2.7.2.72 7879|[id number] for patient pdkv44589-3GtvtLMMSBRJEBYMRyofytqyk C-CDA narrative yozt599035110Oaffwp Anibal Vitor RN[id number] GDZTUHPKSMIHZHSAISV0406-76-97W59:53:481 .2.840.838755.1.72.3.15|1.2.840.879038. 1.13.104.2.7.2.727879_[id number] Mali Adler RN [facility] 2023-09-25 11:36:33 RsKrN5yc7DhaWbfNiQVxXz3taxkDLIg+JOYCE/rTHh wiGXWsfhNmzM/iGLtwJRK0RZJ8814-39-09J52: 36:33 Pt returned to room 121 [address] [place] [address] PD explaining to pt need for staying in pt room until placement can be found. 24716-6Seymuldyn department DrwtEO7050-49-98X76:37:18Emermcgehee hospitalcy department NoteTXT1.2.840.591925.1.13.104.2.7.2.72 7879|[id number] for patient nljy31048-1YcsbBCSHWMMAITGCqncvqnoc C-CDA narrative mczq205677959Qvadw M McCoy RNUT[address] [id number] POJGSDMDBJTKALDFUTQ8258-73-78F47:37:181 .2.840.413658.1.72.3.15|1.2.840.982196. 1.13.104.2.7.2.727879_[id number] Carmenza Christopher RN [facility] 2023-09-25 11:35:34 sqOQE2wS3absGL6fX6VEJK5aOVBViw64C5B7Yfc gBsOe9Xku5LzdF0E2BZTsguEO7652-69-76M55: 35:34 Pt walked out of room into lobby and was non verbal when advised to return to room. Due to safety concerns I was advised to not follow patient. Pt was returned to room by [place] police. [address]-8Bvcxze[address] VyvvKC1080-71-75V72:39:46[facility] department NoteTXT1.2.840.300968.1.13.104.2.7.2.72 7879|[id number] for patient xlkp61923-0Rtdbzcrvl[address] [place] [address] NoteLNNARRATIVEFormatted C-CDA narrative jxec715132701Ofnif C Marque[address] LkodGkwfyrjkzJxmsvorqqMOFL5134627445BXN VMNEEMFGGTYMIHEVFQM1755-04-16Y80:39:461 .2.840.658744.1.72.3.15|1.2.840.684200. 1.13.104.2.7.2.727879_[id number] Yamel Fernández [facility] 2023-09-25 11:33:00 XhS3XVS37H0VJw3hN89ol5YbDJztpvb+rgJmdLK Wi6zQKytslKFvvbAQmltuCM8V1354-62-09M72: 33:00 Pt ambulatory out of ED room at this time, not responding to verbal redirection. Pt. Refuses to stay in ED room per [facility] policy/procedures. [place] PD aware of difficulties with pt, not able to help due to no FILOMENA in place. [address]-8Ltwelsbmj[address] GwirXA6555-96-36B61:36:56[facility] department NoteTXT1.2.840.802813.1.13.104.2.7.2.72 7879|[id number] for patient ebmj01722-1VhadUKKHLDANXZMIbqrovfap C-CDA narrative textUT[address] TpabStzksqhcuGjdmgkyazMDYH3260817895IZT UKKRBUUZOVKDQBRNNNH0147-76-75D14:36:561 .2.840.692939.1.72.3.15|1.2.840.167444. 1.13.104.2.7.2.727879_[id number] [facility] 2023-09-25 09:50:55 B5QgKme5dFPBzDggm7kiVkkPFatxMDKOZhk1zmo evnuhKeiSdu8ZFfMF7LRspiGv7398-51-35T45: 50:55 Psychiatric Re-Evaluation NoteEmergency DepartmentDate: September 25, 2023I have reassessed the patient on this shift.The patient states or demonstrates that they are still having:Suicidal ideation or thoughts: YesHomicidal ideation or thoughts: NoAuditory and/or visual hallucinations: NoPsychosis, paranoia, or other mental instability impairing normal decision making: NoSuggested risk level of [place]: LowOn reassessment, the patient should still be [...] PatchhydrOXYzine (ATARAX) tablet 50 mgLynda MD Geovanny 15014-1Mzwkftwjx department WqlnDL5735-03-69J86:52:15[facility] department NoteTXT1.2.840.387220.1.13.104.2.7.2.72 7879|[id number] for patient fywa88912-9KemeTLULJGVNUAFHqckxzffq C-CDA narrative textEMCARE EMERGENCY PHYSICIAN STAFFEMCARE EMERGENCY PHYSICIAN STAFFUT07 [address]ala [id number] ECGVWJYVYLPRDOODCLN1008-19-11Z69:52:151 .2.840.214755.1.72.3.15|1.2.840.728237. 1.13.104.2.7.2.727879_[id number] [facility] 2023-09-25 07:09:37 x4F5eXJU3D2cpR61S57M0IrFG2kuxRKUeSQfsHE wN6OfXfdueHYVcT4CaZWqy9Ba9543-89-73U03: 09:37 Patient and family members educated on emergency department behavioral process and precautions. Educated on need for direct observation, removal of belongings, and clearing of room for patient and staff safety. Patient and family given community resources for outpatient treatment and care. 29969-7Nvkw of care plzaLF4934-63-28R55:09:44Plan of care noteTXT1.2.840.189874.1.13.104.2.7.2.72 7879|[id number] for patient enbi36945-3BzscXFCIEIMZGSMCifpihkod C-CDA narrative text[address]TXTX[address]5577555USU IGGHGEUVLSOUGUZHJSZ3211-85-57X56:09:441 .2.840.092070.1.72.3.15|1.2.840.144613. 1.13.104.2.7.2.727879_[id number] [facility] 2023-09-25 06:58:37 UB9HSdCQZE4zbhmngdD73UaOzEf6A5i9pHewROm lxGlXreIUs8VIsZEoyVQNvNfa1589-22-59Y95: 58:37 Report given to Mali MERCER 07586-8Vpedhhayx department VerrDJ3077-89-02B47:58:44[facility] department NoteTXT1.2.840.556673.1.13.104.2.7.2.72 7879|[id number] for patient endm42601-7PenvVITXVTRKTPHUdvdbqvru C-CDA narrative apyb275766524Mqduplnikolas De Jesus RN[address] WzbcHvwdtvygcHadvxzsneFMCK4653525438LNC GGIKQCNQRMSCVEYMBXU2606-13-64Z33:58:441 .2.840.758988.1.72.3.15|1.2.840.227035. 1.13.104.2.7.2.727879_[id number] Mingo De Jesus RN [facility] 2023-09-25 06:52:00 R6SNhNqyIq7jH+mO7EWWZmPMNZ910b6EO3CU5DK yK0H2caanq0r6k+7NQMUIKqUZ9868-95-39F99: 52:00 Jp smalls MD states patient medically cleared, stated they will send out a screener. 35102-6Axlwjqybi department MfkeSY0591-93-01T70:56:29[facility] department NoteTXT1.2.840.419616.1.13.104.2.7.2.72 7879|[id number] for patient qija15633-3IbkyVZAQFTQSMRVFxdkhowkx C-CDA narrative text[address]TXTX7755577555USU SEQYOEEJUPTXZBDNUCH6660-64-53U06:56:291 .2.840.645363.1.72.3.15|1.2.840.451967. 1.13.104.2.7.2.727879_[id number] [facility] 2023-09-25 06:15:00 h91VOAqyCeO+2jH+shyfq05aV7UzEAmXQV0YZwu vKlS909EUJhAjSEOoemsdO/ej2242-69-13M90: 15:00 Patient with campus safety officer within direct view one on one basis. Patient continues to be cooperative with care. No safety needs identified at this time. Patient remains in ED stretcher, resting and calm. Patient remains in stringless paper scrubs. NAD noted. 06827-8Xsyozysks department FvqkUT9893-18-19T10:20:20Emergency department NoteTXT1.2.840.642840.1.13.104.2.7.2.72 7879|[id number] for patient mvba07134-0RcrlVGZDSALGCRBSlweywuhc C-CDA narrative text[address]TXTX[address]5577555USU WZVWBTIJUGIFYWOKYWU5912-79-23Q50:20:201 .2.840.425093.1.72.3.15|1.2.840.404458. 1.13.104.2.7.2.727879_[id number] [facility] 2023-09-25 05:02:39 KuyZnZfzTRyqa1v8kVgY2Lorks6inYUrWuV4dUr ijWoxwKV2rtOV6dDqxBRSLo5y4423-08-99Z34: 02:39 PT HAS ONE LG BLACK DUFFLE BAG AND ONE BLACK BOOK BAG IN DECON AREAPT HAS PERSONAL BELONGINGS BAG IN ED SAFE 94604-1Ckgmnqvud department VsewEJ2067-73-47N95:03:54[facility] department NoteTXT1.2.840.726527.1.13.104.2.7.2.72 7879|[id number] for patient gaac63913-3MdysYBMSZVDAMIEBfylcpfgw C-CDA narrative ckbp192829123Veiyo Jb [id number] TFJOMUGFBVPHXKOAIGU4458-79-93Y37:03:541 .2.840.229584.1.72.3.15|1.2.840.742405. 1.13.104.2.7.2.727879_[id number] Serena Deleon [facility] 2023-09-25 04:56:38 ldTtTHgETLe6flEpk4yPr1Smc2KazFcVzvrx/Tq ia4qds1ZmIC6Vg8DFShaRsJ2l8155-25-16V76: 56:38 Problem: Suicide, Risk ofGoal: Absence of self-harmOutcome: Progressing as expected 73342-3Oqjm of care xlszRI4559-80-89A06:57:01Plan of care noteTXT1.2.840.808750.1.13.104.2.7.2.72 7879|[id number] for patient mxyj34189-8SxgoMWPGGOFMBLESnirzdyvz C-CDA narrative text[address]TXTX[address]5577555USU JYABFSXUZEACVQINJGP9453-56-39O44:57:011 .2.840.719974.1.72.3.15|1.2.840.164594. 1.13.104.2.7.2.727879_[id number] [facility] 2023-09-25 04:32:54 o+PUeNMILN+4lsPe4xul0oEYwIRamLwO09fPD87 ynwrtyLA+Pm7JdE9gf0cYyUM17041-17-34C74: 32:54 Suicide Risk - Assessment and PlanColumbia:1) [...] are there things, anyone or anything (family, cheondoism, pain of ) that have stopped you [...] 2 weeks.c. Consider developing a safety plan. 09915-2Adzplzcwgl + Plan rbqdTS4998-56-97P17:33:08Evaluation + Plan noteTXT1.2.840.745680.1.13.104.2.7.2.72 7879|[id number] for patient frkp07177-7ClwySNNKEQVFNMIIkbvtmyzs C-CDA narrative textEM-EMERGENCY MEDICINE STAFFEM-EMERGENCY MEDICINE STAFFUTMBSheltering Arms Hospital301 University AulyFfroobsakFbabgscteDXWW3426770894DKP MAIIKTOCHXTUYFIOAVP7081-37-78Y82:33:081 .2.840.447453.1.72.3.15|1.2.840.145136. 1.13.104.2.7.2.727879_[id number] EM-EMERGENCY MEDICINE STAFF [facility] 2023-09-25 04:25:34 pQV1mwNKRLo4CXJCbcy/2nzLsQtoybZ59ZBqWN8 6IfY73123ViJfv9jYRImd7SO94578-19-95F76: 25:34 Patient encouraged to use the restroom, denies the need to go at this time, informed on the need for a urine sample. 97018-3Qniesmbzz department QaxcPH9422-57-85K53:26:02Emer[facility] department NoteTXT1.2.840.126141.1.13.104.2.7.2.72 7879|[id number] for patient jmvz87755-7XxgrQIEVEAFJGTLDsnkgvhch C-CDA narrative text[id number] EEDXYADFMNHLNWNISBD4337-32-11P40:26:021 .2.840.129648.1.72.3.15|1.2.840.162199. 1.13.104.2.7.2.727879_[id number] [facility] 2023-09-25 04:15:00 d2E1m2e2xQdt1EduyekihtYJJfQGn7DedIZUPft FiDPs5VQ9At/U+6YQOLJyGKFG1718-59-77G16: 15:00 Patient educated on emergency department behavioral process and precautions. Educated on need for direct observation, removal of belongings, and clearing of room for patient and staff safety. Patient given community resources for outpatient treatment and care. Patient verbalized understanding.Patient with campus safety officer within direct view one on one basis. Patient continues to be cooperative with care. No safety needs identified at this time. Patient remains in ED stretcher, sitting upright. Patient placed in string less paper scrubs. 29666-5Mekyhvexz department BixmRH2766-64-40U94:38:15[facility] department NoteTXT1.2.840.981475.1.13.104.2.7.2.72 7879|[id number] for patient plqf19118-3LjqiJMZRYHWMLIMRsfoprcbu C-CDA narrative textUT[address] ByhgKndgfcjjmInuplbgsiTGES3782099400SPH RORYJZMBMCKPCXTIEBP2572-22-37H85:38:151 .2.840.763177.1.72.3.15|1.2.840.091493. 1.13.104.2.7.2.727879_[id number] [facility] 2023-09-25 04:04:40 4iqD8RtR8h42nYgbKyj53qeW/behxNdVRz7v1IR 5FzIlxuzQTIoedIvtzDAOearX3134-10-83F06: 04:40 Luis Enrique Marshall is a 37 year old female presenting to the ED via EMS with cc of wanting to self harm for the last 3 days. Patient denies any SI plans, reports being homeless, and denies SOB, pain, or physical complaints. Patient denies hx of depression. Patient reports previously wanting to self harm, denies HI. Patient reports no plan. 41917-5Trvttmgia department IraeCA1906-17-64G05:07:35[facility] department NoteTXT1.2.840.072333.1.13.104.2.7.2.72 7879|[id number] for patient abvs06008-2WyopXPNLVWGIGGATlamkszdr C-CDA narrative text86 [address]TXTX7755577555USU YTCHCGGLJRKWPDSZNVQ2665-31-14G42:07:351 .2.840.003428.1.72.3.15|1.2.840.115423. 1.13.104.2.7.2.727879_[id number] [facility] 2023-09-25 03:55:53 x5nCalQJU8anWqSXs9MRdddKQOWrkWYW7ZQsb6L gS28Eu87u4nywfts3AgbgTVd84100-86-99L52: 55:53 Luis Enrique Marshall is a 37 year old female who reports to the ER with c/o SI. [facility] reports patient had someone call at a fast food restaurant. Pt originally c/o abd pain but under further investigation, pt states"I am homeless and I have no where to go". Pt then told [facility] she is suicidal to "come off the streets".Pt denies PMH. 17188-3Dkcvqfjek department Triage cbxyNC8145-44-29T07:57:00[facility] department Triage noteTXT1.2.840.316974.1.13.104.2.7.2.72 7879|[id number] for patient czka92056-2Tzpfcibbi department NoteLNNARRATIVEFormatted C-CDA narrative xddc156586355Zhndke Norris RNUT07 [address] StreetTXTX7755577555USU CHNNBXJEDHHDJTSDWBQ0914-66-87Z87:57:001 .2.840.987744.1.72.3.15|1.2.840.878005. 1.13.104.2.7.2.727879_[id number] Miranda Mccallum RN [facility] 2023-04-17 16:10:00 C04303086064CQzqMP5zDU1+r57D4Mpf19VgVNf 13FR2ZsWAlu2JBrYmNIKWuAbRtITctzz+o9Og20 23-04-17T16:10:00 [facility]EM[facility] PROVIDER REPORTREPORT#:[id number] REPORT STATUS: SignedDATE:04/17/23 TIME: 1610 PATIENT: LUIS ENRIQUE MARSHALL UNIT #: [id number]#: [id number] ROOM/BED:AGE: 37 SEX: F PCP PHYS: No [...] Documented: Result Date Time Pulse Ox 99 10/17 1439 B/P 116/80 04/17 1439 B/P Mean [...] pH (5.0 - 8.0) 5.5 Ur Specific [place] (1.001 - 1.035) 1.008 Urine Protein (NEGATIVE [...] 04/17 1439 O2 Delivery Room air 04/17 143 Temp 36.7 04/17 143 Pulse 92 04/17 1439 Resp 16 04/17 [...] Time 1001 )( Date 04/19/23 at 1001RPT #:[id number] OF REPORTEDEmergency department srehgu3782-65-97Q69:10:00V.[id number] -[id number] for patient fwysRWVAIVTYVCQPUQ6460-77-24B24:46:41 [facility] 2023-04-17 16:08:00 [id number] C6EoK9TDywAz7P+dbsR/2PyoAaRIVFMsc34ep96 23-04-17T16:08:[id number] [facility] PATIENT NAME: LUIS ENRIQUE MARSHALL ADMIT DATE: 04/17/23ACCOUNT NO: [id number] ROOM NO: AGE: 37 REPORT TYPE: eEKG REPORT SEX: F DATE OF : [birth year]ADMITTING PHYSICIAN: ATTENDING PHYSICIAN: Order:[id number] Reason : Test Date/Time Stamp:SunApr 17 2023 [...] at 1023 PATIENT NAME: LUIS ENRIQUE MARSHALL .[id number] for patient hpzxAIGLBWRFLOLDRF2617-38-20L76:23:32 [facility] 2022-09-21 07:19:00 [id number] a4WwNNk3ni7Ynskv1NmqqdWjEMS8bfco5DFT+20 21-09-22T07:19:00 [facility]EMERGENCY PROVIDER REPORTREPORT#:[id number] REPORT STATUS: SignedDATE:09/21/22 TIME: 07 PATIENT: LUIS ENRIQUE MARSHALL UNIT #: [id number]#: [id number] ROOM/BED:AGE: 36 SEX: F PCP PHYS: No Primary or Family PhysicianSERVICE AUTHOR: Nain Nuñez MD LOCATION: [facility] * ALL edits or amendments must be made on the electronic/computer document * HPI-General Illness GeneralConfirmed Patient YesInitial Greet Date/Time 09/21/22 0659 PresentationChief Complaint __ (head pain)Hx Obtained From Patient Free Text HPI NotesFree Text HPI NotesNicole Joanna is a 36-year-old woman who presents ER with headache. She states she is in the head months ago. She had a CT scan of her head earlier today which was unremarkable. Patient seems to be somewhat homeless and is asking for assistance to get to another part of the city. I informed patient that she could talk to the police department about to oncology social work intake as they have had some luck [...] Headache. Past Medical History - AdultStated Complaint ESP-KEABIBWL-QUWCRCFI-COUGH-DIARRHEAAll ergiesCoded Allergies:No Known Allergies (02/21/21) Home MedicationsActive [...] Result Date Time Pulse Ox 98 09/21 0602 B/P 119/78 09/21 0702 B/P Mean 91 09/21 0702 O2 Delivery Room air 09/21 701 Temp 98.1 09/21 701 Pulse 104 09/21 07 Resp 18 09/21 701 Last Documented: Result Date Time Pulse Ox 98 09/21 0702 B/P 119/78 09/21 0702 B/P Mean 91 09/21 0702 O2 Delivery Room air 09/21 701 Temp 98.1 09/21 701 Pulse 104 09/21 07 Resp 18 09/21 701 Review of Vital Signs Reviewed Basic Physical [...] behind TM purulent, External canal red, External decorating machine tender, Ext canal foreign body, Discharge purulent, Discharge bloody, Ext canal cerumen impact, Mastoid area red, Mastoid area tender, [place] red, [place] tender. Left Ear/Mastoid Negative: Tympanic membrane red, Tympanic membrane bulging, Tympanic memb perforated, Tympanic memb retracted, Bullous myringitis, Fluid behind TM clear, Fluid behind TM purulent, External canal red, External decorating machine tender, Ext canal foreign body, Discharge purulent, Discharge bloody, Ext canal cerumen impact, Mastoid area red, Mastoid area tender, [place] red, [place] tender. Interpretation Diagnostics Lab Results InterpretationConsiderations Reviewed [...] 09/21 0702 O2 Delivery Room air 09/21 701 Temp 98.1 09/21 701 Pulse 104 09/21 0702 Resp 18 09/21 0702 Last Documented: Result Date Time Pulse Ox 98 09/21 0702 B/P 119/78 09/21 0702 B/P Mean 91 09/21 0702 O2 Delivery Room air 09/21 07 Temp 98.1 09/21 07 Pulse 104 09/21 0702 Resp 18 09/21 07 All vital signs available at the time [...] Impacted EarwaxReferralsProvider Referral: Gita Christensen MD Address: [address] [place] [address] Departure FormsWEST PCP LISTWORK/SCHOOL EXCUSE-CAREGIVER 2 at 1037RPT #:[id number] OF REPORTEDEmergency department zsulyo7501-26-64D45:19:00Z.[id number] -[id number] for patient srnnKJLLSGMLHCILOW9837-85-21A77:37:35 [facility] 2022-09-21 01:57:00 [id number]+RCd+[id number] 4MqdD4YEWvky5qCDijldstqxdGD7zDs6FRYwo74 21-09-22T01:57:00 [facility] ([facility])EMERGENCY PROVIDER REPORTREPORT#:[id number] REPORT STATUS: SignedDATE:09/21/22 TIME: 156 PATIENT: LUIS ENRIQUE MARSHALL UNIT #: [id number]#: [id number] ROOM/BED:AGE: 36 SEX: F PCP PHYS: No Primary or Family PhysicianSERVICE AUTHOR: Kelly Weaver MD LOCATION: [facility] * ALL edits or amendments must be made on the electronic/computer document * HPI-Head Prob/Injury GeneralInitial Greet Date/Time 09/20/222324 PresentationChief Complaint HEADACHEHx Obtained From Patient)( Onset Occurred Gradual, Days agoSymptom Duration Waxes and wanesProgression since Onset Waxes and wanesCaused by No trauma by historyLocation DIFFUSEQuality AchingRadiation Does not radiateSeverity: Onset MildSeverity: Current MildAssociated withReports: Headache, Nausea. Denies: Abdominal pain, Dizziness, Neck pain, Vomiting. Associated Other Pt denies other symptomsExacerbated by NothingRelieved by Nothing Risk-Head Prob/Injury Risk Stratification)( Hudson Coma Score: Copyright Sir Bill Romero Copyright [...] intracranial abnormality or hemorrhage. Impression By: Candis Bowden MD Imaging StatementRadiographic studies reviewed and [...] in stable condition with prescription.Time of Re-Eval 0327Re-Eval Status Improved ED CourseMedication(s) OrderedMedication(s) Ordered:Central Nervous System Agents Sig/Afua Start time Last Medication Dose Route Stop Time Status Admin Acetaminophen 1,000 MG X1ED STA 09/21 0156 DC 09/21 PO 09/21 015 0243 Gastrointestinal Drugs Sig/Afua Start time Last Medication Dose Route Stop Time Status Admin Ondansetron HCl 4 MG X1ED STA 09/21 0156 DC 09/21 PO 09/21 156 0242 Patient Discharge Departure Vital Signs/ConditionVital SignsFirst Documented: Result Date Time Pulse Ox 100 09/20 2308 B/P 122/73 09/20 2308 B/P Mean 89 09/20 2308 O2 Delivery Room air 09/21 2307 Temp 36.8 09/21 2307 Pulse 100 09/21 2307 Resp 18 09/21 2307 Last Documented: Result Date Time Pulse Ox 100 09/21 2307 B/P 122/73 09/21 2307 B/P Mean 89 09/21 2307 O2 Delivery Room air 09/21 2307 Temp 36.8 09/21 2307 Pulse 100 09/21 2307 Resp 18 09/21 2307 All vital signs available at the time of this entry have been reviewed. Condition Stable Clinical ImpressionClinical ImpressionPrimary Impression: Headache Disposition DecisionDischarge )( Discharged to Home Yes )( Time 0327 )( Date 09/21/22 Discharge/Care PlanCounseled Regarding Diagnosis, [...] or with physician of your choiceReferralsProvider Group: [facility] Follow-Up: 2-3 Days Address: [address] [place] [address] [place] [address] Discharge NoteI have spoken with the patient [...] or a call to 911. at 0841RPT #:[id number] OF REPORTEDYakima Valley Memorial Hospital department [id number] for patient [id number]:15 [facility] 2022-09-20 18:30:00 [id number] 21-09-21T18:30:00 [facility] ([facility])EMERGENCY PROVIDER REPORTREPORT#:[id number] REPORT STATUS: SignedDATE:09/20/22 TIME: 1829 PATIENT: LUIS ENRIQUE MARSHALL UNIT #: [id number]#: [id number] ROOM/BED:AGE: 36 SEX: F PCP PHYS: No Primary or Family PhysicianSERVICE AUTHOR: Elvis Rodrigez NP LOCATION: [facility] * ALL edits or amendments must be [...] requesting to have a Tylenol 3 or [place] for pain. Patient denies past medical history [...] 120 09/20 1724 Resp 16 09/20 1724 Review of Vital Signs Reviewed Focused PEGeneral/Const [...] 100 On: Room air Interpretation Interpreted by me, Pulse oximetry normal Time 1724 Re-Evaluation MDM Free Text MDM NotesFree Text [...] Admin Ibuprofen 600 MG X1ED STA 09/20 1830 DC 09/20 PO 09/20 1831 1833 Patient Discharge Departure Vital Signs/ConditionVital [...] 120 09/20 1724 Resp 16 09/20 1724 All vital signs available at the time of this entry have been reviewed. Condition Stable Clinical ImpressionClinical ImpressionPrimary Impression: Dental cariesSecondary Impressions: Pain, dental Disposition DecisionDischarge )( Discharged to Home Yes )( Time 184 )( Date 09/20/22 Discharge/Care PlanCounseled Regarding Diagnosis, Prescriptions, Need for follow-up, When to returnto ED(Auto) PrescriptionsCurrent Visit ScriptsIBUPROFEN (MOTRIN) 600 MG PO TID PRN PRN PAIN 5 Days #15 TABS Prescriptions Reviewed Risks, Benefits, Alternative treatmentPatient Instructions ED Dental Cavity, ED Dental PainDeparture FormsLOW COST OR FREE CLINICSNORTHER[facility] Discharge NoteI have spoken with the patient [...] for BP f/u < 4wk Fanta Brannon 09/22/22 2207:Past Medical History - AdultHome MedicationsActive ScriptsIBUPROFEN (MOTRIN) [...] 09/21/22 Patient Discharge Departure Discharge/Care PlanReferralsResource Referral: [facility] Address: [address] [place] [id number] Supervising Physician Note MidLv Saw Pt AloneI have reviewed the PA/SPINNERET PERSON's note and plan of care. I was available for consultation as needed at all times during the patient's visit in the emergency department. I agree with the clinical impression, plan and disposition. at 2219 at 4018RPT #:[id number] OF REPORTEDEmernorthwest medical center department [id number]:[id number] for patient [id number] [facility]
[2023-10-18] MEDS ORDERED: DIAZEPAM 10 MG/2 ML INJ SYRINGE ONE (23:17)
[2023-10-18] MEDS ORDERED: DIPHENHYDRAMINE 50 MG/ML VIAL ONE (23:17)
[2023-10-18] MEDS ORDERED: NA CHLORIDE 0.9% 1,000 ML ONE (23:18)
[2023-10-18 23:31] LABS: Absolute Basophils 0.1 K/uL (0-0.5); Absolute Lymphocytes (CBC) 1.9 K/uL (0.7-4.9); Absolute Monocytes 0.8 K/uL (0.1-1.3); Absolute Neutrophil 10.2 K/uL (1.8-8.0); Basophils % 0.5 % (0-1.3); Eosinophils % 0.2 % (0-4.4); Hematocrit 36.1 % (36.0-45.0); Hemoglobin 12.3 g/dL (12.0-15.0); Lymphocytes % 14.5 % (15.3-44.8); MCH 33.1 pg (27.0-35.0); MCHC 34.1 g/dL (32.0-36.0); MCV 97.2 fL (80-100); MPV 8.4 fL (7.6-11.3); Monocytes % 6.1 % (3.3-12.3); Neutrophils % 78.7 % (41.7-73.7); Nucleated Red Blood Cells % 0.1 % (0-0); Platelets 314 thou/uL (152-406); RBC Red Blood Cell Count 3.72 M/uL (3.86-4.86); Red Cell Distribution Width 12.8 % (12.1-15.2)
[2023-10-18 23:45] LABS: PT Prothrombin Time 11.8 SECONDS (9.5-12.5); PTT, Activated Partial Thromb 30.2 SECONDS (24.3-36.9); Protime INR 1.07
[2023-10-18 23:50] LABS: ALT/SGPT 25 U/L (13-56); Albumin 3.6 g/dL (3.4-5.0); Albumin/Globulin Ratio 0.9 (1.1-1.8); Alkaline Phosphatase 64 U/L (45-117); BUN Blood Urea Nitrogen 8 mg/dL (7-18); Bicarbonate 21 mEq/L (21-32); Bilirubin Total 0.3 mg/dL (0.2-1.0); Globulin 3.9 g/dL (2.3-3.5); Glomerular Filtration Rate 87 ml/min (=/>90); Glucose Level 86 mg/dL (74-106); Protein, Total 7.5 g/dL (6.4-8.2); Sodium Level 136 mEq/L (136-145)
[2023-10-18 23:51] LABS: AST/SGOT 36 U/L (15-37); Bilirubin Direct < 0.1 mg/dL (0-0.2); Bilirubin Indirect, Calculated ND mg/dL (0.2-0.8)
[2023-10-18] MEDS ORDERED: KETAMINE HCL IN 0.9 % NACL 50 MG/5 ML SYRINGE IV ONE (23:51)
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
[2023-10-19] MEDS ORDERED: ACETAMINOPHEN 500 MG TAB ONE (03:45)
[2023-10-19 04:52] LABS: Specific Gravity > 1.030 (1.005-1.030); Sqamous Epithelial <5 /HPF (None Seen); Urine Bacteria None Seen /HPF (<20); Urine Bilirubin NEGATIVE (Negative); Urine Blood Negative (Negative); Urine Clarity Clear (Clear); Urine Color Light-Yellow (Yellow); Urine Culture Reflex Order NOT NEEDED; Urine Glucose NEGATIVE (Negative); Urine Ketones 1+ (Negative); Urine Microscopic Reflex YN ORDER UMIC; Urine Nitrite NEGATIVE (Negative); Urine Protein NEGATIVE (Negative); Urine RBC <5 /HPF (None Seen); Urine Urobilinogen Normal (Normal); Urine WBC <5 /HPF (<5); Urine Yeast (Budding) Trace /HPF (None Seen); Urine pH 5.5 (5.0-7.0)
[2023-10-19 04:53] LABS: Specific Gravity > 1.030 (1.005-1.030)
[2023-10-19 04:57] LABS: Barbiturates NEGATIVE (NEGATIVE); Benzodiazepines NEGATIVE (NEGATIVE); Cocaine NEGATIVE (NEGATIVE); METHAMPHETAM POSITIVE (NEGATIVE); Methadone NEGATIVE (NEGATIVE); Opiates NEGATIVE (NEGATIVE); Phencyclidine NEGATIVE (NEGATIVE); THC Cannibis NEGATIVE (NEGATIVE)
[2023-10-19 11:42] VITALS: BP 103/55; TEMP 98.5; O2SAT 100
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
--- NOTE | 2023-10-21 21:08 | RAD REPORT ---
EXAM DESCRIPTION: RAD - Ankle Left 3 View - 10/19/2023 12:05 am CLINICAL HISTORY: Injury TECHNIQUE: Frontal, lateral and oblique views of the left ankle. COMPARISON: No relevant prior studies available. FINDINGS: Bones/joints: Unremarkable. No acute fracture. No dislocation. Soft tissues: Unremarkable. IMPRESSION: No acute injury. Electronically signed by: Sharan Deshpande MD 10/19/2023 12:26 AM CDT Due to temporary technical issues with the PACS/Fluency reporting system, reports are being signed by the in house radiologists without review as a courtesy to insure prompt reporting. The interpreting radiologist is fully responsible for the content of the report.
== END 2023-10-19 07:01 | disposition home or self-care (01) ==
LOC: ER 23:03
DX: Z04.1 Encounter for examination and observation following transport accident (principal)
CPT/HCPCS: 36415; 70450; 71260; 72125; 74177; 80048; 80076; 80143; 80179; 80307; 81001; 81025; 82077; 85025; 85610; 85730; 93005; 96361; 96374; 96375; 99285; J1200; J3360; J7030; Q9967

== ENCOUNTER 2023-10-20 00:07 | Emergency (ER) | payer SELFPAY ==
--- OUTSIDE RECORDS SUMMARY | 2023-10-20 00:12 | XMS REPORT | Continuity of Care Document ---
Author Name Unknown Address [address] [facility] [address] [place] [address] [facility] thconnect Address [address] [facility]. [address] [place] [address] Care Team Providers Care Helicopter Utility Aircrewman Name Role Phone PCP, PATIENT DOES NOT HAVE A Primary Care Physic sahil Unavailable Maicol Pittman MD Attending Clinician [phone] Virgil Small MD Attending Clinician [phone] VIRGIL SMALL Attending Clinician Unavailab Ian Tripp [...] Unavail able PAOLA CORNELL Admitting Clinician Unavailab lois Payers Payer Name Policy Type Policy Number Effective Date Expirati on Date Source [facility] (PPO) [id number] [facility] [id number] Problems Condition Name Condition Details Condition Category Status Onset Date Resolution Date Last Treatment Date Treating Clinician Comments Source Boil of vulva Boil of vulva Disease Active 09-26 00:00: 00 [facility] Depression Depression Disease Active 08-03 00:00: 00 Overview: Formattin g of this note might be different from the original. bipolor [facility] Morbid obesity, unspecifie d obesity type Morbid obesity, unspecifie d obesity type Disease Active 08-03 00:00: 00 [facility] Allergies, Adverse Reactions, Alerts Allergy Name Allergy Type Status Severity Reaction(s) Onset Date Inactive Date Treating Clinician Comments Source No Known Allergie s DA Active U 2022-07 0-17 00:00: 00 [facility] No Known Drug Allergie s DA Active U 4-26 00:00: 00 [facility] No Known Allergie s DA Active U 8-23 00:00: 00 [facility] No Known Allergie s DA Active U 0 8-23 00:00: 00 [facility] NO KNOWN ALLERGIE S Drug Class Active [facility] Social History Social Habit Start Date Stop Date Quantity Comments Source History of tobacco use Cigarette Smoker [facility] History of Social function 2019-01-09 00:00:00 2019-01-09 00:00:00 [facility] Alcohol intake 2018-10-30 00:00:00 2018-10-30 00:00:00 Current drinker of alcohol (finding) [facility] Alcohol Comment 2017-10-26 00:00:00 2017-10-26 00:00:00 social [facility] Cigarettes smoked current (pack per day) - Reported 2016-08-03 00:00:00 2016-08-03 00:00:00 [facility] Tobacco use and exposure 2016-08-03 00:00:00 2016-08-03 00:00:00 Smokeless tobacco non-user [facility] Sex Assigned At 1985 00:00:00 1985 00:00:00 [facility] Smoking Status Start Date Stop Date Source Smokes tobacco daily 2016-08-03 00:00:00 [facility] Medications Ordered Medication Name Filled Medication Name Start Date Stop Date Current Medication? Ordering Clinician Indication Dosage Frequency Signature (SIG) Comments Components Source ALPRAZolam (XANAX) tablet 2 mg 09-24 16:15: 00 09-24 16:18 :00 No 2mg 2 mg, Oral, ONCE, 1 dose, On Sun09/25/23 at 1115, JEF [facility] nicotine (NICODERM) 21 mg/24 hr patch 1 Patch 09-24 15:15: 00 Yes 1{patch } 1 Patch, Topical, Administer over 24 Hours, Q24H, First dose on Sun09/25/23 at 1015, Until Discontinu ed, Routine [facility] hydrOXYzine (ATARAX) tablet 50 mg 09-24 15:00: 00 09-24 15:12 :00 No 50mg 50 mg, Oral, ONCE, 1 dose, On Sun09/25/23 at 1000, JEF [facility] LURASIDONE HCL (LATUDA ORAL) 10-30 13:49: 15 Yes Take by mouth. [facility] hydrOXYzine 50 mg tablet 10-30 13:49: 15 Yes 837 50mg Take 50 mg by mouth daily. [facility] medroxyPROG ESTERone (DEPO-PROVE RA) injection 150 mg 10-26 16:15: 00 Yes [id number] 150mg [facility] Immunizations Ordered Immunization Name Filled Immunization Name Date Status Comments Source Influenza Virus Vaccine Quad .5 mL IM 6+ MO (FLUZONE/FLULAVAL/FL UARIX) Unknown Completed [facility] Vital Signs Vital Name Observation Time Observation Value Comments Michelle saunders Systolic blood pressure 2023-09-26 08:43:00 136 mm[Hg] [facility] Diastolic blood pressure 2023-09-26 08:43:00 78 mm[Hg] [facility] Heart rate 2023-09-26 08:43:00 84 /min [facility] Respiratory rate 2023-09-26 08:43:00 20 /min [facility] Oxygen saturation in Arterial blood by Pulse oximetry 2023-09-26 08:43:00 99 /min Ovalo o f [facility] Body temperature 2023-09-25 23:20:00 36.67 Rossy [facility] Body weight 2023-09-25 08:57:00 98.884 kg [facility] BMI 2023-09-25 08:57:00 36.28 kg/m2 [facility] Procedures Procedure Date / Time Performed Performing Clinician Source POCT TEST 2023-09-25 10:41:00 David Pittman [facility] URINALYSIS 2023-09-25 10:30:00 [facility] URINE DRUG (IMMUNOASSAY) - COMPREHENSIVE DRUG SCREEN W/O REFLEX 2023-09-25 10:30:00 Maicol Pittman [facility] COMP. METABOLIC PANEL (20547) 2023-09-25 10:18:00 Maicol Pittman [facility] SALICYLATE 2023-09-25 10:18:00 [facility] ETHANOL 2023-09-25 10:18:00 Maicol Pittman Un [facility] COVID-19 (ID NOW RAPID TESTING) 2023-09-25 10:18:00 Maicol Pittman [facility] LAB ONLY COVID INTERPRETATION 2023-09-25 10:18:00 Maicol Pittman [facility] Encounters Start Date/Time End Date/Time Encounter Type Admission Type Attending Clinicians Care Facility Care Department Encounter ID Source 2021-10-25 20:50:00 Inpatient [facility] [id number] [facility] 2021-10-25 20:50:00 Inpatient [facility] [id number] [facility] 2023-09-25 03:59:00 2023-09-26 03:59:00 [facility] [id number] [facility] 2023-09-25 03:59:00 2023-09-26 03:59:00 Emergency X VIRGIL SMALL [facility] ERT [id number] [facility] 2023-04-17 14:38:00 2023-04-19 11:18:00 Emergency EM Ian Llanes [facility] [id number] [facility] 2023-03-19 13:30:05 2023-03-19 13:30:05 Outpatient [facility] [id number] [facility] [place] 2023-01-04 11:17:49 2023-01-04 11:17:49 Outpatient SFA SFA [id number] [facility] [place] 2023-01-01 15:12:05 2023-01-01 15:12:05 Outpatient SFA [facility] [id number] [facility] [place] 2022-11-26 17:44:00 2022-11-27 09:04:00 Emergency EM Mervin Tadeo HCAPM KAI [id number] [facility] 2022-09-21 06:59:00 2022-09-21 07:50:00 Emergency EM Nain Nuñez HCAWU KAI [id number] 23 [facility] 2022-09-20 23:00:00 2022-09-21 04:30:00 Emergency EM Kelly Weaver HCAWU KAI [id number] 68 [facility] 2022-09-20 17:22:00 2022-09-20 18:45:00 Emergency EM Fanta Brannon HCAWU KAI [id number] 85 [facility] 2021-11-16 05:24:00 2021-11-16 05:24:00 Outpatient [facility] [id number] [facility] 2021-11-16 05:24:00 2021-11-16 05:24:00 Outpatient [facility] [id number] [facility] 2021-10-26 00:00:00 2021-10-26 00:00:00 Outpatient [facility] [id number] [facility] 2021-02-21 14:27:00 2021-02-24 20:00:00 Emergency EM Bandar Whitt [facility] ERPSY [id number] [facility] Results Test Description Test Time Test Comments Results Result Comments Source Salicylate 10:47:14 SALICYLATE<10mg/L2023 5:47 AM [facility] SERVICESTherapeutic Range: ? Analgesic and Antipyretic Use ? 20-100 mg/L ? ? Anti-Inflammatory Use ? 100-250 mg/L Toxic Range: ? Greater than 300 mg/L [facility] ETHANOL 10:47:09 ALCOHOL<10mg/dL09/25/19 24 5:47 AM [facility] SERVICESToxic Greater than or equal to 80 mg/dL. NOTE: Whole blood values are approximately 10% to 15% lower than serum and plasma. [facility]. METABOLIC PANEL (15883)2023-09-25 10:46:48* Test Item Value Reference Range Interpretation Comme nts NA (test code = 2562534199) 137 mmol/L 135-145 K (test code = 1484914023) 3.6 mmol/L 3.5-5.0 CL (test code = 0563986773) 101 mmol/L 98-108 CO2 TOTAL (test code = 8994264468) 26 mmol/L 23-31 AGAP (test code = 6752293776) 10 2-16 BUN (test code = 0646013117) 5 mg/dL 7-23 L GLUCOSE (test code = 9538665746) 93 mg/dL 70-110 CREATININE (test code = 2160-0) 0.64 mg/dL 0.50-1.04 TOTAL BILI (test code = 6034268579) 0.7 mg/dL 0.1-1.1 CALCIUM (test code = 5263532942) 10.0 mg/dL 8.6-10.6 T PROTEIN (test code = 7896854189) 8.0 g/dL 6.3-8.2 ALBUMIN (test code = 1430014327) 5.0 g/dL 3.5-5.0 ALK PHOS (test code = 4549123017) 58 U/L 34-122 ALTv (test code = 1742-6) 15 U/L 5-35 AST(SGOT) (test code = 1169081955) 32 U/L 13-40 eGFR (test code = 71904-7) 116.9 mL/min/1.73m2 CKD-EPI eGFR (2020). Assuming creatinine has been stable day-to-day for at least three months, the eGFR indicates Category G1 (>= 90 mL/min/1.73 m2) Lab Interpretation (test code = 09299-1) Abnormal [facility] CampusPOMA [id number] 10:43:00* Test Item Value Reference Range Interpretation Comme nts POCT PREG (test code = 1605) Negative On board controls acceptable with C Line (test code = 3574) Yes POCT PREG LOT # (test code = 3575) 130314 POCT PREG TEST DATE ( test code = 3576) 08/06/2024 Lab Interpretation (test cod e = 45714-3) Normal [facility] [id number] 18:48:00* Test Item Value Reference Range Interpretation Comme nts COVID 19 INHOUSE AG (test co de = [id number]) NEGATIVE NEGATIVE URINALYSIS [id number] 16:30:00* Test Item Value Reference Range Interpretation Comme nts UA COLOR (test code = COLU) Light-Yellow YELLOW UA APPEARANCE (test code = APPU) Cloudy CLEAR A IS THE SAMPLE FROM ER OR L&D?Y IF THE ANSWER IS NO,PLEASE DOCUMENT TWO RN SIGNATURES HERE- by VSAVANAH.LL 04/17/23 1629 UA BILIRUBIN DIPSTICK (test code [...] #/LPF FEW Urine Source? Clean CatchUR HCG [id number] 16:30:00* Test Item Value Reference Range Interpretation Comme nts UR HCG QUAL (test code = HCGQLU) NEGATIVE This HCGQL test is NOT applicable for MALE patients.Check with nurse about probable order error.If Tumor Marker Test needed, nurse should order test "HCGTU"(Test #550.49046) Urine Source? Clean CatchDRUGS OF ABUSE SCREEN [id number] 16:30:00* Test Item Value Reference Range Interpretation Comme nts URN COCAINE (test code = COCAURN) NEGATIVE See_Comment [Automated GCI Com] The system which generated this result transmitted reference range: <300 ng/mL. The reference range was not used to interpret this result as normal/abnormal. URN CANNABINOIDS (test code = CANNABURN) NEGATIVE See_Comment [Automated Zuvvu] The system which generated this result transmitted [...] (test code = BARBITURN) NEGATIVE See_Comment [Automated [employer] jv] The system which generated this result [...] (test code = OPIATURN) NEGATIVE See_Comment [Automated [employer] ge] The system which generated this result [...] (test code = METHAURN) NEGATIVE See_Comment [Automated [employer] ge] The system which generated this result transmitted reference range: <300 ng/mL. The reference range was not used to interpret this result as normal/abnormal. Urine Source? Clean CatchBASIC METABOLIC [id number] 16:07:00* Test Item Value Reference Range Interpretation [...] CA) 8.9 mg/dL 8.5-10.1 N HEPATIC FUNCTION [id number] 16:07:00* Test Item Value Reference Range Interpretation [...] reference range due to change in reagent. [id number] 16:07:00* Test Item Value Reference Range Interpretation [...] ANADDITIONAL CHARGE TO THE PATIENT. CBC W/O [id number] 15:53:00* Test Item Value Reference Range Interpretation [...] 10.0 fL 6.7-11.0 N VAGINAL PATHOGENS DNA [id number] 14:00:43* Test Item Value Reference Range Interpretation Comme nts BROOKE SPECIES (test code = 56543) NEGATIVE NEGATIVE G. VAGINALIS (test code = 45513) POSITIVE NEGATIVE A T. VAGINALIS (test code = 15937) NEGATIVE NEGATIVE Note: The [facility] VPIII Microbial Identification Testis a DNA probe test intended for use in the detectionand identification of Brooke species, Gardnerellavaginalis and Trichomonas vaginalis nucleic acid. UNLESS OTHERWISE INDICATED, ALL TESTING PERFORMED AT [facility] [address] [place] [address], [place] [address] PATROL: FINN CUEVAS M.D. CLIA NUMBER [id number] [facility] [place]. [id number] HEPATIC FUNCTION [id number] 19:32:00* Test Item Value Reference Range Interpretation [...] code = ALKP) 65 Unit/L 45-117 N [id number] 19:32:00* Test Item Value Reference Range Interpretation Comme nts ALCOHOL (test code = ALC) < 3 MG/DL 0-10 N BASIC METABOLIC [id number] 19:32:00* Test Item Value Reference Range Interpretation [...] 8.5-10.1 N UA RFLX MICR CULT IF [id number] 19:23:00* Test Item Value Reference Range Interpretation [...] OF URINE: CLEAN CATCHDRUGS OF ABUSE SCREEN [id number] 19:23:00* Test Item Value Reference Range Interpretation [...] 10,000 - 50,000 2ND & 3RD TRIMESTER [id number] 19:10:00* Test Item Value Reference Range Interpretation Comme nts MAGNESIUM (test code = MAG) 1.7 MG/DL 1.8-2.4 L CBC W/AUTO [id number] 18:58:00* Test Item Value Reference Range Interpretation [...] NO DIFF/SCN CRITERIA - CT HEAD/BRAIN W/O [id number] 02:38:00 [facility] : 1985 Sex: F Patient Name: LUIS ENRIQUE MARSHALL Unit No: [id number] EXAMS: CPT CODE: [id number] CT HEAD/BRAIN W/O CONT 86849HLTT: - CT HEAD/BRAIN W/O CONT HISTORY: Headache. [...] Hurd CTDI: DLP: Trnscrpt: 09/21/2022 (0238) [email or web address] [facility] NAME: LUIS ENRIQUE MARSHALL [id number] PHYS: SHUN. [place] [address] : 1985 AGE: 36 SEX: F LOC: [facility] PHONE #: [phone] EXAM DATE: 09/21/2022 STATUS: REG ER FAX #: [phone] RAD #: D/C DT PAGE 1 Signed Report Patient Name: LUIS ENRIQUE MARSHALL Unit No: [id number] EXAMS: CPT CODE: [id number] CT HEAD/BRAIN W/O CONT 75432 (Continued) Orig Print D/T: S: 09/21/2022 (0241) [facility] NAME: LUIS ENRIQUE MARSHALL [id number] PHYS: SHUN. [place] [address] : 1985 AGE: 36 SEX: F LOC: [facility] PHONE #: [phone] EXAM DATE: 09/21/2022 STATUS: REG ER FAX #: [phone] RAD #: D/C DT PAGE 2 Signed ReportComplete Blood Count Auto [id number] 23:10:00* Test Item Value Reference Range Interpretation [...] code = NRBCP) 0 % Comprehensive Metabolic [id number] 23:10:00* Test Item Value Reference Range Interpretation [...] ode = ALP) 56 U/L 46-116 N [id number] 23:10:00* Test Item Value Reference Range Interpretation Comme nts Acetaminophen (test code = ACET) < 0.2 mg/dL Interpretive Com ment: Therapeutic range: 1.0-2.0 mg/dl Toxic concentration 4 hours post ingestion: >15.0 mg/dl Toxic concentration 12 hours post ingestion: >4.0 mg/dl Ethanol [id number] 23:10:00* Test Item Value Reference Range Interpretation Comme nts Ethanol (test code = ETOH) 4 mg/dL The pharmacologi jonn response to blood alcohol levels mayvary from individual to individual. The fatal concentrationhas been reported to be >400mg/dL. [id number] 23:10:00* Test Item Value Reference Range Interpretation Comme nts Salicylate (test code = ELOY) < 3.0 mg/dL 0.3-10.0 N Salicylate is to xic above 30 mg/dL for adults. UA, Urinalysis Rflx Cult/[id number] 22:42:00* Test Item Value Reference Range Interpretation Comme nts Color,Urine (test code = UCOL) Yellow Yellow Clarity,Urine (test code = UCLAR) Clear Clear Ph, Urine (test code = UPH) 6.5 5.0-9.0 N Specific [place],Urine (test code = USG) >= 1.030 1.005-1.030 [...] (test code = HCGU) Negative Negative Urine [id number] 22:42:00* Test Item Value Reference Range Interpretation Comme nts RBC,Urine (test code = URBCUF) None Seen /HPF 0-2 WBC,Urine (test code = UWBCUF) 6-10 /HPF 0-5 A Epithelial Cell,Urine (test code = UECUF) 0-5 /HPF 0-5 Casts,Urine (test code = UCASTUF) 0-5 /LPF None Seen Bacteria,Urine (test code = UBACTUF) None Seen /hpf None Seen UF REFLEXUF REFLEXDrug Screen,[id number] 22:42:00* Test Item Value Reference Range Interpretation [...] = UPROP) Negative Negative Sars-CoV-2/FLU A/B RSV [id number] 20:38:00* Test Item Value Reference Range Interpretation [...] Result:) Negative by RT-PCR COVID 19 INHOUSE [id number] 21:02:00* Test Item Value Reference Range Interpretation Comme nts COVID 19 INHOUSE AG (test co de = [id number]) NEGATIVE NEGATIVE BASIC METABOLIC [id number] 16:13:00* Test Item Value Reference Range Interpretation [...] CA) 8.9 mg/dL 8.5-10.1 N HEPATIC FUNCTION [id number] 16:13:00* Test Item Value Reference Range Interpretation [...] due to change in reagent. HCG SERUM [id number] 16:13:00* Test Item Value Reference Range Interpretation Comme nts HCG SERUM QUAL (test code = HCGQL) NEGATIVE NEGATIVE This HCGQL test is NOT applicable for MALE patients.Check with nurse about probable order error.If Tumor Marker Test needed, nurse should order test "HCGTU"(Test #550.54214) [id number] 16:13:00* Test Item Value Reference Range Interpretation Comme nts ACETAMINOPHEN (test code = ACET) < 0.2 mg/dL 1.0-3.0 L [id number] 16:13:00* Test Item Value Reference Range Interpretation Comme nts SALICYLATE (test code = ELOY) < 3.0 mg/dL 2.8-20.0 N [id number] 16:13:00* Test Item Value Reference Range Interpretation [...] ANADDITIONAL CHARGE TO THE PATIENT. BASIC METABOLIC [id number] 16:05:00* Test Item Value Reference Range Interpretation [...] code = CA) mg/dL 8.5-10.1 HEPATIC FUNCTION [id number] 16:05:00* Test Item Value Reference Range Interpretation [...] code = ALKP) IUnit/L 45-117 HCG SERUM [id number] 16:05:00* Test Item Value Reference Range Interpretation Comme nts HCG SERUM QUAL (test code = HCGQL) NEGATIVE NEGATIVE This HCGQL test is NOT applicable for MALE patients.Check with nurse about probable order error.If Tumor Marker Test needed, nurse should order test "HCGTU"(Test #550.91750) [id number] 16:05:00* Test Item Value Reference Range Interpretation Comme nts ACETAMINOPHEN (test code = ACET) mg/dL 1.0-3.0 [id number] 16:05:00* Test Item Value Reference Range Interpretation Comme nts SALICYLATE (test code = ELOY) mg/dL 2.8-20.0 [id number] 16:05:00* Test Item Value Reference Range Interpretation Comme nts ALCOHOL (test code = ALC) mg/dL 0.0-3.0 URINALYSIS [id number] 16:05:00* Test Item Value Reference Range Interpretation [...] Urine Source? Clean CatchDRUGS OF ABUSE SCREEN [id number] 16:05:00* Test Item Value Reference Range Interpretation Comme nts URN COCAINE (test code = COCAURN) NEGATIVE See_Comment [Automated [employer] ge] The system which generated this result transmitted reference range: <300 ng/mL. The reference range was not used to interpret this result as normal/abnormal. URN CANNABINOIDS (test code = CANNABURN) NEGATIVE See_Comment [Automated [employer] jv] The system which generated this result transmitted reference range: <50 ng/mL. The reference range was not used to interpret this result as normal/abnormal. URN AMPHETAMINE (test code = AMPHETURN) NEGATIVE See_Comment [Automated [employer] jv] The system which generated this result [...] (test code = METHAURN) NEGATIVE See_Comment [Automated [employer] ge] The system which generated this result transmitted reference range: <300 ng/mL. The reference range was not used to interpret this result as normal/abnormal. Urine Source? Clean CatchCBC W/O [id number] 16:01:00* Test Item Value Reference Range Interpretation [...] = MPV) 10.6 fL 6.7-11.0 N URINALYSIS [id number] 15:58:00* Test Item Value Reference Range Interpretation [...] Urine Source? Clean CatchDRUGS OF ABUSE SCREEN [id number] 15:58:00* Test Item Value Reference Range Interpretation [...] Notes Date/Time Note Provider Source 2023-09-26 03:40:45 bWkLM7QT3JrqxgCH2jAvTl/3wJRbThzevvjNT72 F+yVsMrUqeLieyENHODroZNp+4275-79-30L11: 40:45 [facility] transporting pt to [facility]. Aox4, rr even and unlabored on ra, skin warm and dry. No IV access. Ambulatory with [place] [address]-4Ypialiibk department VcbwFA6973-29-47K69:43:11Emergency department NoteTXT1.2.840.488531.1.13.104.2.7.2.72 7879|[id number] for patient aozv12805-8NuitMOMLNKMPGZUNohufergs C-CDA narrative [id number] Leon RN[address] PduhGihbdmmurVwptgaucaULLP2799660238QEA HXSSFMEZJLSEGZBZGSM5435-62-74F00:43:111 .2.840.843631.1.72.3.15|1.2.840.932501. 1.13.104.2.7.2.727879_[id number] Pepe Leon RN [facility] 2023-09-26 03:05:00 x+m7pK6xKhRy/w+g7/nMU1cNe6qBQ+K7BBeiElR /hLCA2SRinu1wcSVxatgdTqiQ8473-64-07U89: 05:00 Per [facility], [place] route [address]-4Ogqozpsry department AufkBC1956-55-55N95:23:24[facility] NoteTXT1.2.840.460408.1.13.104.2.7.2.72 7879|[id number] for patient yqyt71760-2GvvcFHUPTZIMPAWGsqdvsmny C-CDA narrative [id number] D Peterson [facility] [address] HgchRtpmzgqmqJkbjlofezOEIU3257604969VXE DWVAMXHGBAUXVEEAJUV6988-84-37A58:23:241 .2.840.299733.1.72.3.15|1.2.840.266206. 1.13.104.2.7.2.727879_[id number] Nicky Sethi RN [facility] 2023-09-25 23:12:36 oRS8KqFNiUMIi5tuS7GLpKMdgLRzESILzKuELeE /XGpsZhWfJD7HoRPeQStUZCDx4787-25-93H73: 12:36 Images from the original note were not included.[facility] Case Note09/25/2023 11:12 PMSigned [facility] notified of MONICA FoxSocynthia [facility] Office [email or web address] [address]-4Dsumumrxo department HbmuGJ1306-15-63R48:13:03Emerwhite [facility] medical center department NoteTXT1.2.840.737699.1.13.104.2.7.2.72 7879|[id number] for patient zifd05520-2Jhduusogm department NoteLNNARRATIVEFormatted C-CDA narrative [id number] Howard [address]ZpzsIc[id number] DXYUNFNHZMJPFZPAGCX7377-80-40F19:13:031 .2.840.315173.1.72.3.15|1.2.840.338737. 1.13.104.2.7.2.727879_[id number] Mina ANDERSON [facility] 2023-09-25 23:00:04 59b1nEGqeOhyqfJWfn1tHcufrZXIpUrAP0cEuFg +aMk5p1XqbRFQ+QC1gvoEmczw7278-51-94O95: 00:04 Images from the original note were not included.[facility] Case Note09/25/2023 11:00 PMGEMS Updated ETA:3 HoursDeMONICA Segalcynthia [facility] Office [email or web address] [address]-1Vcbrbhhay department BblpZI5528-43-91O05:00:21Emerwhite [facility] center department NoteTXT1.2.840.882595.1.13.104.2.7.2.72 7879|[id number] for patient mezg48488-3Urjqogldj department NoteLNNARRATIVEFormatted C-CDA narrative text47 [place] [id number] ZNYOLDLOWCQJJHSDZDZ1539-43-65R79:00:211 .2.840.012503.1.72.3.15|1.2.840.024142. 1.13.104.2.7.2.727879_[id number] [facility] 2023-09-25 22:56:13 wE73BOTztCsBq5n5zOGQ7Z3CVVh/kNamJC+e51Z 5Cul1Q4bUhAD2DPYx6KsXJE636719-01-90K82: 56:13 Images from the original note were not included.[facility] Case Note:09/25/2023 10:56 PMTransportation arranged via [facility] .Patient name: Luis Enrique AndersonRN: [id number] date: 09/25/2023[facility] ETA: TBDAMBULANCE SCHEDULING FORMYour current date/time is: September 25, 2023 10:50 PMPlease choose the facility where the patient is currently located: [facility] what date does the patient need [...] Christa Locke call-back number with extension, please: [phone] is the discharge diagnosis? R45.851 Suicidal ideation (primary encounter diagnosis)Where is the patient [facility] ([facility] name[facility] address [facility]: [address] [place] [address] [facility] / State / Zip: [place], [place] [address]Yrt phone number at this location: payment DetailsPlease select your form of payment: Contract-[facility]ITALPhysician Certification StatementSection I - General InformationWhat is the patient's contract number?Patient's WAN (pre-authorization number)?Transport Date: 09/25/2023Origin: [facility] 121Destination: Braydon oconnor Ifjwzxsvk[address] [address]Agbvtvh appropriate facility: YesIf no, why is transport [...] seated during transport, without a medical laboratory technician or monitoring?) NoIn addition to completing questions [...] signing the ambulance service s claim: NoDischarge Set Off Press Operator Signature: Electronically signed by MONICA Locke 09/25/2023 10:53 PMIs there anything else you'd like us to know concerning this patient?N/MONICA RamirezSocial [facility] Office [email or web address] [address]-5Mhiuvrzdr department UjgrRH2937-96-06W99:57:02[facility] department NoteTXT1.2.840.132329.1.13.104.2.7.2.72 7879|[id number] for patient ofdz54107-5Qhdoizvci department NoteLNNARRATIVEFormatted C-CDA narrative [address] IqhxL[id number] COKGEREEZFRTXQJIBLW8975-25-63Q36:57:021 .2.840.440009.1.72.3.15|1.2.840.519744. 1.13.104.2.7.2.727879_[id number] [facility] 2023-09-25 22:33:20 z6S06JfMgRiP2Cs0aRpMYT45yO/MksguukPzyAp hsHFvi22a69ls/jtQjeOeC5r+6941-09-11Y77: 33:20 Nurse to nurse given to Valeria at [facility]. Pending acceptance 25232-2Odtiozqqa department RfegBP6438-49-52B83:33:54Emer[facility] department NoteTXT1.2.840.071540.1.13.104.2.7.2.72 7879|[id number] for patient bpoq54026-8ElkbIFHCQSBXVAWUefupljiy C-CDA narrative [id number] XSRZLYBIDUZDCGPCUYE1841-24-54J93:33:541 .2.840.989026.1.72.3.15|1.2.840.201417. 1.13.104.2.7.2.727879_[id number] [facility] 2023-09-25 19:41:34 AJDCHMDjcmvbiZfrfPHFxz/CtOEhbRxc7EBKDY2 oMHOcVNN0chnJGK0LUpcNmBfh4283-41-58W21: 41:34 Problem: Suicide, Risk ofGoal: Absence of self-harmOutcome: Progressing as expected 54524-4Tiub of care nsdkJI4303-45-63I79:41:38Plan of care noteTXT1.2.840.747013.1.13.104.2.7.2.72 7879|[id number] for patient adqk68070-4KougTOJPFKZBMLGWhgayulhv C-CDA narrative [id number] HDSKIXXYGQIKUDUFBWD3844-95-60X96:41:381 .2.840.985580.1.72.3.15|1.2.840.565429. 1.13.104.2.7.2.727879_[id number] [facility] 2023-09-25 18:53:39 07qzyqkH4znlrweMBAOoAZ0fav9V34LMEuUVbxT qA6yUNUnxsIN1lyJ8/X3WIFgI1504-97-26U75: 53:39 Nurse ReportReport given to SYLVIE Victoria. Chief complaint, assessment findings, infusion verify and orders reviewed. Plan of care discussed at bedside with patient and both nurses. Patient/family [place] [address]-5Erjgdxsqd department HxkeSI7930-30-26H36:53:48Emer[facility] department NoteTXT1.2.840.222604.1.13.104.2.7.2.72 7879|[id number] for patient jhyj35176-6FrjnECYDGNCKNCLSceeoojuj C-CDA narrative [id number] M Martin RN[address] MqtwGxvczerfkYslmbvtxiJFOY8352867235IJL YRJXDKPENJKBGMCJFFX7769-95-30B98:53:481 .2.840.259409.1.72.3.15|1.2.840.188415. 1.13.104.2.7.2.727879_[id number] Mali Adler RN [facility] 2023-09-25 11:36:33 SaZcC9xb2JluCjeSeZRrZs0uscnQWVk+/[facility] wiGXWsfhNmzM/sUOzkRFR0COC9462-13-17V32: 36:33 Pt returned to room 121 [address] [place] [address] PD explaining to pt need for staying in pt room until placement can be found. 14572-4Gbfeeckri department JmfwWQ5095-08-53M47:37:18Emer[facility] center department NoteTXT1.2.840.622746.1.13.104.2.7.2.72 7879|[id number] for patient wuvu89995-7XicwZWUKIGEWRHMEfrwfidar C-CDA narrative obmg756723813Hwvtz Anibal Ashwin RN[id number] LHYOJOKYSRFDRFTZSVV4106-82-39R35:37:181 .2.840.976886.1.72.3.15|1.2.840.978527. 1.13.104.2.7.2.727879_[id number] Carmenza Christopher RN [facility] 2023-09-25 11:35:34 yxJUA2zS4edfVP6dQ4WEZK4nIFQGiv66A3M1Myr iVfKa0Eag8LntH9X0BQGrxoMY3213-59-28L61: 35:34 Pt walked out of room into [facility] and was non verbal when advised to return to room. Due to safety concerns I was advised to not follow patient. Pt was returned to room by [place] police. [address]-6Yhxgajbwp department MgjmZH5091-77-14R53:39:46Emer[facility] center department NoteTXT1.2.840.335389.1.13.104.2.7.2.72 7879|[id number] for patient irtw09061-8Gjbsovaxx department NoteLNNARRATIVEFormatted C-CDA narrative [id number] Vela[id number] POWVBTOHGPXTMNOXKBL5458-03-29C32:39:461 .2.840.595826.1.72.3.15|1.2.840.507821. 1.13.104.2.7.2.727879_[id number] Yamel Fernández [facility] 2023-09-25 11:33:00 NeR4MGO51B1ZWs8pN39fd2RuQBmcdqd+rgJmdLK Og9hASfiziMQhrsDJobceNR4H7794-20-89O23: 33:00 Pt ambulatory out of ED room at this time, not responding to verbal redirection. Pt. Refuses to stay in ED room per [facility] policy/procedures. [place] PD aware of difficulties with pt, not able to help due to no FILOMENA in place. 12322-4Gwjmshjjp department VwvgVF0687-72-23X43:36:56Emer[facility] center department NoteTXT1.2.840.637490.1.13.104.2.7.2.72 7879|[id number] for patient qfwt44475-6AceeDFDCPGOYNUUBrwyfgygo C-CDA narrative textUT[address] PssjKcjrvnrruHqurohmclIRYY7663772516WPU MPNNQPFEPZODDYNPEXO3506-65-18Y39:36:561 .2.840.629354.1.72.3.15|1.2.840.639767. 1.13.104.2.7.2.727879_[id number] [facility] 2023-09-25 09:50:55 K2PdMen8yTRRkDcft2prEwnZQeczOEVPTqd6gec iypubLcmQva6FVqQY8JEshbIj3098-62-29X14: 50:55 Psychiatric Re-Evaluation NoteEmernorth metro medical centercy DepartmentDate: September 25, 2023I have reassessed the patient on this shift.The patient states or demonstrates that they are still having:Suicidal ideation or thoughts: YesHomicidal ideation or thoughts: NoAuditory and/or visual hallucinations: NoPsychosis, paranoia, or other mental instability impairing normal decision making: NoSuggested risk level of [place]: LowOn reassessment, the patient should still be [...] PatchhydrOXYzine (ATARAX) tablet 50 mgLynda MD Geovanny 66119-3Djjqgubpg department PordNH3318-53-05U33:52:15Emerwhite [facility] center department NoteTXT1.2.840.731659.1.13.104.2.7.2.72 7879|[id number] for patient zsnw29523-8PnxxJHWEKUZXFSJTxlcpqels C-CDA narrative textEMCARE EMERGENCY PHYSICIAN STAFFEMCARE EMERGENCY PHYSICIAN STAFF[address] ZacuUlxqxiexdAnhdgsyepUHVW3832907987QYB EUFUSOKPPCDLZMFBLJX3973-12-10J09:52:151 .2.840.590574.1.72.3.15|1.2.840.687198. 1.13.104.2.7.2.727879_[id number] [facility] 2023-09-25 07:09:37 p6K7cDHV2K5doD02Y50P2JkBT6kmgBBXmXAjqVO dC9OsMigbxROMaJ4AkFQnt8Xv7834-76-68O49: 09:37 Patient and family members educated on emergency department behavioral process and precautions. Educated on need for direct observation, removal of belongings, and clearing of room for patient and staff safety. Patient and family given [facility] resources for outpatient treatment and care. 03107-7Qzsd of care rxdiXO1292-61-38G43:09:44Plan of care noteTXT1.2.840.455585.1.13.104.2.7.2.72 7879|[id number] for patient bqmm57805-4BveeBWIYEVVNURRLmowgwrud C-CDA narrative text[id number] ZNLYLAHMFGWNFLOSNVI8704-97-90T41:09:441 .2.840.507650.1.72.3.15|1.2.840.313030. 1.13.104.2.7.2.727879_[id number] [facility] 2023-09-25 06:58:37 HF7DAmPDJD6wjuhrxuG72GaOcEv6B1v7pLclXTs yfKyXaeYTx0QMxWOoxCPToLux4230-84-95O33: 58:37 [place] [address]-4Wmkfpexke department PxzcZC2674-60-80V60:58:44[facility] department NoteTXT1.2.840.065287.1.13.104.2.7.2.72 7879|[id number] for patient xvyc67672-8PrciDGJGZHREGSOTambmeimq C-CDA narrative nsii079139607Gktxfnnikolas De Jesus RNUT[id number] LQEAWSVLPYVAGNSGCTW7217-18-39M32:58:441 .2.840.985706.1.72.3.15|1.2.840.713766. 1.13.104.2.7.2.727879_[id number] Mingo De Jesus RN [facility] 2023-09-25 06:52:00 U1TIqJdkNe7uN+lJ0HHTPuVAJV354m7LV7OX0SF bV2K8luoqj7o0b+4MMXNZOhHQ1003-37-06U77: 52:00 Jp smalls MD states patient medically cleared, stated they will send out a screener. 24995-8Ogsybaevs department OrmmEJ9456-93-46S30:56:29Emergency department NoteTXT1.2.840.234502.1.13.104.2.7.2.72 7879|[id number] for patient nfvz33397-4EaujKJDJPMCQVQILoyaxrbis C-CDA narrative text[address] LseyFrbcbmuwwDgatvuekeVHKM4323824029YLQ ISRBVOCKJFRKELGJOZT5984-31-21C43:56:291 .2.840.781086.1.72.3.15|1.2.840.472426. 1.13.104.2.7.2.727879_[id number] [facility] 2023-09-25 06:15:00 i99FOGnkVgH+2jH+abfdn09jO2NiAFaYYT6BFgk eFpF615DSSjYvNNNuckioQ/tz3448-76-90D42: 15:00 Patient with safety grooving machine operator within direct view one on one basis. Patient continues to be cooperative with care. No safety needs identified at this time. Patient remains in ED stretcher, resting and calm. Patient remains in stringless paper scrubs. NAD noted. 50095-6Jdsjxndrz department DbtaEK3623-30-97P79:20:20Emer[facility] department NoteTXT1.2.840.943106.1.13.104.2.7.2.72 7879|[id number] for patient irkk11703-4HdigZGHIQWSYLLBRhdybkijm C-CDA narrative text[id number] IHHRHRRRATRCTSZJGBF9320-28-40L76:20:201 .2.840.609748.1.72.3.15|1.2.840.248460. 1.13.104.2.7.2.727879_[id number] [facility] 2023-09-25 05:02:39 LwqRjSwlQVujd4l2fDhW2Lnqjq4crGKhHbJ2fIv isMimbJE2yhZK3pTosHXVZv8w6062-77-02J74: 02:39 PT HAS ONE LG BLACK DUFFLE BAG AND ONE BLACK BOOK BAG IN DECON AREAPT HAS PERSONAL BELONGINGS BAG IN ED SAFE 28721-2Ebjnuorjb department SnqeGL3036-09-71G57:03:54[facility] department NoteTXT1.2.840.076663.1.13.104.2.7.2.72 7879|[id number] for patient pnwj37771-1FvdrAPCYDYXHUDIHkxjqgnot C-CDA narrative wdzx958692882Wlxle A JonesUT51 Rich [id number] LMZTRECDBLXZWFAWQGG0131-35-12W23:03:541 .2.840.958573.1.72.3.15|1.2.840.966350. 1.13.104.2.7.2.727879_[id number] Serena Deleon [facility] 2023-09-25 04:56:38 mqHdILeDSHr3voRiz8dRw5Alr2FrnWeWwezv/Tq ij1cfh3AdOA5Eu0IRQfcKyF8j2492-55-06Q90: 56:38 Problem: Suicide, Risk ofGoal: Absence of self-harmOutcome: Progressing as expected 76623-2Josi of care zghqVX4502-05-10G90:57:01Plan of care noteTXT1.2.840.523478.1.13.104.2.7.2.72 7879|[id number] for patient sice77107-4CnmpPOJQVYNYBVZTvnarweaq C-CDA narrative textUT[address] HwmdQdnchytnyQwiavuuovBWKU4029237645MAX LYZHZKHJUXMGPXQEXPB7049-61-62V71:57:011 .2.840.085588.1.72.3.15|1.2.840.592504. 1.13.104.2.7.2.727879_[id number] [facility] 2023-09-25 04:32:54 o+PUeNMILN+2asQf1hnm1eJDaAXruWyT52fDQ14 ynwrtyLA+Xp3AcV8ai9sXuWA54335-50-72G90: 32:54 Suicide Risk - Assessment and PlanColumbia:1) [...] are there things, anyone or anything (family, gnosticism, pain of ) that have stopped you [...] 2 weeks.c. Consider developing a safety plan. 32204-6Qqczdczexc + Plan sqphYT6489-13-16L15:33:08Evaluation + Plan noteTXT1.2.840.946880.1.13.104.2.7.2.72 7879|[id number] for patient hvac10392-3HwyaIHISGIWNWBFSiajwhxwx C-CDA narrative textEM-EMERGENCY MEDICINE STAFFEM-EMERGENCY MEDICINE STAFF[address] FueuYzyqxpnxgSxmgjywknNOPT5094661654YZS DUUMXVQLFTDFCHOSMQL4705-33-02X78:33:081 .2.840.165444.1.72.3.15|1.2.840.283905. 1.13.104.2.7.2.727879_[id number] EM-EMERGENCY MEDICINE STAFF [facility] 2023-09-25 04:25:34 fMH3kbLDYDm1OCBRhsf/1ghAdEvzuzZ39TGsCM5 6NiU13750JiAcc1vFPVym6MS32376-64-73E51: 25:34 Patient encouraged to use the restroom, denies the need to go at this time, informed on the need for a urine sample. 90584-1Xmpxfvirt department FaqqMU5886-65-39R36:26:02[facility] NoteTXT1.2.840.195908.1.13.104.2.7.2.72 7879|[id number] for patient auhh54369-3UxnbQDKHNPVVTYARdgvvmssu C-CDA narrative text[id number] DCWONOCYDFKYDKYTPSB6796-20-79E66:26:021 .2.840.244033.1.72.3.15|1.2.840.658891. 1.13.104.2.7.2.727879_[id number] [facility] 2023-09-25 04:15:00 q9O9l6n7vJct2IzavqemxyUCJlMPm0ScfQKMCqb QlRQw9OQ1Mr/U+4TLERUjSAZM9489-77-17X38: 15:00 Patient educated on emergency department behavioral process and precautions. Educated on need for direct observation, removal of belongings, and clearing of room for patient and staff safety. Patient given community resources for outpatient treatment and care. Patient verbalized understanding.Patient with safety grooving machine operator within direct view one on one basis. Patient continues to be cooperative with care. No safety needs identified at this time. Patient remains in ED stretcher, sitting upright. Patient placed in string less paper scrubs. 78727-3Kezwvgkga department RrlfMF5415-03-27D25:38:15[facility] NoteTXT1.2.840.990088.1.13.104.2.7.2.72 7879|[id number] for patient gnfs50094-0HeccBWOPSHJTKVFWeahfdruy C-CDA narrative [id number] RIZEBCRUBHQWAHSTXZF8964-19-67F37:38:151 .2.840.930469.1.72.3.15|1.2.840.242977. 1.13.104.2.7.2.727879_[id number] [facility] 2023-09-25 04:04:40 1stQ1YeJ5c19bZekVip95zcM/juxgOrBYp3r8OX 9NhGbiwlGYRqmhGzwhAVRqfxP3935-73-97Y05: 04:40 Luis Enrique Marshall is a 37 year old female presenting to the ED via EMS with cc of wanting to self harm for the last 3 days. Patient denies any SI plans, reports being homeless, and denies SOB, pain, or physical complaints. Patient denies hx of depression. Patient reports previously wanting to self harm, denies HI. Patient reports no plan. 91596-4Thewansdj department OmxiJP0176-17-83U47:07:35Emergency department NoteTXT1.2.840.339070.1.13.104.2.7.2.72 7879|[id number] for patient eigf31064-2JmmbRJLWJEYPJHSWtitibjif C-CDA narrative text[address] VnjrEslofegqrFlxozbnbxZAJP7391421711DNU FJDZTQWUYBWMCLMXYIQ1042-70-01Z25:07:351 .2.840.684073.1.72.3.15|1.2.840.329187. 1.13.104.2.7.2.727879_[id number] [facility] 2023-09-25 03:55:53 h3gArwHHX0xvInONe2SQxwkXRBEroOBL8YEwc9N bO02As03s0zyicqk7HzbmQHt71498-70-66T46: 55:53 Luis Enrique Marshall is a 37 year old female who reports to the ER with c/o SI. [facility] reports patient had someone call at a fast food restaurant. Pt originally c/o abd pain but under further investigation, pt states"I am homeless and I have no where to go". Pt then told [facility] she is suicidal to "come off the streets".Pt denies PMH. 79884-0Lrwwoghwe department Triage bofiZY0342-78-56E45:57:00[facility] Triage noteTXT1.2.840.236887.1.13.104.2.7.2.72 7879|[id number] for patient ggpo76571-9Vgavdncqq department NoteLNNARRATIVEFormatted C-CDA narrative plys094888494Bkbhad Norris RNUT[address] LqyxOsnvfcvgbKphfstjrwBBQM3933593314EFC ANYCTLWBNNOMSBJNHBS7857-60-58D81:57:001 .2.840.957748.1.72.3.15|1.2.840.562811. 1.13.104.2.7.2.727879_[id number] Miranda Mccallum RN [facility] 2023-04-17 16:10:00 Z89891525078OQujYQ1cJH5+v30C5Mks95MxHWd 17FS7HjPLtl8CFlWtTAWZsDmZdMBjpqa+o9Og20 23-04-17T16:10:00 [facility] PROVIDER REPORTREPORT#:[id number] REPORT STATUS: SignedDATE:04/17/23 TIME: 1609 PATIENT: LUIS ENRIQUE MARSHALL UNIT #: [id number]#: [id number] ROOM/BED:AGE: 37 SEX: F PCP PHYS: No [...] pH (5.0 - 8.0) 5.5 Ur Specific [place] (1.001 - 1.035) 1.008 Urine Protein (NEGATIVE [...] Pulse 92 04/17 143 Resp 16 04/17 143 Last Documented: Result Date Time Pulse Ox [...] Time 1001 )( Date 04/19/23 at 1001RPT #:[id number] OF REPORTEDEmergency department cmpcgm0813-67-17S26:10:00V.UNYW56188871 -0774AVAvailable for patient luegAVBSEPMINVRTAW3435-38-82I03:46:41 [facility] 2023-04-17 16:08:00 Y40008132086P2Fqq24VBbUGitK5c2hxhrZh083 M2NoH5GZprPb8X+dbsR/2HdyEcGMDLQnt26ey10 23-04-176:08:759325-6463 [facility] PATIENT NAME: LUIS ENRIQUE MARSHALL ADMIT DATE: 04/17/23ACCOUNT NO: [id number] ROOM NO: AGE: 37 REPORT TYPE: eEKG REPORT SEX: F DATE OF : 85ADMITTING PHYSICIAN: ATTENDING PHYSICIAN: Order:[id number] Reason : Test Date/Time Stamp:SunApr 17 2023 [...] at 1023 PATIENT NAME: LUIS ENRIQUE MARSHALL .LKR851 55822-4123UJSlqffyvzz for patient chttASDHRYMFXLKAIE6004-71-44H01:23:32 [facility] 2022-09-21 07:19:00 E37808300297nlwuWIOKPbe0Bgp7W4p9b776sWu d2LqWGx6dn3Ahxav4TveaeTsUPB2ydcj9FRJ+20 21-09-22T07:19:00 [facility] ([facility])EMERGENCY PROVIDER REPORTREPORT#:[id number] REPORT STATUS: SignedDATE:09/21/22 TIME: 718 PATIENT: LUIS ENRIQUE MARSHALL UNIT #: [id number]#: [id number] ROOM/BED:AGE: 36 SEX: F PCP PHYS: No Primary or Family PhysicianSERVICE AUTHOR: Nain Nuñez MD LOCATION: [facility] * ALL edits or amendments [...] talk to the police department about to school social worker intake as they have had some luck [...] Headache. Past Medical History - AdultStated Complaint NOA-UDVRVYLT-HHXIRCUS-COUGH-DIARRHEAAll ergiesCoded Allergies:No Known Allergies (02/21/21) Home MedicationsActive [...] behind TM purulent, External canal red, External swift tender, Ext canal foreign body, Discharge purulent, Discharge bloody, Ext canal cerumen impact, Mastoid area red, Mastoid area tender, Brawley red, Brawley tender. Left Ear/Mastoid Negative: Tympanic membrane red, Tympanic membrane bulging, Tympanic memb perforated, Tympanic memb retracted, Bullous myringitis, Fluid behind TM clear, Fluid behind TM purulent, External canal red, External swift tender, Ext canal foreign body, Discharge purulent, Discharge bloody, Ext canal cerumen impact, Mastoid area red, Mastoid area tender, Brawley red, Brawley tender. Interpretation Diagnostics Lab Results InterpretationConsiderations Reviewed [...] Impacted EarwaxReferralsProvider Referral: Gita Christensen MD Address: [address] [place] [address] [address] [place] [address] Departure FormsWEST PCP LISTWORK/SCHOOL EXCUSE-CAREGIVER 2 at 1037RPT #:[id number] OF REPORTEDEmergency department chvmrr6772-92-40O01:19:00Z.HFKO43605605 -0055AVAvailable for patient zcesPCZIZUIVCVSIMR7987-05-69R38:37:35 [facility] 2022-09-21 01:57:00 [id number]+RCd+3zsC4Ek90BzCxq 0MvtS2ZHMhch5sDOgrpoqgijeQA7oLy8GHJen58 21-09-22T01:57:00 [facility] ([facility])EMERGENCY PROVIDER REPORTREPORT#:[id number] REPORT STATUS: SignedDATE:09/21/22 TIME: 0157 PATIENT: LUIS ENRIQUE MARSHALL UNIT #: [id number]#: [id number] ROOM/BED:AGE: 36 SEX: F PCP PHYS: No Primary or Family PhysicianSERVICE AUTHOR: Kelly Weaver MD LOCATION: [facility] * ALL edits or amendments must be made on the electronic/computer document * HPI-Head Prob/Injury GeneralInitial Greet Date/Time 09/20/22 8825 PresentationChief Complaint HEADACHEHx Obtained From Patient)( Onset Occurred Gradual, Days agoSymptom Duration Waxes and wanesProgression since Onset Waxes and wanesCaused by No trauma by historyLocation DIFFUSEQuality AchingRadiation Does not radiateSeverity: Onset MildSeverity: Current MildAssociated withReports: Headache, Nausea. Denies: Abdominal pain, Dizziness, Neck pain, Vomiting. Associated Other Pt denies other symptomsExacerbated by NothingRelieved by Nothing Risk-Head Prob/Injury Risk Stratification)( [place] Coma Score: Copyright Sir Bill Romero Copyright [...] or with physician of your choiceReferralsProvider Group: [facility] Follow-Up: 2-3 Days Address: [address] [place] [address] [place] [address] Discharge NoteI have spoken with the patient [...] or a call to 911. at 0841RPT #:[id number] OF REPORTEDEmergency department [id number]:57:00Z.[id number] for patient [id number]36:41:15 [facility]22-[facility] 18:30:00 [id number] [id number] 21-09-21T18:30:00 [facility] ([facility])EMERGENCY PROVIDER REPORTREPORT#:[id number] REPORT STATUS: SignedDATE:09/20/22 TIME: 1829 PATIENT: LUIS ENRIQUE MARSHALL UNIT #: [id number]#: [id number] ROOM/BED:AGE: 36 SEX: F PCP PHYS: No Primary or Family PhysicianSERVICE AUTHOR: Elvis Rodrigez NP LOCATION: [facility] * ALL edits or amendments [...] requesting to have a Tylenol 3 or [place] for pain. Patient denies past medical history [...] Interpreted by me, Pulse oximetry normal Time 1723 Re-Evaluation MDM [...] PainDeparture FormsLOW [facility]ST OR [facility] Discharge NoteI have spoken with [...] 09/21/22 Patient Discharge Departure Discharge/Care PlanReferralsResource Referral: [facility] Address: [address] [place] [address] Supervising Physician Note MidLv Saw Pt AloneI have reviewed the PA/TELECOM ASSISTANT's note and plan of care. I was available for consultation as needed at all times during the patient's visit in the emergency department. I agree with the clinical impression, plan and disposition. at 1849 at 2208RPT #:[id number] OF REPORTEDEmergency department [id number]:30:00Z.[id number] for patient fctdMNASXYJUSIAVNI4736-04-75D76:49:41 HCAWU
--- NOTE | 2023-10-20 01:47 | EDPHYS ---
Physician Documentation [facility] Name: Carolyn Marshall Age: 38 yrs Sex: Female : 1985 Arrival Date: 10/20/2023 Time: 00:07 Bed 14 Private MD: ED Physician Chaitanya Trent HPI: 10/19 00:33 This 38 yrs old Female presents to ER via EMS with complaints of Suicidal ec2 Ideation, Anxiety. 00:33 Patient is here for reported suicidal comments. EMS reports that she had made comments ec2 that she was looking for housing and senior care and ultimately they stated that they cannot help her, subsequently stated that she was suicidal as well. Patient was seen here the past several days with similar complaints. On my discussion, patient is generally uncooperative, states that she needs a bed. Patient she needs "help". When I try to get her to explain what exactly she needs she is unable to give me information. Patient does not give me a direct plan of how she wants to kill himself.. Historical: - Allergies: 00:20 No Known Allergies; km8 - Home Meds: 00:20 benztropine 1 mg Oral tablet nightly [Active]; clonazepam 0.5 mg Oral tablet [Active]; km8 divalproex 500 mg Oral Tablet 1 tab nightly [Active]; haloperidol 10 mg Oral tablet 1 tab 2 times per day [Active]; sertraline 50 mg Oral tablet 1 tab daily [Active]; trazodone 50 mg Oral tablet 1 tab every day at bedtime [Active]; - PMHx: 00:20 Bipolar disorder; PTSD (Bipolar disorder); Schizophrenia; Substance Abuse; km8 - PSHx: 00:20 Unable to Obtain; km8 - Immunization history:: Adult Immunizations unknown. - Infectious Disease History:: Denies. - Social history:: Smoking status: Patient reports the use of cigarette tobacco products, smokes one pack cigarettes per day. ROS: 00:33 Constitutional: as per hpi ec2 Exam: 00:33 Constitutional: GEN: NAD Head: atraumatic Eyes: EOMI Ears: External ears are ec2 normal. CV: regular rate LUNGS: no respiratory distress ABD: non-distended SKIN: no evidence of rashes MSK: no evidence of trauma NEURO: moves all extremities equally. Psych: Generally uncooperative individual who does not seem to be in any distress, but is not. Endorse suicidality Vital Signs: 00:08 BP 111 / 68; Pulse 88; Resp 16; Temp 98.6(TE); Pulse Ox 98% on R/A; Weight 81.65 kg km8 (R); Height 5 ft. 6 in. (R); Pain 10/10; 09:43 BP 122 / 86; Pulse 81; Resp 16; Pulse Ox 99% on R/A; iw 11:39 BP 118 / 81; Pulse 74; Resp 18; Pulse Ox 99% ; cp4 00:08 Body Mass Index 29.05 (81.65 kg, 167.64 cm) km8 00:08 Pain Scale: Adult km8 [place] Coma Score: 00:08 Eye Response: spontaneous(4). Motor Response: obeys commands(6). Verbal Response: km8 oriented(5). Total: 15. MDM: 00:10 Patient medically screened. ec2 00:33 Data reviewed: vital signs. ED course: Patient arrives today for evaluation of lack of ec2 housing and reported suicide statements. Examination remarkable for generally uncooperative individual who does not want to seek help. I will discuss with edmar Watkins and have them evaluate her. FILOMENA placed by PD.. 01:46 ED course: Edmar Watkins was able to evaluate the patient she was cooperative with them, ec2 had made some suicidal comments and they recommended inpatient hospitalization will attempt placement.. Administered Medications: 02:14 Drug: HALdol (as decanoate) IM 10 mg IM once Route: IM; Site: right deltoid; km8 03:33 Follow up: Response: No adverse reaction; Anxiety decreased km8 Disposition Summary: 10/20/23 01:47 Transfer Ordered Reason: Higher level of care ec2 Condition: Stable ec2 Problem: an ongoing problem ec2 Symptoms: are unchanged ec2 Accepting Physician: transferring doc(10/20/23 11:42) cp4 Diagnosis - Suicidal ideations ec2 Discharge Instructions: - Discharge Summary Sheet ec2 - Suicidal Feelings: How to Help Yourself ec2 Forms: - Medication Reconciliation Form ec2 - SBAR form ec2 Signatures: Chaitanya Trent MD MD ec2 Mariangel Kamara cp4 Nicky Portillo RN RN km8 Corrections: (The following items were deleted from the chart) 11:42 01:47 transferring doc ec2 cp4
--- NOTE | 2023-10-20 01:47 | ER ---
Nurse's Notes [facility] Name: Carolyn Marshall Age: 38 yrs Sex: Female : 1985 Arrival Date: 10/20/2023 Time: 00:07 Bed 14 Private MD: Diagnosis: Suicidal ideations Presentation: 10/19 00:08 Chief complaint: Parent and/or Guardian states: "I feel an anxiety attack coming on and km8 my foot hurts", pt reports SI when asked, with no plan and left foot pain from yesterday's injuries; pt's left foot and ankle noted to be swollen EMS states: under FILOMENA for SI and left foot pain; found at [facility]. Coronavirus screen: Client denies travel out of the [place] in the last 14 days. Ebola Screen: No symptoms or risks identified at this time. Initial Sepsis Screen: Does the patient meet any 2 criteria? No. Patient's initial sepsis screen is negative. Does the patient have a suspected source of infection? No. Patient's initial sepsis screen is negative. Risk Assessment: Do you want to hurt yourself or someone else? Patient reports desire/thoughts of hurting themselves or someone else. Provider notified. Onset of symptoms was October 19, 2023 at 22:00. 00:08 Method Of Arrival: EMS: [facility] km8 00:08 Acuity: [place] 2 km8 00:08 Note pt under [facility] from [facility]. km8 Triage Assessment: 00:08 General: Appears in no apparent distress. unkempt, Behavior is anxious, uncooperative. km8 Pain: Complains of pain in left foot Pain currently is 10 out of 10 on a pain scale. EENT: No signs and/or symptoms were reported regarding the EENT system. Neuro: Level of Consciousness is awake, alert, obeys commands, Oriented to person, place, time, situation. Cardiovascular: Denies chest pain, shortness of breath, Patient's skin is warm and dry. Respiratory: Airway is patent Respiratory effort is even, unlabored, Respiratory pattern is regular, symmetrical. GI: No signs and/or symptoms were reported involving the gastrointestinal system. : No signs and/or symptoms were reported regarding the genitourinary system. Derm: No signs and/or symptoms reported regarding the dermatologic system. Skin is intact, Skin is dry, Skin is normal, Skin temperature is warm. Musculoskeletal: Range of motion: limited in left ankle Swelling present in left foot. Historical: - Allergies: 00:20 No Known Allergies; km8 - Home Meds: 00:20 benztropine 1 mg Oral tablet nightly [Active]; clonazepam 0.5 mg Oral tablet [Active]; km8 divalproex 500 mg Oral Tablet 1 tab nightly [Active]; haloperidol 10 mg Oral tablet 1 tab 2 times per day [Active]; sertraline 50 mg Oral tablet 1 tab daily [Active]; trazodone 50 mg Oral tablet 1 tab every day at bedtime [Active]; - PMHx: 00:20 Bipolar disorder; PTSD (Bipolar disorder); Schizophrenia; Substance Abuse; km8 - PSHx: 00:20 Unable to Obtain; km8 - Immunization history:: Adult Immunizations unknown. - Infectious Disease History:: Denies. - Social history:: Smoking status: Patient reports the use of cigarette tobacco products, smokes one pack cigarettes per day. Screenin:08 [facility] ED Fall Risk Assessment (Adult) History of falling in the last 3 months, km8 including since admission Yes- single mechanical fall (1 pt) Confusion or Disorientation No (0 pts) Intoxicated or Sedated No (0 pts) Impaired Gait Yes (1 pt) Mobility Assist Device Used No (0 pt) Altered Elimination No (0 pt) Score/Fall Risk Level 0 - 2 = Low Risk Oriented to surroundings, Maintained a safe environment, Educated pt \\T\\ family on fall prevention, incl call for assistance when getting out of bed, Assessed \\T\\ reinforced patient's understanding of fall precautions. Abuse screen: Denies threats or abuse. Denies injuries from another. Nutritional screening: No deficits noted. Tuberculosis screening: No symptoms or risk factors identified. Assessment: 00:08 Reassessment: see triage assessment. km8 01:00 Reassessment: Patient appears in no apparent distress at this time. No changes from 8 previously documented assessment. Patient and/or family updated on plan of care and expected duration. Pain level reassessed. Patient is alert, oriented x 3, equal unlabored respirations, skin warm/dry/pink. 01:22 Reassessment: pt speaking with [facility] visitor services representative via [employer] . km8 02:00 Reassessment: Patient appears in no apparent distress at this time. pt sleeping at this km8 time. 03:00 Reassessment: Patient appears in no apparent distress at this time. No changes from km8 previously documented assessment. 04:00 Reassessment: Patient appears in no apparent distress at this time. No changes from km8 previously documented assessment. 05:00 Reassessment: Patient appears in no apparent distress at this time. No changes from km8 previously documented assessment. 06:00 Reassessment: Patient appears in no apparent distress at this time. No changes from km8 previously documented assessment. 07:33 General: Appears in no apparent distress. Behavior is calm, cooperative. Neuro: Level iw of Consciousness is awake, alert, obeys commands, Moves all extremities. Full function. Cardiovascular: Patient's skin is warm and dry. Respiratory: Respiratory effort is even, unlabored, Respiratory pattern is regular, symmetrical. GI: Abdomen is non-distended. Derm: Skin is healthy with good turgor. Musculoskeletal: Range of motion: intact in all extremities. 09:45 Reassessment: report given to Radha raygoza [facility]. iw Psych: 00:08 [place] Suicide Severity Screening: In the past month, have you wished you were km8 or wished you could go to sleep and not wake up? Patient responds "yes." "In the past month, have you actually had any thoughts of killing yourself?" Patient responds "yes." "In your lifetime, have you ever done anything, started to do anything, or prepared to do anything to end your life?" Patient responds "no.". Subjective: Patient's mood is sad, Delusions are denied, Hallucinations are denied Having thoughts of suicide. Denies suicidal plan. Objective: Patient is uncooperative, using poor eye contact, restless, Speech is normal, Affect is flat. Interventions: Removed personal items and placed in bag. Searched person for dangerous items. Belonging list filled out. placed in paper scrubs. Safety Checks: Personal items have been removed. Door is open. No visitors are present at this time. Patient uses Patient uses methamphetamines Last use was 3 days ago. Commitment: Patient will be a voluntary commitment. pt has FILOMENA from [facility]. Vital Signs: 00:08 BP 111 / 68; Pulse 88; Resp 16; Temp 98.6(TE); Pulse Ox 98% on R/A; Weight 81.65 kg km8 (R); Height 5 ft. 6 in. (R); Pain 10/10; 09:43 BP 122 / 86; Pulse 81; Resp 16; Pulse Ox 99% on R/A; iw 11:39 BP 118 / 81; Pulse 74; Resp 18; Pulse Ox 99% ; cp4 00:08 Body Mass Index 29.05 (81.65 kg, 167.64 cm) 8 00:08 Pain Scale: Adult km [place] Coma Score: 00:08 Eye Response: spontaneous(4). Motor Response: obeys commands(6). Verbal Response: km oriented(5). Total: 15. ED Course: 00:08 Patient arrived in ED. rv1 00:08 Safety Checks: Personal items have been removed. The door is open or patient has been km8 placed in a hallway bed/chair. There are no family/friend visitors at this time Sitter present at this time. 00:08 Arm band placed on right wrist. 00:08 Patient has correct armband on for positive identification. Bed in low position. Patient is placed in psych hold. 00:09 Chaitanya Trent MD is Attending Physician. ec2 00:15 Nicky Portillo RN is Primary Nurse. 00:20 Triage completed. 00:23 contacted [facility] to initiate screening. kmf 00:24 Safety checks: Items removed: yes. Door open/sign placed on door: yes. Sitter present: rv1 Yes. Sitter at bedside. 00:45 Valuables inventory done. Locked in safe. See valuables checklist. Door closed. Noise rv1 minimized. Visitors limited. Lights dimmed. Warm blanket given. 00:50 Provided Education on: transfer process. 8 01:00 Safety Checks: Personal items have been removed. The door is open or patient has been km8 placed in a hallway bed/chair. There are no family/friend visitors at this time Sitter present at this time. 01:19 [facility] did a facetime screening. [facility] 02:00 Safety Checks: Personal items have been removed. The door is open or patient has been km8 placed in a hallway bed/chair. There are no family/friend visitors at this time Sitter present at this time. 02:03 [facility] recommended inpatient, faxed clinical's to [facility], [facility], and [facility]. 02:05 spoke with screener at [facility], she let me know that [facility] had no beds kmf currently open at [facility], but she would try to reach out to someone in the AM. 03:00 Safety Checks: Personal items have been removed. The door is open or patient has been km8 placed in a hallway bed/chair. There are no family/friend visitors at this time Sitter present at this time. 03:32 No provider procedures requiring assistance completed. km8 04:00 Safety Checks: Personal items have been removed. The door is open or patient has been km8 placed in a hallway bed/chair. There are no family/friend visitors at this time Sitter present at this time. 04:13 faxed clinical's to [facility]. kmf 05:00 Safety Checks: Personal items have been removed. The door is open or patient has been km8 placed in a hallway bed/chair. There are no family/friend visitors at this time Sitter present at this time. 06:00 Safety Checks: Personal items have been removed. The door is open or patient has been km8 placed in a hallway bed/chair. There are no family/friend visitors at this time Sitter present at this time. 06:20 Chaitanya Trent MD is Attending Physician. ec2 07:34 Patient did not have IV access during this emergency room visit. iw 08:03 Diet tray given. [id number] 09:47 administrative approval given to Stephanie Gerber by Cathy Ryder/ patient has been accepted to [facility]/. 10:[facility] to page the Research Software Engineer acid concentrator to sign the transfer warrant. 10:51 [facility] called for transport. Administered Medications: 02:14 Drug: HALdol (as decanoate) IM 10 mg IM once Route: IM; Site: right deltoid; km8 03:33 Follow up: Response: No adverse reaction; Anxiety decreased km8 Medication: 00:08 VIS not applicable for this client. km8 Outcome: 01:47 ER care complete, transfer ordered by . ec2 11:40 Transferred Note: by law enforcement to [facility] cp4 11:40 Condition: stable 11:40 Instructed on the need for transfer, 11:42 Patient left the ED. cp4 Signatures: Stephanie Galindo RN RN Kalpana Avitia Rebecca rv1 Chaitanya Trent MD MD 2 Mariangel Kamara cp4 Anastasia Deshpande kmf Nicky Portillo RN RN km8 Ryan Patterson [email or web address] Corrections: (The following items were deleted from the chart) 00:26 00:08 Risk Assessment: Do you want to hurt yourself or someone else? Patient reports no km8 desire to harm self or others. km8 03:33 03:32 Provided Education on: transfer process. km8 km8
[2023-10-20] MEDS ORDERED: HALOPERIDOL LACT 5 MG/ML INJ ONE (02:08)
[2023-10-20 12:09] VITALS: BP 118/81; TEMP 98.6; O2SAT 99
== END 2023-10-20 11:42 ==
LOC: ER 00:07
DX: R45.851 Suicidal ideations (principal); F20.9 Schizophrenia, unspecified; F17.210 Nicotine dependence, cigarettes, uncomplicated
CPT/HCPCS: 96372; 99285; J1630